=== PATIENT | female | born 1945 | race Caucasian/White ===

== ENCOUNTER 2021-07-22 14:35 | Emergency (ER) | payer MEDICARE, OTHER, SELFPAY ==
--- NOTE | 2021-07-22 14:38 | W.ED.GENADLT ---
HPI - General Adult General: Chief complaint: General Medical Stated complaint: RIGHT UPPER THIGH PAIN R/O DVT Time Seen by Provider: 07/22/21 14:37 History of Present Illness: HPI narrative: Ms. Wiley is a 75-year-old lady with history of pain, hypertension, hyperlipidemia who presents to the emergency department due to leg pain. Symptom onset was approximately 4:56 AM this morning and sudden. She noticed right upper thigh pain which is worse on the outside and associated swelling. She does not recall any sort of preceding injury. Symptom intensity is moderate. Quality is aching. Worse with exertion or movement. No other specific changes in health, exacerbating, relieving factors identified. Patient was seen at outside clinic without capability for DVT study and a D-dimer was performed which was elevated. Review of Systems General: Reports: 10 or more systems reviewed and unremarkable except in HPI and below Physical Exam Narrative: EXAM NARRATIVE: GENERAL/CONSTITUTIONAL -uncomfortable appearing. Obese Eyes -no scleral icterus, no conjunctival injection ENMT - Atraumatic external nose and ears. Moist mucous membranes NECK - supple. trachea midline CARDIOVASCULAR - regular rate and rhythm. RESPIRATORY -clear to auscultation bilaterally. ABDOMEN/GI - Nontender/Nondistended. MSK -right thigh with swelling, tender to palpation, no discrete lesions or identified injury. Distal CMS intact SKIN - Warm, Dry. No rashes NEURO - alert and appropriately oriented. Moves all extremities equally. Course ED course: - Patient was seen and evaluated by me at bedside - Patient placed on cardiac monitors, IV access obtained - Initial evaluation notable for exam as above -Symptom treatment ordered - Labs notable for no leukocytosis. Mild evidence of dehydration with no recent creatinine - Imaging notable for negative DVT study. Unfortunately D-dimer was positive at outside facility and the patient does endorse mild shortness of breath therefore CTA required. In order to obtain CTA labs were obtained as noted above. CTA negative for pulmonary embolism. - Upon serial reexamination after treatment the patient was improved with symptom treatment - Based on patient history, evaluation, labs, and imaging as interpreted the most likely cause of the patient's condition is unclear soft tissue swelling - The results of ED evaluation were discussed with the patient including prescriptions and/or symptomatic cares (if applicable) including appropriate and responsible use, followup plan, and return precautions. The patient verbalized understanding and felt safe for discharge. - Patient discharged in satisfactory condition. Vital Signs: Vital signs: Vital Signs Temperature 97.6 F 07/22/21 14:50 Pulse Rate 70 07/22/21 19:28 Respiratory Rate 16 07/22/21 19:28 Blood Pressure 170/106 07/22/21 19:28 Pulse Oximetry 95 07/22/21 19:28 [facility] - General Adult Medical Records: Attestation: I reviewed the patient's medical records. Lab Data: Attestation: I reviewed the patient's lab results. Labs: Lab Results 07/22/21 07/22/21 17:02 17:02 WBC 9.5 10^3/uL 10^3/ uL (4.0-10.0) RBC 5.00 10^6/uL 10^6 /uL (4.1-5.3) Hgb 13.0 g/dL g/dL (11.5-15.3) Hct 41.1 % % (37.0-47.0) MCV 82.2 fl fl (81-99) MCH 26.0 pg L pg (28.0-34.0) MCHC 31.6 g/dL g/dL (30.0-36.0) RDW 15.4 % H % (12.1-15.1) Plt Count 269 10^3/cmm 10^3 /cmm (130-400) MPV 12.2 fL H fL (7.4-10.4) Neut % (Auto) 55.7 % % Lymph % (Auto) 32.8 % % [place] % (Auto) 9.1 % % Eos % (Auto) 1.8 % % Baso % (Auto) 0.3 % % Neut # (Auto) 5.29 10^3/uL 10^3 /uL (1.8-7.7) Lymph # (Auto) 3.1 10^3/uL 10^3/ uL (0.8-4.8) [place] # (Auto) 0.9 10^3/uL 10^3/ uL (0.2-0.9) Eos # (Auto) 0.2 10^3/uL 10^3/ uL (0.0-0.8) Baso # (Auto) 0.0 10^3/uL 10^3/ uL (0.0-0.1) Nucleated RBC % (a uto) 0 % % Nucleated RBCs # 0.0 /100WBC /100W BC Sodium 137 mmol/L mmol/L (136-145) Potassium 4.4 mmol/L mmol/L (3.5-5.1) Chloride 98 mmol/L mmol/L (98-107) Carbon Dioxide 28 mmol/L mmol/L (22-29) Anion Gap 15.4 (5-19) BUN 20 mg/dL mg/dL (8-23) Creatinine 1.4 mg/dL H mg/dL (0.5-0.9) GFR Calculation Not Reportable Glucose 105 mg/dL mg/dL (65-115) Calculated Osmolal ity 287 mOsm/kg mOsm/ kg (285-295) Calcium 9.3 mg/dL mg/dL (8.5-10.5) EKG Data^: EKG 1: Attestation: I personally reviewed and interpreted this EKG as follows: EKG interpretation date: 07/22/21 EKG interpretation time: 18:30 Interpretation: Twelve-lead EKG shows a regular rhythm at a rate of 60. DE interval 194, QRS duration 98, QTc 455. Left axis deviation. Interpretation: Sinus rhythm. Nonspecific QRS morphology abnormalities. Computer generated interpretation: Venous Duplex 07/22/21 15:07 IMPRESSION: No sonographic evidence of deep vein thrombosis. Chest CTA 07/22/21 16:41 IMPRESSION: 1. No CT evidence of pulmonary embolism. 2. Additional findings, as above. Discharge Plan Discharge Patient Disposition: Home Clinical Impression: Leg swelling, Acute leg pain, Elevated d-dimer, Hypertension, uncontrolled Condition: Stable Prescriptions: No Action hydrocodone-acetaminophen 10-325 mg tablet 1 tab PO BID PRN (Reason: Pain) RF: 0 acetaminophen [Tylenol Extra Strength] 500 mg tablet 500 mg PO Q6H PRN (Reason: Pain) RF: 0 alendronate [Fosamax] 70 mg tablet 70 mg PO Q7D RF: 0 atenolol 25 mg tablet 25 mg PO BID RF: 0 cholecalciferol (vitamin D3) 1,250 mcg (50,000 unit) tablet 1,250 mcg PO Q7D RF: 0 furosemide 20 mg tablet 20 mg PO BID RF: 0 gabapentin 100 mg capsule 200 mg PO BEDTIME RF: 0 lisinopril 20 mg tablet 20 mg PO BID RF: 0 mupirocin 2 % ointment 1 applic topical DAILY RF: 0 pantoprazole [Protonix] 40 mg tablet,delayed release (DR/EC) 40 mg PO DAILY RF: 0 potassium chloride 10 mEq capsule, extended release 10 meq PO DAILY RF: 0 pramipexole [Mirapex] 0.75 mg tablet 0.75 mg PO DAILY RF: 0 rosuvastatin [Crestor] 5 mg tablet 5 mg PO DAILY RF: 0 trazodone 50 mg tablet 50 - 100 mg PO BEDTIME RF: 0 Euthyrox 100 mcg tablet 100 mcg PO DAILY RF: 0 promethazine 25 mg tablet 25 mg PO Q8H PRN (Reason: Nausea) RF: 0 sertraline 25 mg Tablet 25 mg PO DAILY RF: 0 albuterol sulfate 90 mcg/actuation Hfa Aerosol Inhaler 2 puff INHALATION Q6H PRN (Reason: Shortness Of Breath) RF: 0 Voltaren 1 % Gel 2 g TOPICAL QID PRN (Reason: Pain) RF: 0 Discharge Orders: Discharge ED (Routine); Ordered 07/22/21 Ordered By: Vladislav Loya Referrals: Arnoldo Wiley [Primary Care Provider] - Discharge Diet: Usual diet Discharge Activity: Increase activity as tolerated Patient Instructions: Hypertension (ED), Leg Pain (ED), Opioid Safety Activity Restrictions/Additional Instructions: Thank you for visiting the emergency department. You were seen and evaluated for leg pain and swelling. The exact cause of your symptoms is unclear, ultrasound did not reveal a blood clot and your previously obtained x-rays were read as normal. Given the elevated D-dimer a CTA was performed and no evidence of pneumonia or blood clot in your lungs were seen. Please follow-up with your primary care provider. Your blood pressure was significantly elevated and likely needs additional medication/treatment. Return to the emergency department for worsening symptoms or anything else that you are concerned about and feel needs emergency department evaluation. 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
[2021-07-22 14:50] VITALS: BP 214/104; PULSE 56; RESP 16; TEMP 36.4; O2SAT 96; BMI 38.6
--- NOTE | 2021-07-22 15:07 | USR_ITS ---
PROCEDURE INFORMATION: Exam: US Duplex Right Lower Extremity Veins, Limited Exam date and time: 07/22/2021 3:07 PM Age: 75 years old Clinical indication: Pain; Leg, upper; Right; Additional info: Swelling, right thigh pain, R/O dvt TECHNIQUE: Imaging protocol: Real-time Duplex ultrasound of the Right Lower Extremity with 2-D pollard scale, color Doppler flow and spectral waveform analysis with image documentation. Limited exam was focused on the right lower extremity veins. COMPARISON: No relevant prior studies available. FINDINGS: Right deep veins: Unremarkable. The common femoral, femoral, proximal profunda femoral, popliteal, posterior tibial and peroneal veins are patent without thrombus. Normal Doppler waveforms. Normal compressibility and/or augmentation response. Right superficial veins: Unremarkable. Saphenofemoral junction is patent without thrombus. Soft tissues: Unremarkable. US/[place] [id number] IMPRESSION: No sonographic evidence of deep vein thrombosis.
[2021-07-22] MEDS: oxyCODONE 5 mg IR Tab/Cap PO (16:13)
--- NOTE | 2021-07-22 16:41 | CTR_ITS ---
PROCEDURE INFORMATION: Exam: CTA Chest With Contrast Exam date and time: 07/22/2021 4:41 PM Age: 75 years old Clinical indication: Abnormal findings; Abnormal diagnostic tests; Elevated d-dimer; Prior surgery; Surgery date: 6+ months; Surgery type: Gb; Additional info: Elevated d dimer, SOB TECHNIQUE: Imaging protocol: Computed tomographic angiography of the chest with contrast. Axial, coronal and sagittal reformatted images were created and reviewed. 3D rendering (Not supervised by radiologist): MIP and/or 3D reconstructed images were created by the technologist. Radiation optimization: All CT scans at this facility use at least one of these dose optimization techniques: automated exposure control; mA and/or kV adjustment per patient size (includes targeted exams where dose is matched to clinical indication); or iterative reconstruction. Contrast material: VISI; Contrast volume: 95 ml; Contrast route: INTRAVENOUS (IV); COMPARISON: CR Chest 2 views* [id number] 04/11/2019 5:59 PM RADIATION DOSE METRICS: Total DLP (mGy-cm): 576.01 FINDINGS: Pulmonary arteries: Contrast opacification satisfactory. No intraluminal filling defect. Aorta: Unremarkable. No aneurysm or dissection. Other arteries: Mild atherosclerotic disease. No aneurysm or dissection. Lungs: Mild central peribronchial thickening, suggestive of airway inflammation. Mild linear stranding and groundglass, likely due to atelectasis and/or scarring. No focal consolidation. Pleural spaces: Unremarkable. No pneumothorax. No pleural effusion. Heart: Unremarkable. No cardiomegaly. No pericardial effusion. Lymph nodes: No pathologically enlarged lymph nodes. Gallbladder and bile ducts: Status post cholecystectomy. No biliary ductal dilatation. Bones/joints: No acute osseous abnormality. Osteopenia. Degenerative changes. Soft tissues: Unremarkable. CT/CT angio chest PE protcl [id number] IMPRESSION: 1. No CT evidence of pulmonary embolism. 2. Additional findings, as above.
--- NOTE | 2021-07-22 17:11 | ECG_ITS ---
[facility] Test Date: 2021-07-22 Pat Name: Monique Wiley Department: Room: Gender: Female Facilities Officer: : 1945 Requested By: Vladislav Loya Order Number: [id number] Renteria MD: Bee Rios M.D. Measurements Intervals [place] Rate: 60 P: 45 GA: 194 QRS: -15 QRSD: 98 T: 55 QT: 453 QTc: 455 Interpretive Statements SINUS RHYTHM NONSPECIFIC ST & T-WAVE ABNORMALITY Compared to ECG 08/31/2016 07:11:19 T-wave abnormality now present Sinus tachycardia no longer present Myocardial infarct finding no longer present Electronically Signed On 07-23-2021 16:55:43 INTERNET PROJECT MANAGER by Bee Rios M.D. [id number]
[2021-07-22 17:20] LABS: Basophils % 0.3 %; Eosinophils # 0.2 10^3/uL (0.0-0.8); Eosinophils % 1.8 %; Hematocrit 41.1 % (37.0-47.0); Lymphocytes # 3.1 10^3/uL (0.8-4.8); Lymphocytes % 32.8 %; Mean Corpuscular HGB Conc 31.6 g/dL (30.0-36.0); Mean Corpuscular Volume 82.2 fl (81-99); Mean Platelet Volume 12.2 fL (7.4-10.4); Monocytes # 0.9 10^3/uL (0.2-0.9); Monocytes % 9.1 %; Neutrophils # 5.29 10^3/uL (1.8-7.7); Neutrophils % 55.7 %; Nucleated Red Blood Cells % 0 %; Platelet Count 269 10^3/cmm (130-400); Red Cell Distribution Width 15.4 % (12.1-15.1); White Blood Count 9.5 10^3/uL (4.0-10.0)
[2021-07-22 17:30] LABS: Blood Urea Nitrogen 20 mg/dL (8-23); Calcium 9.3 mg/dL (8.5-10.5); Carbon Dioxide 28 mmol/L (22-29); Chloride 98 mmol/L (98-107); Glucose 105 mg/dL (65-115); Osmolality Calculated 287 mOsm/kg (285-295); Sodium 137 mmol/L (136-145)
[2021-07-22 17:36] LABS: Anion Gap 15.4 (5-19); Potassium 4.4 mmol/L (3.5-5.1)
[2021-07-22] MEDS: iodixanol 320 mg/mL 100mL Btl IV (18:17)
[2021-07-22] MEDS: hyDRALAzine 20 mg/mL INJ 1 mL 10 MG IVP (19:04)
[2021-07-22 19:28] VITALS: BP 170/106; PULSE 70; RESP 16; O2SAT 95
== END 2021-07-22 19:29 | disposition home or self-care (01) ==
PROVIDERS: Emergency Provider Emergency Medicine; PCP Family Medicine
DX: M79.604 Pain in right leg (principal); M79.89 Other specified soft tissue disorders; I10 Essential (primary) hypertension; R79.89 Other specified abnormal findings of blood chemistry
CPT/HCPCS: 71275; 80048; 85025; 93005; 93971; 96374; 99283; J0360; Q9967

== ENCOUNTER 2021-11-15 08:51 | Outpatient (CLI) | payer MEDICARE, OTHER, SELFPAY ==
[2021-11-15 09:10] VITALS: BMI 38.2
--- NOTE | 2021-11-15 09:12 | ECG_ITS ---
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 Interpretive Statements NAME OF STUDY: LEXISCAN SESTAMIBI STRESS TEST INDICATION: Chest Pain, PROCEDURE: At the baseline, the EKG revealed normal sinus rhythm with some nonspecific ST changes.. The baseline blood pressure was 218/99 mm Hg with a heart rate of 63 beats/min. Lexiscan was infused over a period of 20 seconds. A total of 0.4 milligrams of Lexiscan was infused. The stress phase was continued for a total of 5 minutes. Heart rate at the end of the stress phase was 84 with a blood pressure 231/97. The EKG at the peak infusion revealed more prominent ST depressions in the inferior and anterolateral leads. Sestamibi was injected 20 seconds after the Lexiscan infusion. Blood pressure at the end of the recovery phase was 203/98 with a heart rate of 64 per minute. The EKG reverted back to the baseline CONCLUSION: 1. Nonspecific EKG changes with the LexiScan infusion 2. No LexiScan induced chest pain or cardiac arrhythmia 3. Normal blood pressure and heart rate response 4. Sestamibi/sestamibi perfusion scan pending; see separate report. Pt became dizzy with nausea while walking from [facility] to [facility]-after the resting scan. Pre stress test chest pain 6/10. The pain increased in intensity 8/10 during test . 2 doses aminophylline given in recovery phase. Post test patient reported chest pain was same intensity 6/10 as it was before test. Electronically Signed On 11-17-2021 11:15:04 CDT by Rhett Luu M.D. [id number]
--- NOTE | 2021-11-15 09:12 | NMCV_ITS ---
NM naheed perf SPECT r/s* [id number] Monique Wiley Age: 76 Gender: F : 1945 Exam Date: 11/15/2021 09:52 Ordering Phys: Arnoldo Wiley Technologist: BASIA Rivera Exam Location: [facility] Indications: CHEST PAIN STRESS TEST Please see separate stress test report in [facility] for full findings IMAGE PROTOCOL Rest/Stress 1 Lexiscan Day Radiopharmaceutical Dose (mCi) Administration Site Administered by Rest: Tc-99m 10.8 IV BASIA Pascual Sestamibi Stress:Tc-99m 32.7 IV BASIA Pascual Sestamibi Rest: 15-Nov-2021 60 Discovery 630 Stress: 15-Nov-2021 30 Discovery 630 0.4mg Lexiscan. Supine position only as patient was unable to lay prone. SPECT RESULTS Technical Quality: Excellent Raw Data Analysis: Normal Image Corrections: No attenuation or motion correction applied Summed Stress Score: 4 Summed Rest Score: 0 Summed Difference Score: 4 PERFUSION FINDINGS Small to moderate area of decreased tracer uptake in the mid inferolateral, mid anterolateral and apical lateral regions. Significant reversibility was noted in these regions at rest FUNCTIONAL RESULTS (calculated via Gated SPECT) Stress Image LV EF (%): 75 Stress EDV (mL):89 TID: 0.82 Stress ESV (mL):22 FUNCTIONAL FINDINGS: Segmental wall motion analysis revealing no gross wall motion abnormalities IMPRESSIONS 1. Myocardial perfusion imaging revealing small to moderate area of reversible defect in the inferolateral, anterolateral and apical lateral regions, suggestive of ischemia in the distribution of the left circumflex artery. 2. Normal LV ejection fraction of 75%. 3. LV wall motion analysis revealing no gross wall motion abnormalities. 4. Normal LV volume No similar previous studies are available for comparison. Dr Rhett Luu MD [facility] (Electronically Signed) Final Date: 15 November 2021 13:04 S
[2021-11-15] MEDS: regadenoson 0.4 Mg/5 ml Syringe IVP (10:34)
[2021-11-15] MEDS: ondansetron 2 mg/ML SDV 2 mL 4 MG IVP (10:43)
[2021-11-15] MEDS: aminophylline 25 mg/mL SDV 10 mL IVP ×2 (10:55→11:04)
--- NOTE | 2021-11-15 10:56 | PC.NURSE ---
Pre stress test note Pt became dizzy and nauseated walking [facility] to [facility]. Wheelchair obtained. 4mg zofran given prior to test. Pre stress test pt reports cp of 01/04.
[2021-11-15 11:13] VITALS: BP 203/98; PULSE 64
== END 2021-11-15 08:52 | disposition home or self-care (01) ==
LOC: RAD 08:52 → CDL 09:16
PROVIDERS: PCP Family Medicine; Visit Provider Family Medicine
DX: R07.9 Chest pain, unspecified (principal); R06.02 Shortness of breath
CPT/HCPCS: 78452; 93017; A9500; J0280; J2405; J2785

== ENCOUNTER → 2022-01-17 13:56 | Outpatient (BNVA) | payer MEDICARE, OTHER, SELFPAY | PROVIDERS: PCP Family Medicine; Visit Provider Internal Medicine | DX: R07.9 Chest pain, unspecified (principal); R94.39 Abnormal result of other cardiovascular function study; R01.1 Cardiac murmur, unspecified; E11.22 Type 2 diabetes mellitus with diabetic chronic kidney disease; I12.9 Hypertensive chronic kidney disease with stage 1 through stage 4 chronic kidney disease, or unspecified chronic kidney disease; N18.30 Chronic kidney disease, stage 3 unspecified; Z79.84 Long term (current) use of oral hypoglycemic drugs | CPT/HCPCS: 99204 ==

== ENCOUNTER → 2022-02-05 08:20 | Outpatient (BNVA) | payer MEDICARE, OTHER, SELFPAY | PROVIDERS: PCP Family Medicine; Visit Provider Internal Medicine | DX: R07.9 Chest pain, unspecified (principal); R94.39 Abnormal result of other cardiovascular function study; I10 Essential (primary) hypertension; R01.1 Cardiac murmur, unspecified | CPT/HCPCS: 80048; 85025; 85610 ==

== ENCOUNTER 2022-02-07 05:46 | Outpatient (CLI) | payer MEDICARE, OTHER, SELFPAY ==
[2022-02-07] VITALS (24 sets, daily range): BP systolic 117–236; BP diastolic 66–93; PULSE 56–77; RESP 15–20; TEMP 37; O2SAT 95–99; BMI 38.7
--- NOTE | 2022-02-07 06:00 | XACV_ITS ---
Exam Room: 2 Ht: 165 cm Wt: 106 kg BSA: 2.25 m2 Gender: Female : 1945 Any Known Allergies: Other Exam Priority: Routine Procedure(s): Procedure Description: Diagnostic procedure Procedure Description: Left Heart Catheterization Procedure Description: Coronary Angiography Diagnostic Cath Status: Elective Diagnostic Findings * Indication: 76-year-old female with past medical history of hypertension who was referred for evaluation of chest pain and abnormal stress test. According to patient for the last 6 months he has been having on and off substernal chest pain. It is mostly exertional. Feels pressure-like. Also feels very short of breath on exertion. Blood pressure also staying very high. Plan for left heart cath with possible percutaneous coronary intervention. * No significant disease noted in the Left Main, Left Anterior Descending, Right, or Circumflex coronary arteries. * 1st Diagonal: Moderate 60% stenosis, EUGENE: 3 flow. * Coronary angiography shows right dominance. Interventional Findings * Procedure detail: We engaged left main artery with XB 3.5 guide catheter. IV heparin was administered to maintain ACT above 250 S. After normalization, IFR wire was advanced into large sized diagonal artery. IFR value of 0.96 was obtained. This was nonischemic. iFR wire was removed and final angiogram was performed. Patient left the [employer] in a stable condition. Conclusions 1. No significant disease noted in the Left Main, Left Anterior Descending, Right, or Circumflex coronary arteries. 2. Moderate first diagonal artery stenosis. Nonischemic IFR value of 0.96. Recommendations * Aggressive risk factor control including blood pressure control. * Outpatient cardiology follow up in 4 weeks. Interventional RX Recommendation: medical therapy and/or counseling Diagnostic RX Recommendation: none Anticoagulation: Heparin Pressures Phase:Rest AO : 164 / 60 ( 96 ) @ 9:23:00 AM 166 / 61 ( 97 ) @ 9:23:00 AM LV : 157 / 4 / 21 @ 9:23:00 AM 157 / 4 / 21 @ 9:23:00 AM 153 / 6 / 22 @ 9:23:00 AM Valves Phase:DefaultPhase AV : 0.0 @ 8:47:31 AM AV Mean Gradient: 0.0 @ 8:47:31 AM Clinical Evaluation EBL: 5mL-10mL Procedural Details Procedure Consent Obtained. Admit Source: Out Patient. Pre-Procedure Time Out. Identified patient by full name and date of as verbalized by the patient/guarantor. Does the consent match the physician's order: Yes. Accurate & Complete Informed Consent: Yes. Inpatient/Outpatient History & Physical on Chart: Yes. If H&P is completed, is and addenduem needed: No; If yes, is the addendum complete: N/A. Visualize and Verify Site with Patient/Guarantor: N/A. Relevant Radiology Images available: N/A. The risks, benefits, and alternatives of sedation and/or procedure were discussed by physician. The patient agrees to continue. Procedure started. [facility] Clinical Fraility Score: 3: Managing Well. [employer] Indications: Worsening Angina, Abnormal stress test. Chest Pain Symptom Assessment: Typical Angina Symptoms. Correct patient, site and procedure confirmed by cath team. Current diagnosis: Chest Pain. PERRLA. Strong, equal hand pipefitter bilaterally. Lungs clear x 5 lobes. IV Site on Arrival: 20 gauge in the left anticubital. IV Fluids: 0.9% NaCl at KVO. 0 mL infused prior to computer lab para professional. Pre Procedural Pulses: bilateral radial was 2+. Pre Procedural Pulses: bilateral posterior tibial was Doppled. Pre Procedural Pulses: bilateral dorsalis pedis was 2+. Oxygen started at 2liters/min via nasal canula. right radial was prepped with chloroprep then draped in the usual sterile fashion. right groin was prepped with chloroprep then draped in the usual sterile fashion. Physician notified. Baseline sample Acquired. HR: 63 BPM. Physician arrived. Physician scrubbed in. Immediate Pre-Procedure Time Out. Correct Patient: Yes; Correct Procedure: Yes; Correct Site: Yes; Correct Patient Position: Yes; Correct Supplies: Yes; Dried Flammable Prep: Yes; Blood Products Available: No;. Lidocaine 1% infiltrated to the right radial. Arterial access obtained. A 5 colombian TIG catheter in over wire. Multiple views taken of left coronary artery. Catheter redirected to the RCA. Multiple views taken of right coronary artery. EDP Sample taken: LV 157/4,21; HR: 61 BPM; SpO2: 96%. Pullback taken: LV 153/6,22; AO 164/60(96); Mean: 0mmHg, Peak to Peak: 0mmHg, SEP: 4sec/min; HR: 63 BPM; SpO2: 98%. Catheter out. 6 colombian XB 3.5 guide catheter was inserted over the wire. Standard wire out. Guide catheter out over wire due to kink in guide catheter. Second 6 colombian XB 3.5 guide catheter was inserted over the wire. iFR pressure wire advanced through guide catheter and directed to ostial 1st diagonal branch. IFR pressure wire advanced across lesion to distal diagonal artery. IFR ostial 1st diagonal 0.96. IFR Pull back 0.93. IFR pressure wire out through guide catheter. Guide catheter out. Post Procedure: Pulses reassessed and unchanged. PERRLA. Strong, equal hand pipefitter bilaterally. No VTE prophylaxis required. A TR Band was successful obtaining hemostatsis at the Right Radial artery insertion site. Medication's Wasted: Lidocaine 1% = 2 mL. Medication's Wasted: Nitro = 49.7 mg. Medication's Wasted: Heparin = 1000 unit. Total IV fluids: 42 mL. Post-op diagnosis: Moderate diagonal stenosis. Complications: None. Estimated blood loss: 5mL-10mL. Responsiveness - Normal response to verbal stimuli; alert and oriented, PERRLA. Airway - Unaffected, no intervention required; spontaneous ventilation. Circulation: W/N/L, pulses unchanged. Nausea/Vomiting: N/A. Procedure completed. Patient transferred by wheelchair to CPRU. Access Site Site: Right Radial artery Sheath Size: 6 Fr Hemostasis Method: TR Band Hemostasis Success: Successful Procedure Medications Start: 8:09 AM Stop: 8:09 AM Medication: Hydralazine Amount: 20 mg Route: I.V. Start: 8:12 AM Stop: 8:12 AM Medication: Versed Amount: 1 mg Route: I.V. Start: 8:12 AM Stop: 8:12 AM Medication: Fentanyl Amount: 50 mcg Route: I.V. Start: 8:15 AM Stop: 8:15 AM Medication: Versed 1 mg and Fentanyl 25 mcg Route: I.V. Start: 8:16 AM Stop: 8:16 AM Medication: Nitrogylcerin Amount: 300 mcg Route: I.A. Start: 8:17 AM Stop: 8:17 AM Medication: Heparin Amount: 5000 units Route: I.V. Start: 8:24 AM Stop: 8:24 AM Medication: Heparin Amount: 5000 units Route: I.V. Start: 8:33 AM Stop: 8:33 AM Medication: Versed 1 mg and Fentanyl 25 mcg Route: I.V. I, the attending physician, have reviewed and verified all procedure medications. Yes, all medications given per verbal order History/Risk Factors Hypertension: Yes Dyslipidemia: Yes Peripheral Arterial Disease (PAD): No Myocardial Infarction ([place]): No Obesity: Yes Renal Disease: No Prior Interventions PCI: No CABG: No Valve Surgery: No Report Signatures Finalized by Ezequiel Benjamin MD on 02/17/2022 04:03 PM
[2022-02-07] MEDS: diphenhydrAMINE 50 mg Capsule PO (06:15)
--- NOTE | 2022-02-07 08:06 | P.HPUD_ITS ---
Surgery/Procedure H&P Update DATE OF PROCEDURE: February 07, 2022 DATE H&P PERFORMED: 01/17/22 H&P UPDATE INFORMATION: I have reviewed H&P completed within last 30 days, I have examined patient prior to procedure and No changes to prior documentation PREOP DIAGNOSIS: Chest pain/abnormal stress test PRIMARY INDICATION FOR PROCEDURE: Chest pain/abnormal stress test PLANNED PROCEDURE: Operation Date: 02/07/22 07:00 Proposed Procedures Left heart cath with possible percutaneous coronary intervention - Ezequiel Benjamin M.D PATIENT REASSESSED PRIOR TO SEDATION, WITH NO CHANGE NOTED: Yes PHYSICAL EXAM: alert, oriented x 3, clear to auscultation bilaterally and regul ar rate & rhythm AIRWAY EVAL/ANESTHESIA PLAN: ASA III, Local Anesthesia, Risks, benefits & alternatives of sedation and/or procedure discussed and Patient agrees to continue as planned ADDITIONAL INFORMATION: Moderate sedation
--- NOTE | 2022-02-07 09:00 | PC.NURSE ---
Fluid Order Clarification Verbal orders received from Dr. Benjamin for NS fluids to run at 75ml/hr until discharge home.
--- NOTE | 2022-02-07 10:23 | PC.NURSE ---
Physician Notified Dr. Benjamin notified of BP 194/76. Pt reports headache as well. Telephone orders received for 10mg Hydralizine IVP and 1 gram tylenol PO , and to give dose of home BP medications including lisinopril 20mg PO, Amlodipine 10mg PO, and Atenolol 50mg PO. RBTO.
[2022-02-07] MEDS: amlodipine 10 mg Tablet PO (10:35)
[2022-02-07] MEDS: lisinopril 20 mg Tablet PO ×2 (10:35→12:50)
[2022-02-07] MEDS: hyDRALAzine 20 mg/mL INJ 1 mL 10 MG IVP (10:35)
[2022-02-07] MEDS: acetaminophen 500 mg Tablet 1000 MG PO (10:35)
[2022-02-07] MEDS: atenolol 50 mg Tablet PO (10:35)
--- NOTE | 2022-02-07 12:47 | PC.NURSE ---
Physician Notified Continued hypertension BP 200/73. Telephone orders received for administration of another 20mg PO Lisinopril and HCTZ 12.5mg PO.
[2022-02-07] MEDS: hydroCHLOROthiazide 25 mg Tablet 12.5 MG PO (12:50)
== END 2022-02-07 14:18 | disposition home or self-care (01) ==
PROVIDERS: PCP Family Medicine; Visit Provider Internal Medicine
DX: R94.39 Abnormal result of other cardiovascular function study (principal); R07.9 Chest pain, unspecified; I25.10 Atherosclerotic heart disease of native coronary artery without angina pectoris; E78.5 Hyperlipidemia, unspecified; E66.9 Obesity, unspecified; Z68.38 Body mass index [BMI] 38.0-38.9, adult; F32.9 Major depressive disorder, single episode, unspecified; Z86.73 Personal history of transient ischemic attack (TIA), and cerebral infarction without residual deficits; E11.22 Type 2 diabetes mellitus with diabetic chronic kidney disease; I12.9 Hypertensive chronic kidney disease with stage 1 through stage 4 chronic kidney disease, or unspecified chronic kidney disease; N18.2 Chronic kidney disease, stage 2 (mild)
CPT/HCPCS: 36415; 93452; 93458; 93571; 96360; 96361; 99152; 99153; C1769; C1887; C1894; J0360; J1644; J2250; J3010; J3490; J7030; Q0163; Q9967

== ENCOUNTER 2022-02-10 02:28 | Observation (INO) | payer MEDICARE, OTHER, SELFPAY ==
[2022-02-10] VITALS (14 sets, daily range): BP systolic 147–194; BP diastolic 52–78; PULSE 46–75; RESP 15–23; TEMP 36.4–36.7; O2SAT 90–97; BMI 38.7
--- NOTE | 2022-02-10 03:35 | XRR_ITS ---
PROCEDURE INFORMATION: Exam: XR Chest Exam date and time: 02/10/2022 3:46 AM Age: 76 years old Clinical indication: Pain; Angina pectoris; Additional info: Cp TECHNIQUE: Imaging protocol: Radiologic exam of the chest. Views: 1 view. COMPARISON: CT angio chest PE protcl [id number] 07/22/2021 6:13 PM FINDINGS: Lungs: There are normal lung volumes without airspace opacities. Mild left basilar atelectasis is seen. Age-related interstitial prominence is seen in the lungs. Pleural spaces: There are no pleural effusions or pneumothorax. Heart/Mediastinum: The heart size is at the upper limit of normal. There is a mildly tortuous thoracic aorta. The trachea is in the midline. Bones/joints: No acute abnormalities. Small degenerative osteophytes are seen throughout the thoracic spine. Mild bilateral shoulder degenerative changes are seen. XR/XR chest 1V portable [id number] IMPRESSION: Mild left basilar atelectasis. No confluent infiltrates in the lungs.
--- NOTE | 2022-02-10 03:35 | ECG_ITS ---
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 Measurements Intervals [place] Rate: 48 P: 63 [place]: 177 QRS: 15 QRSD: 97 T: 29 QT: 480 QTc: 430 Interpretive Statements SINUS BRADYCARDIA NONSPECIFIC T-WAVE ABNORMALITY Compared to ECG 07/22/2021 18:24:49 Sinus rhythm no longer present T-wave abnormality still present Electronically Signed On 02-11-2022 8:09:36 CDT by Ezequiel Benjamin M.D. [id number] f
[2022-02-10 03:42] LABS: Basophils # 0.1 10^3/uL (0.0-0.1); Basophils % 0.5 %; Eosinophils # 0.3 10^3/uL (0.0-0.8); Eosinophils % 2.5 %; Hematocrit 38.2 % (37.0-47.0); Lymphocytes # 3.9 10^3/uL (0.8-4.8); Mean Corpuscular HGB Conc 31.4 g/dL (30.0-36.0); Mean Corpuscular Hemoglobin 27.5 pg (28.0-34.0); Mean Corpuscular Volume 87.4 fl (81-99); Mean Platelet Volume 12.4 fL (7.4-10.4); Monocytes % 9.5 %; Neutrophils # 4.99 10^3/uL (1.8-7.7); Neutrophils % 49.2 %; Nucleated Red Blood Cells % 0 %; Platelet Count 253 10^3/cmm (130-400); Red Blood Count 4.37 10^6/uL (4.1-5.3); Red Cell Distribution Width 14.9 % (12.1-15.1); White Blood Count 10.1 10^3/uL (4.0-10.0)
[2022-02-10 04:07] LABS: Troponin(5th) Baseline 15 ng/L (0-10)
[2022-02-10 04:12] LABS: Alanine Aminotransferase 9 U/L (0-33); Albumin Level 3.9 g/dL (3.5-5.2); Alkaline Phosphatase 115 IU/L (35-105); Anion Gap 15.4 (5-19); Aspartate Amino Transferase 13 U/L (0-32); Blood Urea Nitrogen 16 mg/dL (8-23); Calcium 9.4 mg/dL (8.5-10.5); Carbon Dioxide 24 mmol/L (22-29); Chloride 106 mmol/L (98-107); Creatine Phosphokinase 32 U/L (26-192); Glucose 123 mg/dL (65-115); NT Pro B Type Natriuretic Pept 306 pg/mL (0-125); Osmolality Calculated 297 mOsm/kg (285-295); Potassium 3.4 mmol/L (3.5-5.1); Sodium 142 mmol/L (136-145); Total Bilirubin 0.2 mg/dL (0.15-1.2); Total Protein 6.9 g/dL (6.6-8.7)
[2022-02-10] MEDS: ondansetron 2 mg/ML SDV 2 mL 4 MG IVP (04:13)
[2022-02-10] MEDS: fentaNYL 50 mcg/mL INJ 2mL IVP (04:14)
[2022-02-10 04:17] LABS: Creatinine Clr Calc Pharmacy 49.6555
--- NOTE | 2022-02-10 05:23 | ED_ITS ---
HPI - Chest Pain General: Chief Complaint: Chest Pain Stated Complaint: CP Time Seen by Provider: 02/10/22 02:38 Source: patient and family History of Present Illness: 76-year-old female presenting with chest discomfort. There is some nausea and shortness of breath as well. She states that she does not feel good at all. Heart rates were noted to be low. She had a coronary angiogram recently, showing a 60% stenosis in one of her arteries. She does not remember which one. No intervention. complaint: chest pain Pertinent past history: coronary artery disease Onset (ago): hour(s) Timing of current episode: constant Prior episodes: Yes Onset: during rest Pain location: substernal Quality: tightness, aching and heaviness Relieving factors: nothing Exacerbating factors: nothing Associated symptoms: Reports diaphoresis, dyspnea and nausea; Deny abdominal pain, fever(s) or leg edema Review of Systems Const: Reports: diaphoresis; Denies: fever(s) ENMT: Denies: throat pain Card: Reports: chest pain Resp: Reports: dyspnea GI: Reports: nausea; Denies: abdominal pain PFSH ED PFSH: Medical History Acquired hypothyroidism ED positive Atherosclerosis DDD (degenerative disc disease), lumbar Dyslipidemia Essential (primary) hypertension Facet syndrome Fibromyalgia GERD (gastroesophageal reflux disease) Lumbar spondylolysis Major depressive disorder Osteoarthritis Peripheral edema Restless leg syndrome Situational depression TIA (transient ischemic attack) 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 chronic kidney disease Surgical History (Updated 02/10/22 @ 12:16 by [place] Villegas MD) History of cardiac cath Family History (Updated 02/10/22 @ 12:16 by [place] Villegas MD) Other CAD (coronary artery disease) Social History Smoking and tobacco status: never smoked Physical Exam Const: GENERAL APPEARANCE: cooperative, ill appearing and frail appearing HENMT: COMMON NORMALS: normocephalic, atraumatic and Normal external nose present HEAD & SCALP: normocephalic and atraumatic FACE & SINUS: normal facial exam NOSE: Normal external nose present Eye: COMMON NORMALS: Equal, round and reactive pupils present and EOMs intact bilaterally PUPIL: Yes Equal, round and reactive pupils present Neck/C-Spine: GENERAL: Yes trachea midline Chest: CHEST: Yes Symmetrical chest wall rise Resp: COMMON NORMALS: normal respiratory effort, No use of accessory muscles and clear to auscultation bilaterally AUSCULTATION: clear to auscultation bilaterally Cardio: COMMON NORMALS: regular rhythm RATE: bradycardic RHYTHM: regular rhythm GI: COMMON NORMALS: Normal to inspection, nondistended, normoactive bowel sounds present Neuro: NASIM COMA SCALE: document GCS findings [place] coma scale eye opening: Spontaneous Nasim coma scale verbal response: Orientated Nasim coma scale motor response: Obey commands [place] coma scale total score: 15 Course Vital Signs: Vital signs: Vital Signs Temperature 97.7 F 02/11/22 00:00 Pulse Rate 66 02/11/22 00:00 Respiratory Rate 17 02/11/22 00:00 Blood Pressure 127/46 02/11/22 00:00 Pulse Oximetry 92 02/11/22 00:00 MDM - Chest Pain Medical Decision Making 76-year-old female with chest pain. She is found to have significant bradycardia, with rates as low as high 30s. Although she is maintaining a blood pressure, I believe she is significantly symptomatic with this. Her creatinine is 1.2. She does take atenolol. Her 2-hour troponin did not rise. No acute ST changes on her bradycardic EKG. Lab Data : 02/10/22 02:40 02/10/22 02:40 Radiology Impressions Chest X-Ray 02/10/22 03:35 IMPRESSION: Mild left basilar atelectasis. No confluent infiltrates in the lungs. Hip/Pelvis X-Ray 02/10/22 10:26 IMPRESSION: No acute findings. Laboratory Results WBC 10.1 10^3/uL (4.0-10.0) H 02/10/22 02:40 RBC 4.37 10^6/uL (4.1-5.3) 02/10/22 02:40 Hgb 12.0 g/dL (11.5-15.3) 02/10/22 02:40 Hct 38.2 % (37.0-47.0) 02/10/22 02:40 MCV 87.4 fl (81-99) 02/10/22 02:40 MCH 27.5 pg (28.0-34.0) L 02/10/22 02:40 MCHC 31.4 g/dL (30.0-36.0) 02/10/22 02:40 RDW 14.9 % (12.1-15.1) 02/10/22 02:40 Plt Count 253 10^3/cmm (130-400) 02/10/22 02:40 MPV 12.4 fL (7.4-10.4) H 02/10/22 02:40 Neut % (Auto) 49.2 % 02/10/22 02:40 Lymph % (Auto) 38.0 % 02/10/22 02:40 [place] % (Auto) 9.5 % 02/10/22 02:40 Eos % (Auto) 2.5 % 02/10/22 02:40 Baso % (Auto) 0.5 % 02/10/22 02:40 Neut # (Auto) 4.99 10^3/uL (1.8-7.7) 02/10/22 02:40 Lymph # (Auto) 3.9 10^3/uL (0.8-4.8) 02/10/22 02:40 [place] # (Auto) 1.0 10^3/uL (0.2-0.9) H 02/10/22 02:40 Eos # (Auto) 0.3 10^3/uL (0.0-0.8) 02/10/22 02:40 Baso # (Auto) 0.1 10^3/uL (0.0-0.1) 02/10/22 02:40 Nucleated RBC % (auto) 0 % 02/10/22 02:40 Nucleated RBCs # 0.0 /100WBC 02/10/22 02:40 Sodium 142 mmol/L (136-145) 02/10/22 02:40 Potassium 3.4 mmol/L (3.5-5.1) L 02/10/22 02:40 Chloride 106 mmol/L (98-107) 02/10/22 02:40 Carbon Dioxide 24 mmol/L (22-29) 02/10/22 02:40 Anion Gap 15.4 (5-19) 02/10/22 02:40 BUN 16 mg/dL (8-23) 02/10/22 02:40 Creatinine 1.2 mg/dL (0.5-0.9) H 02/10/22 02:40 GFR Calculation Not Reportable 02/10/22 02:40 Glucose 123 mg/dL (65-115) H 02/10/22 02:40 Calculated Osmolality 297 mOsm/kg (285-295) H 02/10/22 02:40 Calcium 9.4 mg/dL (8.5-10.5) 02/10/22 02:40 Total Bilirubin 0.2 mg/dL (0.15-1.2) 02/10/22 02:40 AST 13 U/L (0-32) 02/10/22 02:40 ALT 9 U/L (0-33) 02/10/22 02:40 Alkaline Phosphatase 115 IU/L (35-105) H 02/10/22 02:40 Creatine Kinase 32 U/L (26-192) 02/10/22 02:40 Troponin T Baseline 15 ng/L (0-10) H 02/10/22 02:40 Troponin T 120 Minute 11.18 ng/L (0-10) H 02/10/22 05:06 Delta Troponin T -3.82 ABS# (0-10) L 02/10/22 05:06 NT-Pro-B Natriuret Pep 306 pg/mL (0-125) H 02/10/22 02:40 Total Protein 6.9 g/dL (6.6-8.7) 02/10/22 02:40 Albumin 3.9 g/dL (3.5-5.2) 02/10/22 02:40 Globulin 3.0 g/dL (1.3-4.6) 02/10/22 02:40 Discharge Plan Discharge Patient Disposition: Placed in Observation Admit Provider: Beth Gregorio Clinical Impression: Bradycardia, Chest pain Condition: Stable Coding Level of Care Code ED Electrician Master for Chg Fwd
--- NOTE | 2022-02-10 05:35 | ECG_ITS ---
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 Measurements Intervals [place] Rate: 49 P: 73 [place]: 183 QRS: 21 QRSD: 92 T: 58 QT: 459 QTc: 417 Interpretive Statements SINUS BRADYCARDIA NONSPECIFIC T-WAVE ABNORMALITY Compared to ECG 02/10/2022 02:42:13 No significant changes Electronically Signed On 02-11-2022 18:15:17 CDT by Ezequiel Benjamin M.D. [id number]
[2022-02-10 05:38] LABS: Troponin 5 2HR 11.18 ng/L (0-10)
[2022-02-10 05:41] LABS: Troponin 5 2HR Delta -3.82 ABS# (0-10)
--- NOTE | 2022-02-10 07:51 | PC.NURSE ---
ATTEMPTED REPORT NURSE UNAVAILABLE.
--- NOTE | 2022-02-10 08:48 | PM.HP ---
Providers/Chief Complaint Admitting Physician: eBth Gregorio MD Primary Care Provider: Arnoldo Wiley Chief Complaint: CP History of Present Illness Monique Wiley is a 76 year old female who recently had coronary angiogram she had moderate diagonal stenosis, IFR negative, Dr. Benjamin recommended medical management. She is presented to the hospital for chief complaint of dizziness which she describing as lightheadedness, chest discomfort which she describing as pain radiating from the right shoulder towards her left jaw she has not noticed any substernal chest pain. Because of her concerning symptoms she decided come to the hospital for further evaluation. When I saw her her blood pressure was 194/74 mmHg. She was not complaining of any active chest pain. She was doing well on room air. I asked Dr. Benjamin to evaluate her as well. Potassium has been repleted. EKG is showing mild ST depression she is not having any active chest pain, I have also asked nurse to put Nitropaste if needed, for her bradycardia I have discontinued clonidine and atenolol. At the time of my evaluation heart rate is consistently above 60, Review of Systems Const: Denies: fever(s) Eyes: Denies: change in vision ENMT: Denies: throat pain Card: Reports: chest pain and dyspnea on exertion Resp: Reports: dyspnea GI: Denies: abdominal pain : Denies: flank pain Musc: Denies: neck pain Skin/Breast: Denies: rash Neuro: Denies: headache(s) Psych: Reports: anxiety Endo: Denies: polyuria Edgardo/Lymph: Denies: easy bruising All/Imm: Denies: urticaria Medications/Allergies Home Medications Medication Instructions Recorded Confirmed Last Taken Type acetaminophen 500 mg tablet 500 mg PO Q6H PRN 02/27/21 02/07/22 Unknown History (Tylenol Extra Strength) alendronate 70 mg tablet (Fosamax) 70 mg PO Q7D tab 02/27/21 02/07/22 02/04/22 History cholecalciferol (vitamin D3) 1,250 1,250 mcg PO Q7D tab 02/27/21 02/07/22 02/04/22 History mcg (50,000 unit) tablet furosemide 20 mg tablet 20 mg PO BID 02/27/21 02/07/22 02/06/22 21:00 History hydrocodone 10 mg-acetaminophen 1 tab PO BID PRN 02/27/21 02/07/22 Unknown History 325 mg tablet lisinopril 20 mg tablet 20 mg PO BID 02/27/21 02/07/22 02/06/22 21:00 History mupirocin 2 % topical ointment 1 applic TOPICAL DAILY g 02/27/21 02/07/22 Unknown History pantoprazole 40 mg tablet,delayed 40 mg PO DAILY 02/27/21 02/07/22 02/06/22 21:00 History release (Protonix) potassium chloride 10 mEq 10 meq PO DAILY 02/27/21 02/07/22 02/06/22 09:00 History capsule,extended release pramipexole 0.75 mg tablet 0.75 mg PO DAILY 02/27/21 02/07/22 02/06/22 21:00 History (Mirapex) trazodone 50 mg tablet 50 - 100 mg PO BEDTIME 02/27/21 02/07/22 02/06/22 21:00 History albuterol sulfate 90 mcg/actuation 2 puff INHALATION Q6H PRN 07/22/21 02/07/22 Unknown History aerosol inhaler diclofenac sodium 1 % topical gel 2 g TOPICAL QID PRN 07/22/21 02/07/22 Unknown History promethazine 25 mg tablet 25 mg PO Q8H PRN 07/22/21 02/07/22 Unknown History levothyroxine 100 mcg tablet 137 mcg PO DAILY tab 01/17/22 02/07/22 Unknown History (Euthyrox) meclizine 25 mg tablet 25 mg PO TID PRN 01/17/22 02/07/22 Unknown History tizanidine 2 mg capsule 2 mg PO Q8H PRN 01/17/22 02/07/22 02/06/22 21:00 History amlodipine 10 mg tablet 10 mg PO DAILY #90 tab 01/31/22 02/07/22 02/06/22 09:00 Rx atenolol 25 mg tablet 50 mg PO BID #180 tab 01/31/22 02/07/22 02/06/22 21:00 Rx clonidine HCl 0.1 mg tablet 0.1 mg PO BID PRN 01/31/22 02/07/22 Unknown History hydrochlorothiazide 12.5 mg tablet 12.5 mg PO DAILY #90 tab 01/31/22 02/07/22 Unknown Rx hydralazine 50 mg tablet 50 mg PO TID #180 tab 02/07/22 Unknown Rx nitroglycerin 0.4 mg sublingual 0.4 mg SUBLINGUAL Q5M PRN 02/10/22 02/10/22 Unknown History tablet (Nitrostat) Allergies Allergy/AdvReac Type Severity Reaction Status Date / Time aspartame Allergy Unknown Unknown Verified 01/17/22 14:03 capsaicin Allergy Unknown Unresponsiv Verified 01/17/22 14:03 e lorazepam Allergy Unknown Unknown Verified 01/17/22 14:03 penicillin G Allergy Unknown Unknown Verified 01/17/22 14:03 pentazocine Allergy Unknown Unknown Verified 01/17/22 14:03 ranitidine Allergy Unknown Unknown Verified 01/17/22 14:03 topiramate Allergy Unknown Unknown Verified 01/17/22 14:03 tuberculin, purified protein Allergy Unknown Unknown Verified 01/17/22 14:03 deriva amlodipine AdvReac ADR-Nausea Verified 01/17/22 14:03 metformin AdvReac ADR-Nausea Verified 01/17/22 14:03 sulfamethoxazole AdvReac ADR-Nausea Verified 01/17/22 14:03 [From Sulfamethoxazole-Trimethoprim] trimethoprim AdvReac ADR-Nausea Verified 01/17/22 14:03 [From Sulfamethoxazole-Trimethoprim] pentazocine-naloxone Allergy Unknown Unknown Uncoded 01/17/22 14:03 PFSH Acute PFSH: Medical History Acquired hypothyroidism ED positive Atherosclerosis DDD (degenerative disc disease), lumbar Dyslipidemia Essential (primary) hypertension Facet syndrome Fibromyalgia GERD (gastroesophageal reflux disease) Lumbar spondylolysis Major depressive disorder Osteoarthritis Peripheral edema Restless leg syndrome Situational depression TIA (transient ischemic attack) 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 chronic kidney disease Surgical History (Updated 02/10/22 @ 12:16 by Florida Villegas MD) History of cardiac cath Family History (Updated 02/10/22 @ 12:16 by [place] Villegas MD) Other CAD (coronary artery disease) Social History Smoking and tobacco status: never smoked Vitals/I&O/Wt Last Vital Signs Temp 98.1 F 02/10/22 02:35 Pulse 46 L 02/10/22 08:10 Resp 15 02/10/22 08:10 BP 175/56 02/10/22 08:10 Pulse Ox 94 02/10/22 08:10 Weight last 48 hrs Weight 105.687 kg Physical Exam Narrative: Pleasant cooperative female No active chest pain No active shortness of breath She is hypertensive Currently doing well on room air No active focal deficit No audible stridor or wheezing S1, S2 sinus bradycardia No audible stridor or wheezing Lungs are clear to auscultation Lower extremity without significant edema EOMI, PERRLA Data : 02/10/22 02:40 02/10/22 02:40 A&P Assessment and plan (1) Bradycardia: Status: Acute (2) Angina pectoris without myocardial infarction: Status: Acute (3) Essential (primary) hypertension: Status: Acute (4) 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 Benjamin I have asked Dr. Benjamin to see her today as well Currently her blood pressure is high, I have discontinued clonidine and atenolol, added Nitropaste At this point blood pressure management to control her symptoms Will repeat echo Potassium repleted Chronic kidney disease without acute exacerbation She is full code Cardiac diet Hypothyroid: Continue levothyroxine Check TSH Check magnesium level B12 low normal, Sinus bradycardia, she has been taking atenolol and clonidine, hold for now, Attestations Medical Necessity Statement*: Anticipating discharge within 48 hours will need monitoring for blood pressure and resolution of her chest pain and shortness of breath Time Spent in Patient Care: 40 Coding Level of Care Code Acute Adjunct Instructor Chemistry for Chg Fwd Diagnoses Bradycardia R00.1 Angina pectoris without myocardial infarction I20.9 Essential (primary) hypertension I10 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 chronic kidney disease E11.22; N18.30
--- NOTE | 2022-02-10 08:52 | USCV_ITS ---
Monique Wiley Age: 76 Gender: F : 1945 Exam Date: 02/10/2022 12:15 Ordering Phys: [place] Villegas MD Technologist: Bonifacio Badillo [place] [facility] [place]ication: high blood pressure BP: 186 / 75 HR: 51 Rhythm: Sinus Technical Quality: Adequate MEASUREMENTS (Male / Female) Normal Values 2D ECHO LV Diastolic Diameter PLAX 4.4 cm 4.2 - 5.9 / 3.9 - 5.3 cm LV Systolic Diameter PLAX 3.0 cm IVS Diastolic Thickness 1.7 cm 0.6 - 1.0 / 0.6 - 0.9 cm IVS Systolic Thickness 1.8 cm LVPW Diastolic Thickness 1.5 cm 0.6 - 1.0 / 0.6 - 0.9 cm LVPW Systolic Thickness 1.6 cm LVOT Diameter 2.0 cm LV Ejection Fraction 2D Teich 59.2 % LV Ejection Fraction MOD 2C 66.2 % LV Ejection Fraction 2C AL 65.7 % LA Diameter 3.5 cm M-MODE Aortic Annulus Diameter 3.4 cm LA Ao Ratio MM 1.1 MV E Point Septal Separation 0.6 cm DOPPLER AV Peak Velocity 189.0 cm/s LVOT Peak Velocity 113.0 cm/s AV Area Cont Eq vti 2.8 cm squared AV Area Cont Eq pk 2.0 cm squared MV Area PHT 5.0 cm squared Mitral E to A Ratio 0.7 MV E' Velocity 53.5 cm/s Mitral E to MV E' Ratio 15.7 Mitral E to LV E' Lateral Ratio 12.7 Mitral E to LV E' Septal Ratio 20.6 TR Peak Velocity 220.7 cm/s TR Peak Gradient 19.5 mmHg TV Peak E Velocity 104.0 cm/s Right Atrial Pressure 3.0 mmHg Pulmonary Artery Systolic Pressu 22.5 mmHg PV Peak Velocity 113.0 cm/s FINDINGS Left Ventricle Normal left ventricular size. LV systolic function is normal with EF of 55-60%. No regional wall motion abnormalities. Grade 1 diastolic dysfunction. Moderate left ventricular hypertrophy is seen Right Ventricle The right ventricle is normal in size and function. Right Atrium The right atrium is normal in size. Left Atrium The left atrium is normal in size. Mitral Valve Moderate mitral annular calcification without significant stenosis or prolapse. There is no mitral regurgitation. Aortic Valve Structurally normal aortic valve without significant sclerosis or stenosis. There is trace aortic regurgitation. Tricuspid Valve Structurally normal tricuspid valve without significant stenosis.Trace tricuspid regurgitation. Pulmonary artery systolic pressure is normal. Pulmonic Valve Not well visualized Pericardium Normal pericardium without effusion. Aorta Normal ascending aorta dimension. IVC CONCLUSIONS LV systolic function is normal with EF of 55-60% Grade 1 diastolic dysfunction Trace tricuspid regurgitation Moderate left ventricular hypertrophy is seen Compared to prior echocardiogram from 05/29/2018, no significant changes are seen. Ezequiel Benjamin MD (Electronically Signed) Final Date: 11 February 2022 12:42 S
--- NOTE | 2022-02-10 09:35 | ECG_ITS ---
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 Measurements Intervals [place] Rate: 59 P: 51 [place]: 177 QRS: -5 QRSD: 100 T: 58 QT: 421 QTc: 420 Interpretive Statements SINUS BRADYCARDIA LOW QRS VOLTAGE IN PRECORDIAL LEADS [QRS DEFLECTION < 1.0 mV IN CHEST LEADS] POSSIBLE ANTERIOR MYOCARDIAL INFARCTION , PROBABLY OLD [30 ms Q WAVE IN V3/V4, OR R < 0.2 mV IN V4] Compared to ECG 02/10/2022 05:27:23 Low QRS voltage now present Myocardial infarct finding now present T-wave abnormality no longer present Electronically Signed On 02-11-2022 18:14:31 CDT by Ezequiel Benjamin M.D. [id number]
[2022-02-10 09:37] LABS: Troponin 5 6HR 12.72 ng/L (0-10)
[2022-02-10 09:39] LABS: Magnesium 2.1 mg/dL (1.7-2.3)
[2022-02-10 09:44] LABS: Troponin 5 6HR Delta -2.28 ng/L (0-12)
[2022-02-10 09:56] LABS: Vitamin B12 278 pg/mL (232-1245)
[2022-02-10 10:04] LABS: Thyroid Stimulating Hormone 18.23 uIU/mL (0.27-4.20)
[2022-02-10] MEDS: hyDRALAzine 50 mg Tablet PO ×3 (10:08→19:39)
[2022-02-10] MEDS: pantoprazole DR 40 mg Tablet PO (10:08)
[2022-02-10] MEDS: aspirin 325 mg EC Tablet PO (10:08)
[2022-02-10] MEDS: spironolactone 25 mg Tablet PO (10:08)
[2022-02-10] MEDS: levothyroxine 137 mcg Tablet PO (10:09)
[2022-02-10] MEDS: lisinopril 20 mg Tablet PO ×2 (10:09→17:22)
[2022-02-10] MEDS: enoxaparin 40 mg/0.4 mL Syringe SUBCUT (10:09)
[2022-02-10] MEDS: amlodipine 10 mg Tablet PO (10:09)
[2022-02-10] MEDS: clopidogrel 300 mg Tablet PO (10:09)
--- NOTE | 2022-02-10 10:26 | XRR_ITS ---
PROCEDURE INFORMATION: Exam: XR Right Hip Exam date and time: 02/10/2022 1:10 PM Age: 76 years old Clinical indication: Hip pain; Right hip; Additional info: Right hip pain, portable TECHNIQUE: Imaging protocol: Radiologic exam of the Right hip. Views: 1 view hip with pelvis when performed. COMPARISON: CR Hip 2-3v RIGHT wwo Pelv* [id number] 07/22/2021 12:32 PM FINDINGS: Bones/joints: No acute fracture. Joint space is preserved. Soft tissues: Unremarkable. XR/XR hip RT 2-3V wo/w pel* [id number] IMPRESSION: No acute findings.
--- NOTE | 2022-02-10 10:29 | P.CONIM_ITS ---
Providers/Reason For Consult Consulting Physician/Specialty*: Ezequiel Benjamin MD/ Cardiology Reason for Consult*: Chest pain/ hypertension Requesting Physician: Dr Villegas Attending Physician: [place] Villegas MD Primary Care Provider: Arnoldo Wiley History of Present Illness History of Present Illness Monique Wiley is a 76 year old female with past medical history of hypertension who has presented to the hospital with dizziness, lightheadedness and mild chest discomfort. She had right shoulder pain radiating to jaw. Blood pressure was very high and was 194/74 mmHg. Coronary angiogram was recently done that showed moderate to diagonal artery stenosis. IFR was negative. EKG showed mild ST depressions. Review of Systems Narrative: CONSTITUTIONAL: No fever chills weight loss or gain or night sweats. [] HEENT: Normocephalic, atraumatic.[] RESPIRATORY: No cough, sputum, hemoptysis or wheezing.[] CARDIOVASCULAR: No shortness of breath, chest pain, PND, orthopnea, lower extremity edema, presyncope or syncope. [] GI: no nausea vomiting diarrhea. [] MANAGER CLINICAL INFORMATICS: No numbness, tingling, weakness or loss of function in any part of the b tomy. [] MUSCULOSKELETAL: No knee or joint pain or rashes. [] Medications/Allergies Home Medications Medication Instructions Recorded Confirmed Last Taken Type acetaminophen 500 mg tablet 500 mg PO Q6H PRN 02/27/21 02/10/22 Unknown History (Tylenol Extra Strength) alendronate 70 mg tablet (Fosamax) 70 mg PO Q7D tab 02/27/21 02/10/22 02/04/22 History cholecalciferol (vitamin D3) 1,250 1,250 mcg PO Q7D tab 02/27/21 02/10/22 02/04/22 History mcg (50,000 unit) tablet furosemide 20 mg tablet 20 mg PO BID 02/27/21 02/10/22 02/06/22 21:00 History hydrocodone 10 mg-acetaminophen 1 tab PO BID PRN 02/27/21 02/10/22 Unknown History 325 mg tablet lisinopril 20 mg tablet 20 mg PO BID 02/27/21 02/10/22 02/06/22 21:00 History mupirocin 2 % topical ointment 1 applic TOPICAL DAILY g 02/27/21 02/10/22 Unknown History pantoprazole 40 mg tablet,delayed 40 mg PO DAILY 02/27/21 02/10/22 02/06/22 2 1:00 History release (Protonix) potassium chloride 10 mEq 10 meq PO DAILY 02/27/21 02/10/22 02/06/22 09:00 History capsule,extended release pramipexole 0.75 mg tablet 0.75 mg PO DAILY 02/27/21 02/10/22 02/06/22 21:00 History (Mirapex) trazodone 50 mg tablet 50 - 100 mg PO BEDTIME 02/27/21 02/10/22 02/06/22 21:00 History albuterol sulfate 90 mcg/actuation 2 puff INHALATION Q6H PRN 07/22/21 02/10/22 Unknown History aerosol inhaler diclofenac sodium 1 % topical gel 2 g TOPICAL QID PRN 07/22/21 02/10/22 Unknown History promethazine 25 mg tablet 25 mg PO Q8H PRN 07/22/21 02/10/22 Unknown History levothyroxine 100 mcg tablet 137 mcg PO DAILY tab 01/17/22 02/10/22 Unknown History (Euthyrox) meclizine 25 mg tablet 25 mg PO TID PRN 01/17/22 02/10/22 Unknown History tizanidine 2 mg capsule 2 mg PO Q8H PRN 01/17/22 02/10/22 02/06/22 21:00 History amlodipine 10 mg tablet 10 mg PO DAILY #90 tab 01/31/22 02/10/22 02/06/22 09:00 Rx atenolol 25 mg tablet 50 mg PO BID #180 tab 01/31/22 02/10/22 02/06/22 21:00 Rx clonidine HCl 0.1 mg tablet 0.1 mg PO BID PRN 01/31/22 02/10/22 Unknown History hydrochlorothiazide 12.5 mg tablet 12.5 mg PO DAILY #90 tab 01/31/22 02/10/22 Unknown Rx hydralazine 50 mg tablet 50 mg PO TID #180 tab 02/07/22 02/10/22 Unknown Rx nitroglycerin 0.4 mg sublingual 0.4 mg SUBLINGUAL Q5M PRN 02/10/22 02/10/22 Unknown History tablet (Nitrostat) Allergies Allergy/AdvReac Type Severity Reaction Status Date / Time aspartame Allergy Unknown Unknown Verified 01/17/22 14:03 capsaicin Allergy Unknown Unresponsiv Verified 01/17/22 14:03 e lorazepam Allergy Unknown Unknown Verified 01/17/22 14:03 penicillin G Allergy Unknown Unknown Verified 01/17/22 14:03 pentazocine Allergy Unknown Unknown Verified 01/17/22 14:03 ranitidine Allergy Unknown Unknown Verified 01/17/22 14:03 topiramate Allergy Unknown Unknown Verified 01/17/22 14:03 tuberculin, purified protein Allergy Unknown Unknown Verified 01/17/22 14:03 deriva amlodipine AdvReac ADR-Nausea Verified 01/17/22 14:03 metformin AdvReac ADR-Nausea Verified 01/17/22 14:03 sulfamethoxazole AdvReac ADR-Nausea Verified 01/17/22 14:03 [From Sulfamethoxazole-Trimethoprim] trimethoprim AdvReac ADR-Nausea Verified 01/17/22 14:03 [From Sulfamethoxazole-Trimethoprim] pentazocine-naloxone Allergy Unknown Unknown Uncoded 01/17/22 14:03 Current Medications Generic Name Dose Route Start Last Admin Trade Name Freq PRN Reason Stop Dose Admin Amlodipine Besylate 10 mg 02/10/22 09:00 02/10/22 10:09 Amlodipine 10 Mg Tablet PO 10 mg DAILY ABILIO Administration Enoxaparin Sodium 40 mg 02/10/22 09:00 02/10/22 10:09 Enoxaparin 40 Mg/0.4 Ml Syringe SUBCUT 40 mg Q24H ABILIO Administration Hydralazine HCl 50 mg 02/10/22 09:00 02/10/22 10:08 Hydralazine 50 Mg Tablet PO 50 mg TID ABILIO Administration Levothyroxine Sodium 137 mcg 02/10/22 09:00 02/10/22 10:09 Levothyroxine 137 Mcg Tablet PO 137 mcg DAILY ABILIO Administration Lisinopril 20 mg 02/10/22 09:00 02/10/22 10:09 Lisinopril 20 Mg Tablet PO 20 mg BID ABILIO Administration Pantoprazole Sodium 40 mg 02/10/22 09:00 02/10/22 10:[address] 40 Mg Tablet PO 40 mg DAILY ABILIO Administration Spironolactone 25 mg 02/10/22 09:00 02/10/22 10:08 Spironolactone 25 Mg Tablet PO 25 mg DAILY ABILIO Administration PFSH Acute PFSH: Medical History Acquired hypothyroidism ED positive Atherosclerosis DDD (degenerative disc disease), lumbar Dyslipidemia Essential (primary) hypertension Facet syndrome Fibromyalgia GERD (gastroesophageal reflux disease) Lumbar spondylolysis Major depressive disorder Osteoarthritis Peripheral edema Restless leg syndrome Situational depression TIA (transient ischemic attack) 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 chronic kidney disease Surgical History History of cardiac cath Family History Other CAD (coronary artery disease) Social History Smoking and tobacco status: never smoked Vitals/I&O/Wt Last Vital Signs Temp 98.1 F 02/10/22 02:35 Pulse 58 L 02/10/22 09:09 Resp 16 02/10/22 09:09 BP 175/56 02/10/22 08:10 Pulse Ox 95 02/10/22 09:09 Weight last 48 hrs Weight 233 lb Physical Exam Narrative: GENERAL: Patient is alert, awake and oriented x3. [] NECK: No jugular vein distension. [] HEENT: No cyanosis. No icterus. No pallor. [] HEART: Regular S1 and S2. No murmur, rub or gallop. [] LUNGS: Clear to auscultate bilaterally. [] ABDOMEN: Soft, nontender and nondistended. Positive bowel sounds. No guarding, rebound or tenderness. [] CENTRAL NERVOUS SYSTEM: Grossly nonfocal. [] EXTREMITIES: Lower extremities with no edema Data : 02/11/22 04:07 02/12/22 03:49 A&P Assessment and plan (1) Chest pain: Status: Acute (2) Essential (primary) hypertension: Status: Acute (3) 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 chronic kidney disease: Status: Acute Plan Patient's chest pain is secondary to hypertensive urgency. No significant CAD seen on coronary angiogram last week. Moderate diagonal artery stenosis was evaluated with IFR that was negative. Uptitrate antihypertensive regimen. Low-sodium diet strongly advised. Order echocardiogram Thank you for involving us with care of this patient. We will continue to follow. Please call with questions. 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
[2022-02-10] MEDS: nitroglycerin 1 gm/inch oint Pkt 0.5 INCH TOPICAL ×3 (13:24→23:55)
[2022-02-10] MEDS: potassium chloride ER 20 mEq Tablet 40 MEQ PO (13:24)
[2022-02-10 14:03] LABS: Cortisol Random 14.47 ug/dL (2.47-19.5)
[2022-02-10 15:43] LABS: Free T4 Free Thyroxine 0.88 ng/dL (0.82-1.77)
[2022-02-10] MEDS: acetaminophen 500 mg Tablet PO (19:38)
[2022-02-10] MEDS: atorvastatin 40 mg Tablet PO (19:39)
[2022-02-10] MEDS: pramipexole 0.25 mg Tablet 0.75 MG PO (19:39)
[2022-02-10] MEDS: trazodone 50 mg Tablet 25 MG PO (19:39)
[2022-02-11] VITALS (12 sets, daily range): BP systolic 127–176; BP diastolic 46–69; PULSE 61–80; RESP 16–21; TEMP 36.5–36.9; O2SAT 92–94
[2022-02-11] MEDS: ondansetron 2 mg/ML SDV 2 mL 4 MG IVP (02:03)
[2022-02-11] MEDS: acetaminophen 500 mg Tablet PO ×4 (03:51→22:46)
[2022-02-11] MEDS: nitroglycerin 1 gm/inch oint Pkt 0.5 INCH TOPICAL (03:53)
[2022-02-11 04:19] LABS: Basophils % 0.2 %; Eosinophils # 0.2 10^3/uL (0.0-0.8); Eosinophils % 2.3 %; Hematocrit 39.2 % (37.0-47.0); Hemoglobin 12.7 g/dL (11.5-15.3); Lymphocytes # 3.3 10^3/uL (0.8-4.8); Lymphocytes % 36.6 %; Mean Corpuscular HGB Conc 32.4 g/dL (30.0-36.0); Mean Corpuscular Hemoglobin 27.5 pg (28.0-34.0); Mean Platelet Volume 11.9 fL (7.4-10.4); Monocytes # 0.6 10^3/uL (0.2-0.9); Monocytes % 7.1 %; Neutrophils # 4.75 10^3/uL (1.8-7.7); Neutrophils % 53.6 %; Nucleated Red Blood Cells % 0 %; Platelet Count 246 10^3/cmm (130-400); Red Blood Count 4.61 10^6/uL (4.1-5.3); Red Cell Distribution Width 14.9 % (12.1-15.1); White Blood Count 8.9 10^3/uL (4.0-10.0)
[2022-02-11 04:34] LABS: Anion Gap 12.4 (5-19); Blood Urea Nitrogen 13 mg/dL (8-23); Calcium 9.6 mg/dL (8.5-10.5); Carbon Dioxide 27 mmol/L (22-29); Chloride 106 mmol/L (98-107); Glucose 147 mg/dL (65-115); Osmolality Calculated 295 mOsm/kg (285-295); Potassium 4.4 mmol/L (3.5-5.1); Sodium 141 mmol/L (136-145)
[2022-02-11] MEDS: spironolactone 25 mg Tablet PO (08:05)
[2022-02-11] MEDS: chlorthalidone 25 mg Tablet PO (08:05)
[2022-02-11] MEDS: levothyroxine 137 mcg Tablet PO (08:05)
[2022-02-11] MEDS: aspirin 81 mg EC Tablet PO (08:05)
[2022-02-11] MEDS: lisinopril 20 mg Tablet PO ×2 (08:06→17:48)
[2022-02-11] MEDS: amlodipine 10 mg Tablet PO (08:06)
[2022-02-11] MEDS: clopidogrel 75 mg Tablet PO (08:06)
[2022-02-11] MEDS: pantoprazole DR 40 mg Tablet PO (08:06)
[2022-02-11] MEDS: enoxaparin 40 mg/0.4 mL Syringe SUBCUT (08:06)
[2022-02-11] MEDS: hyDRALAzine 50 mg Tablet PO (08:06)
[2022-02-11] MEDS: TRAMadol 50 mg Tablet PO ×3 (09:39→20:46)
[2022-02-11] MEDS: isosorbide mononitrate ER 60 mg Tablet PO (09:39)
--- NOTE | 2022-02-11 10:20 | PM.PN ---
Subjective Subjective: Patient blood pressure has been ranging high No active chest pain or shortness of breath As per the nursing staff she gets get dizzy on initial movement however with rest she gets better She is on room air Today I have added chlorthalidone 25 mg and increase the dose of hydralazine to 100 mg 3 times a day I have discontinued Nitropaste added Imdur 60 mg daily Vitals/I&O/Wt Last Vital Signs Temp 98.4 F 02/11/22 08:00 Pulse 62 02/11/22 09:00 Resp 18 02/11/22 09:00 BP 165/69 02/11/22 08:00 Pulse Ox 94 02/11/22 09:00 02/10/22 02/11/22 02/11/22 22:59 06:59 14:59 Intake Total 120 / 360 240 / 240 Balance 120 / 360 240 / 240 Weight last 48 hrs Weight 105.687 kg Physical Exam Narrative: Patient is awake and alert Pleasant and cooperative Doing well on room air Hypertensive Abdomen soft Nonfocal neuro exam No active chest pain No acute shortness of breath Patient looks euvolemic Data : 02/11/22 04:07 02/11/22 04:07 A&P Assessment and plan (1) Chest pain: Status: Acute (2) Angina pectoris without myocardial infarction: Status: Acute (3) Bradycardia: Status: Acute (4) Murmur: Status: Acute (5) 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 chronic kidney disease: Status: Acute (6) Essential (primary) hypertension: Status: Acute Plan Hypertensive urgency Recent coronary angiogram did not show significant atherosclerosis Patient is being managed medically I have added chlorthalidone, Imdur, increase the dose of hydralazine, continue spironolactone and lisinopril along amlodipine Renin levels are pending Will follow with renal duplex scan Secondary hypertension work-up is pending Bradycardia: Sinus bradycardia, concern for sleep apnea, will do overnight pulse ox study Discontinued atenolol and clonidine DVT prophylaxis on board Currently on cardiac diet Continue levothyroxine, abnormal TSH, will adjust the dose of levothyroxine at the time of discharge Hip pain, no signs of active fracture, I would give her tramadol for as needed use Plan to discharge her tomorrow Attestations Medical Necessity Statement*: Discharge tomorrow Time Spent in Patient Care: 30 Coding Level of Care Code 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
--- NOTE | 2022-02-11 12:25 | USCV_ITS ---
Monique Wiley Age: 76 Gender: F : 1945 Exam Date: 02/11/2022 07:26 Ordering Phys: [place] Villegas MD Technologist: Bonifacio Badillo Exam Location: [facility] [place] Indication: HTN Aortic Velocity @ SMA (cm/s) 111 RIGHT KIDNEY LEFT KIDNEY Velocity (cm/s) Velocity (cm/s) Sys/Perez Sys/Perez Resistive Index Resistive Index 45.0 / 8.1 0.82 Proximal Renal Artery 71.7 / 13.4 0.81 42.4 / 11.1 0.74 Mid Renal Artery 81.4 / 11.9 0.85 45.0 / 26.2 0.42 Distal Renal Artery 64.2 / 14.9 0.77 35.4 / 6.6 0.81 Hilar 50.0 / 14.2 0.72 31.7 / 8.1 0.74 Upper Pole 41.9 / 9.8 0.77 36.1 / 8.9 0.76 Mid Pole 43.7 / 9.2 0.79 29.5 / 5.2 0.83 Lower Pole 51.7 / 8.6 0.83 0.40 Renal Aortic Ratio 0.74 Accleration Index (cm/sec2) 486.00 Hilar 1627.0 0 424.00 Upper Pole 621.00 642.00 Mid Pole 823.00 552.00 Lower Pole 649.00 112.4 Kidney Length (mm) 102.7 CONCLUSIONS Right kidney measures 11.2 cm and Left measures 10.2cm pole to pole No sonographic evidence of hemodynamically significant renal artery stenosis bilaterally. No hydronephrosis Rolly Clinton MD (Electronically Signed) Final Date: 11 February 2022 09:25 S
[2022-02-11] MEDS: hyDRALAzine 50 mg Tablet 100 MG PO ×2 (15:09→20:45)
--- NOTE | 2022-02-11 18:27 | PM.PN ---
Subjective Subjective: Blood pressure has improved today. Denies chest pain Vitals/I&O/Wt Last Vital Signs Temp 97.7 F 02/11/22 15:23 Pulse 68 02/11/22 15:23 Resp 21 H 02/11/22 15:23 BP 164/66 02/11/22 15:23 Pulse Ox 93 02/11/22 15:23 02/11/22 02/11/22 02/11/22 06:59 14:59 22:59 Intake Total 480 / 480 120 / 600 Balance 480 / 480 120 / 600 Weight last 48 hrs Weight 233 lb Physical Exam Narrative: GENERAL: Patient is alert, awake and oriented x3. [] NECK: No jugular vein distension. [] HEENT: No cyanosis. No icterus. No pallor. [] HEART: Regular S1 and S2. No murmur, rub or gallop. [] LUNGS: Clear to auscultate bilaterally. [] ABDOMEN: Soft, nontender and nondistended. Positive bowel sounds. No guarding, rebound or tenderness. [] CENTRAL NERVOUS SYSTEM: Grossly nonfocal. [] EXTREMITIES: Lower extremities with no edema Data : 02/11/22 04:07 02/12/22 03:49 A&P Assessment and plan (1) Chest pain: Status: Acute (2) Essential (primary) hypertension: Status: Acute (3) 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 chronic kidney disease: Status: Acute Plan Patient's blood pressure is better controlled now. Her chest pain has resolved. Uptitrate antihypertensive regimen. Low-sodium diet strongly advised. Echocardiogram showed normal LV systolic function and grade 1 diastolic dysfunction. Thank you for involving us with care of this patient. We will continue to follow. Please call with questions. 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
[2022-02-11] MEDS: trazodone 50 mg Tablet 25 MG PO (20:45)
[2022-02-11] MEDS: pramipexole 0.25 mg Tablet 0.75 MG PO (20:46)
[2022-02-11] MEDS: atorvastatin 40 mg Tablet PO (20:46)
[2022-02-12] VITALS (7 sets, daily range): BP systolic 124–153; BP diastolic 48–69; PULSE 59–81; RESP 16–17; TEMP 36.6–36.7; O2SAT 90–97
[2022-02-12] MEDS: ondansetron 2 mg/ML SDV 2 mL 4 MG IVP (00:22)
--- NOTE | 2022-02-12 03:46 | PC.NURSE ---
Patient up to bathroom at this time. Patient reports feeling severely nauseous. Zofran was given earlier as ordered and documented without any relief. Informed Dr Wright. Doctor placed new order.
[2022-02-12] MEDS: diphenhydrAMINE 50 mg/mL SDV 1mL 25 MG IVP (03:50)
[2022-02-12] MEDS: metoclopramide 5 mg/mL SDV 2 mL IVP (03:50)
[2022-02-12 04:26] LABS: Blood Urea Nitrogen 13 mg/dL (8-23); Calcium 9.7 mg/dL (8.5-10.5); Carbon Dioxide 27 mmol/L (22-29); Chloride 102 mmol/L (98-107); Glucose 119 mg/dL (65-115); Osmolality Calculated 287 mOsm/kg (285-295); Sodium 138 mmol/L (136-145)
[2022-02-12 04:28] LABS: Anion Gap 13.1 (5-19); Potassium 4.1 mmol/L (3.5-5.1)
[2022-02-12] MEDS: levothyroxine 150 mcg Tablet PO (05:08)
[2022-02-12] MEDS: TRAMadol 50 mg Tablet PO (05:08)
[2022-02-12] MEDS: chlorthalidone 25 mg Tablet PO (08:13)
[2022-02-12] MEDS: lisinopril 20 mg Tablet PO (08:13)
[2022-02-12] MEDS: spironolactone 25 mg Tablet PO (08:13)
[2022-02-12] MEDS: clopidogrel 75 mg Tablet PO (08:13)
[2022-02-12] MEDS: aspirin 81 mg EC Tablet PO (08:13)
[2022-02-12] MEDS: enoxaparin 40 mg/0.4 mL Syringe SUBCUT (08:13)
[2022-02-12] MEDS: isosorbide mononitrate ER 60 mg Tablet PO (08:13)
[2022-02-12] MEDS: amlodipine 10 mg Tablet PO (08:13)
[2022-02-12] MEDS: pantoprazole DR 40 mg Tablet PO (08:13)
[2022-02-12] MEDS: hyDRALAzine 50 mg Tablet 100 MG PO (08:24)
--- NOTE | 2022-02-12 09:57 | P.PN_ITS ---
Subjective Subjective: Patient is doing well. No complaints of chest pain. Blood pressure is better controlled Vitals/I&O/Wt Last Vital Signs Temp 98.0 F 02/12/22 07:44 Pulse 67 02/12/22 08:00 Resp 16 02/12/22 08:00 BP 142/61 02/12/22 07:44 Pulse Ox 94 02/12/22 08:00 02/11/22 02/12/22 02/12/22 22:59 06:59 14:59 Intake Total 480 / 960 Balance 480 / 960 Physical Exam Narrative: GENERAL: Patient is alert, awake and oriented x3. [] NECK: No jugular vein distension. [] HEENT: No cyanosis. No icterus. No pallor. [] HEART: Regular S1 and S2. No murmur, rub or gallop. [] LUNGS: Clear to auscultate bilaterally. [] ABDOMEN: Soft, nontender and nondistended. Positive bowel sounds. No guarding, rebound or tenderness. [] CENTRAL NERVOUS SYSTEM: Grossly nonfocal. [] EXTREMITIES: Lower extremities with no edema Data : 02/11/22 04:07 02/12/22 03:49 A&P Assessment and plan (1) Chest pain: (2) Essential (primary) hypertension: Status: Acute (3) 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 chronic kidney disease: Plan Blood pressure is better controlled on multiple antihypertensive medications. Continue. Will need close monitoring of blood pressure at home and will send us log of blood pressures for adjustment of medications Echocardiogram showed normal LV systolic function and grade 1 diastolic dysfunction. Thank you for involving us with care of this patient. Patient is stable to be discharged from cardiology standpoint. Please call with questions. Attestations Medical Necessity Statement*: Care expected to cross 2 midnights. 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
--- NOTE | 2022-02-12 11:16 | PM.DCS ---
Discharge Providers Date of Admission: 02/10/22 05:51 Date of Discharge: February 12, 2022 Attending Provider at Admission: Beth Gregorio MD Attending Provider at Discharge: [place] Villegas MD Primary Care Provider: Arnoldo Wiley Diagnoses at Discharge Discharge Diagnosis (1) Chest pain: Status: Acute (2) Essential (primary) hypertension: Status: Acute (3) 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 chronic kidney disease: Status: Acute Reason for Visit Reason for Visit: CP Hospital Course Hospital Course 76-year female who was seen by Dr. Rodriguez after her positive cardiac stress test, coronary angiogram showed less than 70% stenosis of diagonal artery. She was managed medically because her IFR was negative. She was admitted to the hospital for chief complaint of worsening shortness of breath and right-sided chest discomfort which was radiating towards her left shoulder and jaw. She was managed medically for her symptoms. Likely etiology was hypertensive urgency. I discontinued her Lasix, increase the dose of hydralazine 100 mg 3 times daily, added Imdur 60 mg daily and chlorthalidone. Her blood pressure gradually improved at the time of discharge her systolic blood pressures are 140 mmHg and diastolic is around 60 dermatologically. Patient symptoms have improved she is endorsing feeling better and agreeable to go home with her daughter. Echo shows diastolic dysfunction, overnight pulse ox study did not qualify for sleep apnea however she was bradycardic on day of admission which was secondary to clonidine and atenolol. I have discontinued those 2 medications. Her heart rate has stayed above 60s. She does experience bradycardia at the time of sleep. Her overnight pulse oximetry study only showed 1 reading when her pulse ox showed O2 saturation between 80-89. I have increased the dose of levothyroxine, her TSH was high I have increased her levothyroxine dose of 250 mcg. She can continue spironolactone and lisinopril. For secondary hypertension I did request renin aldosterone level, renal duplex study did not show any renal artery stenosis. Physical Exam Narrative: Patient is awake and alert Pleasant and cooperative Doing well on room air Hypertensive Abdomen soft Nonfocal neuro exam No active chest pain No acute shortness of breath Patient looks euvolemic Discharge Data Studies Completed and Pending Completed Studies During Hospitalization Category Date Time Status XR chest 1V portable [id number] Stat Exams 02/10/22 03:35 Completed XR hip RT 2-3V wo/w pel* [id number] Routine Exams 02/10/22 10:26 Completed CV renal doppler [id number] Routine Ultrasound 02/11/22 12:25 Completed CV. echo complete* [id number] Routine Ultrasound 02/10/22 08:52 Completed Pending at discharge Category Date Time Status Sestamibi Stress Test Request Routine Exams 02/10/22 08:52 Stop Req RENIN [Plasma Renin Activity LC/MS/MS] Routine Lab 02/10/22 08:59 Received Radiology Impressions Chest X-Ray 02/10/22 03:35 IMPRESSION: Mild left basilar atelectasis. No confluent infiltrates in the lungs. Hip/Pelvis X-Ray 02/10/22 10:26 IMPRESSION: No acute findings. Laboratory Results WBC 8.9 10^3/uL (4.0-10.0) 02/11/22 04:07 RBC 4.61 10^6/uL (4.1-5.3) 02/11/22 04:07 Hgb 12.7 g/dL (11.5-15.3) 02/11/22 04:07 Hct 39.2 % (37.0-47.0) 02/11/22 04:07 MCV 85.0 fl (81-99) 02/11/22 04:07 MCH 27.5 pg (28.0-34.0) L 02/11/22 04:07 MCHC 32.4 g/dL (30.0-36.0) 02/11/22 04:07 RDW 14.9 % (12.1-15.1) 02/11/22 04:07 Plt Count 246 10^3/cmm (130-400) 02/11/22 04:07 MPV 11.9 fL (7.4-10.4) H 02/11/22 04:07 Neut % (Auto) 53.6 % 02/11/22 04:07 Lymph % (Auto) 36.6 % 02/11/22 04:07 Moffat % (Auto) 7.1 % 02/11/22 04:07 Eos % (Auto) 2.3 % 02/11/22 04:07 Baso % (Auto) 0.2 % 02/11/22 04:07 Neut # (Auto) 4.75 10^3/uL (1.8-7.7) 02/11/22 04:07 Lymph # (Auto) 3.3 10^3/uL (0.8-4.8) 02/11/22 04:07 Moffat # (Auto) 0.6 10^3/uL (0.2-0.9) 02/11/22 04:07 Eos # (Auto) 0.2 10^3/uL (0.0-0.8) 02/11/22 04:07 Baso # (Auto) 0.0 10^3/uL (0.0-0.1) 02/11/22 04:07 Nucleated RBC % (auto) 0 % 02/11/22 04:07 Nucleated RBCs # 0.0 /100WBC 02/11/22 04:07 Sodium 138 mmol/L (136-145) 02/12/22 03:49 Potassium 4.1 mmol/L (3.5-5.1) 02/12/22 03:49 Chloride 102 mmol/L (98-107) 02/12/22 03:49 Carbon Dioxide 27 mmol/L (22-29) 02/12/22 03:49 Anion Gap 13.1 (5-19) 02/12/22 03:49 BUN 13 mg/dL (8-23) 02/12/22 03:49 Creatinine 1.0 mg/dL (0.5-0.9) H 02/12/22 03:49 GFR Calculation Not Reportable 02/12/22 03:49 Glucose 119 mg/dL (65-115) H 02/12/22 03:49 Calculated Osmolality 287 mOsm/kg (285-295) 02/12/22 03:49 Calcium 9.7 mg/dL (8.5-10.5) 02/12/22 03:49 Magnesium 2.1 mg/dL (1.7-2.3) 02/10/22 08:59 Total Bilirubin 0.2 mg/dL (0.15-1.2) 02/10/22 02:40 AST 13 U/L (0-32) 02/10/22 02:40 ALT 9 U/L (0-33) 02/10/22 02:40 Alkaline Phosphatase 115 IU/L (35-105) H 02/10/22 02:40 Creatine Kinase 32 U/L (26-192) 02/10/22 02:40 Troponin T Baseline 15 ng/L (0-10) H 02/10/22 02:40 Troponin T 120 Minute 11.18 ng/L (0-10) H 02/10/22 05:06 Delta Troponin T -3.82 ABS# (0-10) L 02/10/22 05:06 Troponin T Hi Sens 6Hr 12.72 ng/L (0-10) H 02/10/22 08:59 Troponin T Hi Sens 6Hr Delta -2.28 ng/L (0-12) L 02/10/22 08:59 NT-Pro-B Natriuret Pep 306 pg/mL (0-125) H 02/10/22 02:40 Total Protein 6.9 g/dL (6.6-8.7) 02/10/22 02:40 Albumin 3.9 g/dL (3.5-5.2) 02/10/22 02:40 Globulin 3.0 g/dL (1.3-4.6) 02/10/22 02:40 Vitamin B12 278 pg/mL (232-1245) 02/10/22 08:59 TSH 18.23 uIU/mL (0.27-4.20) H 02/10/22 08:59 Free T4 0.88 ng/dL (0.82-1.77) 02/10/22 08:59 Random Cortisol 14.47 ug/dL (2.47-19.5) 02/10/22 08:59 Vitals Last Vital Signs Temp 98.0 F 02/12/22 07:44 Pulse 67 02/12/22 08:00 Resp 16 02/12/22 08:00 BP 142/61 02/12/22 07:44 Pulse Ox 94 02/12/22 08:00 Discharge Plan Discharge Patient Disposition: Home Condition: Stable Prescriptions: New lisinopril 20 mg Tablet 20 mg PO BID Qty: 60 2RF chlorthalidone 25 mg Tablet 25 mg PO DAILY Qty: 60 4RF spironolactone 25 mg Tablet 25 mg PO DAILY Qty: 60 3RF isosorbide mononitrate 60 mg Tablet Extended Release 24 Hr 60 mg PO DAILY Qty: 120 4RF levothyroxine 150 mcg Tablet 150 mcg PO QAM Qty: 90 3RF hydralazine 50 mg Tablet 100 mg PO TID Qty: 120 3RF Continued tizanidine 2 mg capsule 2 mg PO Q8H PRN (Reason: Muscle Spasm) 0RF hydrocodone-acetaminophen 10-325 mg tablet 1 tab PO BID PRN (Reason: Pain) 0RF acetaminophen [Tylenol Extra Strength] 500 mg tablet 500 mg PO Q6H PRN (Reason: Pain) 0RF alendronate [Fosamax] 70 mg tablet 70 mg PO Q7D 0RF Rx Instructions: ON MONDAYS cholecalciferol (vitamin D3) 1,250 mcg (50,000 unit) tablet 1,250 mcg PO Q7D 0RF Rx Instructions: ON MONDAYS lisinopril 20 mg tablet 20 mg PO BID 0RF mupirocin 2 % ointment 1 applic topical DAILY 0RF pantoprazole [Protonix] 40 mg tablet,delayed release (DR/EC) 40 mg PO DAILY 0RF pramipexole [Mirapex] 0.75 mg tablet 0.75 mg PO DAILY 0RF trazodone 50 mg tablet 50 - 100 mg PO BEDTIME 0RF amlodipine 10 mg tablet 10 mg PO DAILY Qty: 90 3RF promethazine 25 mg tablet 25 mg PO Q8H PRN (Reason: Nausea) 0RF albuterol sulfate 90 mcg/actuation Hfa Aerosol Inhaler 2 puff INHALATION Q6H PRN (Reason: Shortness Of Breath) 0RF Euthyrox 100 mcg tablet 137 mcg PO DAILY 0RF Nitrostat 0.4 mg Tablet, Sublingual 0.4 mg SUBLINGUAL Q5M PRN (Reason: Chest Pain) 0RF Rx Instructions: do not exceed 3 doses per episode Discontinued meclizine 25 mg tablet 25 mg PO TID PRN (Reason: dizziness) 0RF furosemide 20 mg tablet 20 mg PO BID 0RF potassium chloride 10 mEq capsule, extended release 10 meq PO DAILY 0RF hydrochlorothiazide 12.5 mg tablet 12.5 mg PO DAILY Qty: 90 3RF clonidine HCl 0.1 mg tablet 0.1 mg PO BID PRN (Reason: hypertensive emergency) 0RF Rx Instructions: Take one tab 2 times daily if systolic >200 atenolol 25 mg tablet 50 mg PO BID Qty: 180 3RF diclofenac sodium 1 % Gel 2 g TOPICAL QID PRN (Reason: Pain) 0RF hydralazine 50 mg tablet 50 mg PO TID Qty: 180 1RF Discharge Orders: Discharge Order (Routine); Ordered 02/12/22 Ordered By: [place] Villegas Patient Instructions: Opioid Safety Discharge Attestations Time Spent in Discharge Care*: less than 30 min Quality Metrics Clinical Quality Measures [ No reported AMI, CVA or VTE this stay] Coding Level of Care Code Acute Chg FW DC note Diagnoses Chest pain R07.9 Essential (primary) hypertension I10 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 chronic kidney disease E11.22; N18.30
--- NOTE | 2022-02-12 14:15 | PC.NURSE ---
Discharge Note Patient discharged to home via wheelchair accompanied by daughter. Discharge instructions reviewed with patient and/or community representative. Mobile pharmacy medications and/or prescriptions provided. Belongings/home medications returned.
== END 2022-02-12 14:16 | disposition home or self-care (01) ==
LOC: ER 05:19 → MEDSURG 07:31
PROVIDERS: Admitting Provider Student in an Organized Health Care Education/Training Program; Emergency Provider Emergency Medicine; PCP Family Medicine; Visit Provider Internal Medicine
DX: R07.9 Chest pain, unspecified (principal); E11.22 Type 2 diabetes mellitus with diabetic chronic kidney disease; I12.9 Hypertensive chronic kidney disease with stage 1 through stage 4 chronic kidney disease, or unspecified chronic kidney disease; N18.30 Chronic kidney disease, stage 3 unspecified; I20.9 Angina pectoris, unspecified; R00.1 Bradycardia, unspecified; R01.1 Cardiac murmur, unspecified; E03.9 Hypothyroidism, unspecified; M79.7 Fibromyalgia; M19.90 Unspecified osteoarthritis, unspecified site; Z86.73 Personal history of transient ischemic attack (TIA), and cerebral infarction without residual deficits; E78.5 Hyperlipidemia, unspecified; F32.9 Major depressive disorder, single episode, unspecified; M25.551 Pain in right hip; Z82.49 Family history of ischemic heart disease and other diseases of the circulatory system
CPT/HCPCS: 36415; 71045; 73502; 80048; 80053; 82533; 82550; 82607; 83735; 83880; 84244; 84439; 84443; 84484; 85025; 93005; 93306; 93975; 94762; 96372; 96374; 96375; 96376; 99285; G0378; J1200; J1650; J2405; J2765; J3010

== ENCOUNTER → 2022-02-14 09:32 | Outpatient (BNVA) | payer MEDICARE, OTHER, SELFPAY | PROVIDERS: PCP Family Medicine; Visit Provider Nurse Practitioner Family | DX: I12.9 Hypertensive chronic kidney disease with stage 1 through stage 4 chronic kidney disease, or unspecified chronic kidney disease (principal); E11.22 Type 2 diabetes mellitus with diabetic chronic kidney disease; N18.30 Chronic kidney disease, stage 3 unspecified; Z79.84 Long term (current) use of oral hypoglycemic drugs | CPT/HCPCS: 99213; 99214 ==

== ENCOUNTER 2022-08-27 15:17 | Emergency (ER) | payer MEDICARE, OTHER, SELFPAY ==
[2022-08-27] VITALS (26 sets, daily range): BP systolic 134–179; BP diastolic 72–102; PULSE 72–97; RESP 13–32; TEMP 36.5; O2SAT 93–99; BMI 38.2
--- NOTE | 2022-08-27 15:18 | XRR_ITS ---
PROCEDURE INFORMATION: Exam: XR Chest Exam date and time: 08/27/2022 3:42 PM Age: 77 years old Clinical indication: Other: Dizziness; Additional info: Chest pain TECHNIQUE: Imaging protocol: Radiologic exam of the chest. Views: 1 view. COMPARISON: CR XR chest 1V portable [id number] 02/10/2022 3:46 AM FINDINGS: Lungs: Unremarkable. No consolidation. Pleural spaces: Unremarkable. No pleural effusion. No pneumothorax. Heart/Mediastinum: Unremarkable. No cardiomegaly. Bones/joints: Unremarkable. XR/XR chest 1V portable [id number] IMPRESSION: No acute findings.
--- NOTE | 2022-08-27 15:29 | ECG_ITS ---
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 Measurements Intervals [place] Rate: 89 P: 52 MS: 170 QRS: -29 QRSD: 87 T: 73 QT: 380 QTc: 464 Interpretive Statements SINUS RHYTHM POSSIBLE LEFT ATRIAL ENLARGEMENT [-0.1mV P-WAVE IN V1/V2] LOW QRS VOLTAGE IN PRECORDIAL LEADS [QRS DEFLECTION < 1.0 mV IN CHEST LEADS] ANTEROSEPTAL MYOCARDIAL INFARCTION , OF INDETERMINATE AGE [40+ ms Q WAVE IN V1-V4] Compared to ECG 02/10/2022 09:56:50 Sinus bradycardia no longer present Myocardial infarct finding still present Electronically Signed On 08-27-2022 16:02:26 MATHEMATICAL PHYSICIST by Bee Rios M.D. [id number]
--- NOTE | 2022-08-27 15:34 | W.ED.CHESTPA ---
HPI - Chest Pain General: Chief Complaint: Chest Pain Stated Complaint: CHEST PAIN Time Seen by Provider: 08/27/22 15:18 Source: patient Mode of arrival: ambulatory History of Present Illness: 77-year-old female presents emergency room via EMS from [facility]. She had complained of abdominal pain earlier today. Onset of symptoms while walking. MD complaint: chest pain Onset (ago): hour(s) Onset: during exertion Pain location: left chest Pain radiation: none Quality: aching and heaviness Relieving factors: nitroglycerin Exacerbating factors: nothing Associated symptoms: Deny abdominal pain, diaphoresis, dyspnea, fever(s), leg edema, nausea, palpitations, sense of impending doom, syncope or vomiting Treatment prior to arrival: aspirin and nitroglycerin Review of Systems Const: Denies: fever(s), chills, fatigue, malaise or diaphoresis ENMT: Denies: throat pain, ear or mastoid pain, nasal discharge or nasal congestion Card: Reports: chest pain; Denies: palpitations, irregular heart rhythm, edema or syncope Resp: Denies: dyspnea GI: Denies: abdominal pain, nausea or vomiting : Denies: flank pain, difficulty voiding, dysuria, urinary frequency or urinary urgency Skin/Breast: Denies: rash or pruritus PFSH ED PFSH: Medical History Acquired hypothyroidism ED positive Angina pectoris without myocardial infarction Atherosclerosis Bradycardia Chest pain DDD (degenerative disc disease), lumbar Dyslipidemia Essential (primary) hypertension Facet syndrome Fibromyalgia GERD (gastroesophageal reflux disease) Lumbar spondylolysis Major depressive disorder Murmur Osteoarthritis Peripheral edema Restless leg syndrome Situational depression TIA (transient ischemic attack) 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 chronic kidney disease Surgical History History of cardiac cath Family History Other CAD (coronary artery disease) Social History Smoking and tobacco status: never smoked Physical Exam Const: GENERAL APPEARANCE: cooperative and comfortable ORIENTATION/CONSCIOUSNESS: Yes awake, Yes oriented to person, Yes oriented to place and Yes oriented to time HENMT: COMMON NORMALS: normocephalic, atraumatic and hearing grossly normal bilaterally HEAD & SCALP: normocephalic and atraumatic TEETH & GINGIVA: Yes other Resp: COMMON NORMALS: normal respiratory effort, No retractions, No use of accessory muscles and clear to auscultation bilaterally AUSCULTATION: clear to auscultation bilaterally Cardio: COMMON NORMALS: regular rate, regular rhythm and No murmurs present (Cardio) RATE: regular rate RHYTHM: regular rhythm GI: COMMON NORMALS: Soft to palpation and No hepatosplenomegaly present AUSCULTATION: Yes normoactive bowel sounds PALPATION: Yes Soft to palpation, No Tenderness to palpation present (GI), No Guarding due to palpation present (GI) and Yes No hepatosplenomegaly present Extremity: COMMON NORMALS: normal to inspection, capillary refill normal, no clubbing, cyanosis or edema, no calf tenderness and no pedal edema Neuro: SENSORIUM/ORIENTATION: Yes oriented to person, Yes oriented to place and Yes oriented to time Skin: COMMON NORMALS: no rashes or lesions noted GENERAL SKIN EXAM: no rashes or lesions noted Course Vital Signs: Vital signs: Vital Signs Temperature 97.7 F 08/27/22 15:21 Pulse Rate 75 08/27/22 17:40 Respiratory Rate 25 H 08/27/22 17:40 Blood Pressure 160/87 08/27/22 17:40 Pulse Oximetry 97 08/27/22 17:40 Oxygen Delivery Me thod 08/27/22 17:30 MDM - Chest Pain Medical Decision Making EKG did not show any acute changes. Patient had angiogram done just 6 months ago that was normal. Suspect that she is getting esophageal spasm. She does get a lot of reflux she says nitro does seem to help but at times ordering to increase her pantoprazole to twice daily have her follow-up with her primary care doctor. Return if is further problems. Medical Records I reviewed the patient's medical records. Lab Data I reviewed the patient's lab results. 08/27/22 15:40 08/27/22 15:40 Radiology Impressions Chest X-Ray 08/27/22 15:18 IMPRESSION: No acute findings. Laboratory Results WBC 11.3 10^3/uL (4.0-10.0) H 08/27/22 15:40 RBC 4.97 10^6/uL (4.1-5.3) 08/27/22 15:40 Hgb 13.6 g/dL (11.5-15.3) 08/27/22 15:40 Hct 42.6 % (37.0-47.0) 08/27/22 15:40 MCV 85.7 fl (81-99) 08/27/22 15:40 MCH 27.4 pg (28.0-34.0) L 08/27/22 15:40 MCHC 31.9 g/dL (30.0-36.0) 08/27/22 15:40 RDW 13.8 % (12.1-15.1) 08/27/22 15:40 Plt Count 291 10^3/cmm (130-400) 08/27/22 15:40 MPV 10.5 fL (7.4-10.4) H 08/27/22 15:40 Neut % (Auto) 66.0 % 08/27/22 15:40 Lymph % (Auto) 23.8 % 08/27/22 15:40 Long % (Auto) 8.4 % 08/27/22 15:40 Eos % (Auto) 1.0 % 08/27/22 15:40 Baso % (Auto) 0.4 % 08/27/22 15:40 Neut # (Auto) 7.47 10^3/uL (1.8-7.7) 08/27/22 15:40 Lymph # (Auto) 2.7 10^3/uL (0.8-4.8) 08/27/22 15:40 Long # (Auto) 1.0 10^3/uL (0.2-0.9) H 08/27/22 15:40 Eos # (Auto) 0.1 10^3/uL (0.0-0.8) 08/27/22 15:40 Baso # (Auto) 0.0 10^3/uL (0.0-0.1) 08/27/22 15:40 Nucleated RBC % (auto) 0 % 08/27/22 15:40 Nucleated RBCs # 0.0 /100WBC 08/27/22 15:40 Sodium 135 mmol/L (136-145) L 08/27/22 15:40 Potassium 3.7 mmol/L (3.5-5.1) 08/27/22 15:40 Chloride 96 mmol/L (98-107) L 08/27/22 15:40 Carbon Dioxide 28 mmol/L (22-29) 08/27/22 15:40 Anion Gap 14.7 (5-19) 08/27/22 15:40 BUN 19 mg/dL (8-23) 08/27/22 15:40 Creatinine 1.2 mg/dL (0.5-0.9) H 08/27/22 15:40 GFR Calculation Not Reportable 08/27/22 15:40 Glucose 178 mg/dL (65-115) H 08/27/22 15:40 Calculated Osmolality 287 mOsm/kg (285-295) 08/27/22 15:40 Calcium 9.8 mg/dL (8.5-10.5) 08/27/22 15:40 Total Bilirubin 0.3 mg/dL (0.15-1.2) 08/27/22 15:40 AST 21 U/L (0-32) 08/27/22 15:40 ALT 12 U/L (0-33) 08/27/22 15:40 Alkaline Phosphatase 123 U/L (35-105) H 08/27/22 15:40 Troponin T Baseline 18 ng/L (0-10) H 08/27/22 15:40 Troponin T 120 Minute 18.70 ng/L (0-10) H 08/27/22 17:21 Delta Troponin T 0.70 ABS# (0-10) 08/27/22 17:21 Total Protein 7.6 g/dL (6.6-8.7) 08/27/22 15:40 Albumin 4.1 g/dL (3.5-5.2) 08/27/22 15:40 Globulin 3.5 g/dL (1.3-4.6) 08/27/22 15:40 Discharge Plan Discharge Patient Disposition: Home Clinical Impression: Atypical chest pain, Esophageal spasm Condition: Stable Prescriptions: Changed Protonix 40 mg tablet,delayed release (DR/EC) 40 mg PO BID Qty: 60 0RF No Action promethazine 25 mg tablet 25 mg PO Q8H PRN (Reason: Nausea) Qty: 14 0RF acetaminophen [Tylenol Extra Strength] 500 mg tablet 500 mg PO Q6H PRN (Reason: Pain) alendronate [Fosamax] 70 mg tablet 70 mg PO Q7D Rx Instructions: ON MONDAYS pramipexole [Mirapex] 0.75 mg tablet 0.75 mg PO DAILY amlodipine 10 mg tablet 10 mg PO DAILY Qty: 90 3RF hydralazine 50 mg tablet 100 mg PO TID Qty: 120 3RF Aspir-81 81 mg Tablet,Delayed Release (Dr/Ec) 81 mg PO DAILY pravastatin 10 mg tablet 10 mg PO BEDTIME hydrochlorothiazide 12.5 mg tablet 12.5 mg PO DAILY nitroglycerin [Nitrostat] 0.4 mg Tablet, Sublingual 0.4 mg SUBLINGUAL Q5M PRN (Reason: Chest Pain) Rx Instructions: do not exceed 3 doses per episode lisinopril 20 mg Tablet 20 mg PO BID Qty: 60 2RF spironolactone 25 mg Tablet 25 mg PO DAILY Qty: 60 3RF isosorbide mononitrate 60 mg Tablet Extended Release 24 Hr 60 mg PO DAILY Qty: 120 4RF levothyroxine 150 mcg Tablet 150 mcg PO QAM Qty: 90 3RF Discharge Orders: Discharge ED (Routine); Ordered 08/27/22 Ordered By: Louis Stack Referrals: Arnoldo Wiley [Primary Care Provider] - Discharge Diet: As Directed Discharge Activity: Increase activity as tolerated Patient Instructions: Opioid Safety, Pain Management Activity Restrictions/Additional Instructions: You are seen today of an episode of chest pain. Your EKG and labs were normal. It was most likely GI related. Your angiogram done just a few months ago was normal. If you have any worsening symptoms return we will do recommend that you increase your pantoprazole to 1 pill twice daily. 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
[2022-08-27 15:52] LABS: Basophils % 0.4 %; Eosinophils # 0.1 10^3/uL (0.0-0.8); Hematocrit 42.6 % (37.0-47.0); Hemoglobin 13.6 g/dL (11.5-15.3); Lymphocytes # 2.7 10^3/uL (0.8-4.8); Lymphocytes % 23.8 %; Mean Corpuscular HGB Conc 31.9 g/dL (30.0-36.0); Mean Corpuscular Hemoglobin 27.4 pg (28.0-34.0); Mean Corpuscular Volume 85.7 fl (81-99); Mean Platelet Volume 10.5 fL (7.4-10.4); Monocytes % 8.4 %; Neutrophils # 7.47 10^3/uL (1.8-7.7); Nucleated Red Blood Cells % 0 %; Platelet Count 291 10^3/cmm (130-400); Red Blood Count 4.97 10^6/uL (4.1-5.3); Red Cell Distribution Width 13.8 % (12.1-15.1); White Blood Count 11.3 10^3/uL (4.0-10.0)
[2022-08-27 16:10] LABS: Troponin(5th) Baseline 18 ng/L (0-10)
[2022-08-27 16:12] LABS: Alanine Aminotransferase 12 U/L (0-33); Albumin Level 4.1 g/dL (3.5-5.2); Alkaline Phosphatase 123 U/L (35-105); Anion Gap 14.7 (5-19); Aspartate Amino Transferase 21 U/L (0-32); Blood Urea Nitrogen 19 mg/dL (8-23); Calcium 9.8 mg/dL (8.5-10.5); Carbon Dioxide 28 mmol/L (22-29); Chloride 96 mmol/L (98-107); Globulin 3.5 g/dL (1.3-4.6); Glucose 178 mg/dL (65-115); Osmolality Calculated 287 mOsm/kg (285-295); Potassium 3.7 mmol/L (3.5-5.1); Sodium 135 mmol/L (136-145); Total Bilirubin 0.3 mg/dL (0.15-1.2); Total Protein 7.6 g/dL (6.6-8.7)
--- NOTE | 2022-08-27 17:34 | ECG_ITS ---
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 Measurements Intervals [place] Rate: 72 P: 56 [place]: 164 QRS: -33 QRSD: 90 T: 81 QT: 417 QTc: 458 Interpretive Statements SINUS RHYTHM POSSIBLE LEFT ATRIAL ENLARGEMENT [-0.1mV P-WAVE IN V1/V2] LEFT AXIS DEVIATION [QRS AXIS < -30] ANTEROSEPTAL MYOCARDIAL INFARCTION , PROBABLY OLD [40+ ms Q WAVE IN V1-V4] Compared to ECG 08/27/2022 15:29:46 Left-axis deviation now present Myocardial infarct finding still present Electronically Signed On 08-28-2022 1:58:15 DIGITAL MANAGER by Bee Rios M.D. [id number]
[2022-08-27] MEDS: acetaminophen 500 mg Tablet 1000 MG PO (17:44)
== END 2022-08-27 18:25 | disposition home or self-care (01) ==
PROVIDERS: Emergency Provider Family Medicine; PCP Family Medicine
DX: R07.89 Other chest pain (principal); K22.4 Dyskinesia of esophagus; Z79.82 Long term (current) use of aspirin; I10 Essential (primary) hypertension; E78.5 Hyperlipidemia, unspecified; E11.9 Type 2 diabetes mellitus without complications; Z86.73 Personal history of transient ischemic attack (TIA), and cerebral infarction without residual deficits
CPT/HCPCS: 36415; 71045; 80053; 84484; 85025; 93005; 99285

== ENCOUNTER → 2024-03-30 13:20 | Outpatient (BNVA) | payer OTHER, SELFPAY | PROVIDERS: PCP Family Medicine; Visit Provider Orthopaedic Surgery | DX: M54.50 Low back pain, unspecified (principal); M54.9 Dorsalgia, unspecified; M43.16 Spondylolisthesis, lumbar region | CPT/HCPCS: 72110; 99204 ==

== ENCOUNTER → 2024-04-01 12:38 | Outpatient (BNVA) | payer OTHER, SELFPAY | PROVIDERS: PCP Family Medicine; Visit Provider Orthopaedic Surgery | DX: Z01.818 Encounter for other preprocedural examination (principal); M43.16 Spondylolisthesis, lumbar region | CPT/HCPCS: 80053; 81003; 81015; 85025; 99214 ==

== ENCOUNTER → 2024-05-04 11:20 | Outpatient (BNVA) | payer OTHER, SELFPAY | PROVIDERS: PCP Family Medicine; Visit Provider Family Medicine | DX: Z01.818 Encounter for other preprocedural examination (principal) | CPT/HCPCS: 80053; 81003; 85025; 87086; 93005 ==

== ENCOUNTER 2024-05-07 06:58 | Day surgery (SDC) | payer OTHER, SELFPAY ==
[2024-05-07] VITALS (12 sets, daily range): BP systolic 153–198; BP diastolic 77–113; PULSE 83–104; RESP 15–20; TEMP 36.1–36.6; O2SAT 93–98; BMI 36.2
[2024-05-07] MEDS: sodium chloride 0.9% 1,000 ML 30 ML IV (07:15)
--- NOTE | 2024-05-07 08:11 | ANES.PREANE2 ---
Pre-Anesthetic Assessment Height/Weight: Height 1.65 m Weight 98.883 kg Temp Pulse Resp BP Pulse Ox O2 Del Method 97.0 F L 104 H 18 198/113 93 Room Air 05/07/24 07:10 05/07/24 07:10 05/07/24 07:10 05/07/24 07:10 05/07/24 07:10 05/07/24 07:24 Preop Diagnosis: Lumbar stenosis with neurogenic claudication Operation Date: 05/07/24 09:00 Proposed Procedures p Lumbar Spine Decompression Lumbar Decompression(Not Applicable) - Jassi Malone, DO Familial anesthetic complications: None Was Beta Hyacinth taken within 24 hours: N/A Was Clonidine taken within 24 hours: N/A Last intake: Intake Last Liquid Date 05/06/24 Last Liquid Time 22:00 Last Solid Date 05/06/24 Last Solid Time 19:00 Social No alcohol and No tobacco Exam alert, oriented x 3, clear to auscultation bilaterally and regular rate & rhythm Airway Mallampati: Class III Dentition: other (no teeth) Pulmonary Sleep Apnea CV/HEM Hypertension Chronic Renal Insufficiency Surgeon aware of 05/04 UA - not placing any hardware today GI Gastroesophageal Reflux Disease Metabolic Diabetes Mellitus (diet controlled), Hyperlipidemia, Morbid Obesity and Thyroid Disease Neuropsych Transient Ischemic Attack Anesthetic Plan ASA status: 3 Anesthesia: General Risk of > 500 ml blood loss (7ml/kg in children): No Medications/Allergies Home Medications Medication Instructions Recorded Confirmed Last Taken Type acetaminophen 500 mg tablet 500 mg PO Q6H PRN Pain 02/27/21 05/06/24 Unknown History (Tylenol Extra Strength) alendronate 70 mg tablet (Fosamax) 70 mg PO Q7D 02/27/21 05/06/24 1 Week Ago History ~04/29/24 pramipexole 0.75 mg tablet 0.75 mg PO DAILY 02/27/21 05/06/24 05/06/24 History (Mirapex) nitroglycerin 0.4 mg sublingual 0.4 mg sublingual Q5M PRN Chest 02/10/22 05/06/24 Unknown History tablet (Nitrostat) Pain levothyroxine 150 mcg tablet 150 mcg PO QAM #90 tabs 02/12/22 05/06/24 05/07/24 Rx aspirin 81 mg tablet,delayed 81 mg PO DAILY 08/27/22 05/06/24 1 Month Ago History release ~04/06/24 baclofen 5 mg tablet 5 mg PO TID PRN Muscle Spasm 05/04/24 05/06/24 05/05/24 History furosemide 20 mg tablet 20 mg PO DAILY 05/04/24 05/06/24 1 Week Ago History ~04/29/24 lisinopril 20 mg tablet 40 mg PO BID 05/04/24 05/06/24 05/05/24 History nifedipine 90 mg tablet,extended 90 mg PO DAILY 05/04/24 05/06/24 05/06/24 History release 24 hr omeprazole 40 mg capsule,delayed 40 mg PO DAILY 05/04/24 05/06/24 05/06/24 History release oxycodone-acetaminophen 7.5 mg-325 1 tab PO Q6H PRN Pain 05/04/24 05/06/24 05/06/24 History mg tablet trazodone 100 mg tablet 100 mg PO .qhs 05/04/24 05/06/24 05/02/24 History fosfomycin tromethamine 3 gram 1 packet PO Q3D #1 ea 05/06/24 Unknown Rx oral packet Allergies Allergy/AdvReac Type Severity Reaction Status Date / Time aspartame Allergy Unknown Unknown Verified 05/04/24 11:44 capsaicin Allergy Unknown Unresponsiv Verified 05/04/24 11:44 e lorazepam Allergy Unknown Unknown Verified 05/04/24 11:44 penicillin G Allergy Unknown Unknown Verified 05/04/24 11:44 pentazocine Allergy Unknown Unknown Verified 05/04/24 11:44 ranitidine Allergy Unknown Unknown Verified 05/04/24 11:44 topiramate Allergy Unknown Unknown Verified 05/04/24 11:44 tuberculin, purified protein Allergy Unknown Unknown Verified 05/04/24 11:44 deriva amlodipine AdvReac ADR-Nausea Verified 05/04/24 11:44 metformin AdvReac ADR-Nausea Verified 05/04/24 11:44 sulfamethoxazole AdvReac ADR-Nausea Verified 05/04/24 11:44 [From Sulfamethoxazole-Trimethoprim] trimethoprim AdvReac ADR-Nausea Verified 05/04/24 11:44 [From Sulfamethoxazole-Trimethoprim] pentazocine-naloxone Allergy Unknown Unknown Uncoded 05/04/24 11:37 [facility] Anesthesia Medical History Chest pain Angina pectoris without myocardial infarction Bradycardia Acquired hypothyroidism GERD (gastroesophageal reflux disease) Lumbar spondylolysis DDD (degenerative disc disease), lumbar Facet syndrome Restless leg syndrome Atherosclerosis ED positive Peripheral edema Fibromyalgia Situational depression Murmur TIA (transient ischemic attack) Essential (primary) hypertension Dyslipidemia 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
--- NOTE | 2024-05-07 08:38 | W.PM.OPSUD ---
Surgery/Procedure H&P Update DATE OF PROCEDURE: May 07, 2024 DATE H&P PERFORMED: 05/04/24 H&P UPDATE INFORMATION: I have reviewed H&P completed within last 30 days, I have examined patient prior to procedure and No changes to prior documentation PREOP DIAGNOSIS: Lumbar stenosis with neurogenic claudication PLANNED PROCEDURE: Operation Date: 05/07/24 09:00 Proposed Procedures p Lumbar Spine Decompression Lumbar Decompression(Not Applicable) - Jassi Malone DO
[2024-05-07] MEDS: clindamycin 900 MG/50 ML PREMIX 100 MG IV (09:05)
[2024-05-07] MEDS: lidocaine-epi 1% 20 mL INJ INJECTION (09:40)
--- NOTE | 2024-05-07 10:12 | XR_ITS ---
WS: [id number] XR lumbar spine 2-3V* [id number] REASON FOR EXAM: OR PICS FINDINGS: Surgical instrument overlying the left L4-L5 disc space. XR/XR lumbar spine 2-3V* [id number] IMPRESSION: Lumbar level localization and surgery as above.
[2024-05-07] MEDS: fentaNYL 50 mcg/mL INJ 2mL 100 MCG IVP (10:30)
--- NOTE | 2024-05-07 10:33 | PM.OP ---
Operative Report Date of procedure: May 07, 2024 Pre-op diagnosis: Lumbar stenosis with neurogenic claudication Post-op diagnosis: same Procedure done: L4-5 laminectomy with partial facetectomy Surgeon: Jassi Malone DO Estimated blood loss (mL): 10 Procedure: L4-5 laminectomy with partial facetectomy Patient is brought to the operative suite. After undergoing anesthesia they are placed in the prone position. All areas of impingement are well padded. Patient is then prepped and draped in the normal sterile fashion. A skin incision is made over the L4/5 level. This is confirmed under c-arm guidance. A series of dilators are passed and the tubular retractor is docked on the L4 lamina. A bovie is used to clear the soft tissue off the lamina and the L 4/5 facet joint. A high speed carmen is then used to perform the laminectomy and take down the medial aspect of the L 4/5 facet joint. A kerrison rongeure was then used to take down the remaining lamina and smooth the edge of the laminectomy up to the point where the ligamentum flavum attaches. Attention was then brought to the medial aspect of the facet joint. The remaining medial aspect of the superior and inferior aspect of the facet joint were taken down with the kerrison from the pedicle of L4 to L 5. The facet joint had significant hypertrophy. Attention was then brought to the Ligamentum Flavum. The ligament was taken down from the lamina of L4 to L5 and out medially to the remaining facet joint. The ligament was thick. The dura was then exposed. The dura was in good repair. The L4 nerve was then traced with a curette out the L4/5 foramen and found to be adequately decompressed. The L5 nerve was traced with a curette around the L5 pedicle. The lateral recess was opened with a kerrison helping to further decompress the L5 nerve. Wound is then irrigated copiously with saline and surgiflo is used to stop any bleeding. The tubular retractor is removed and the wound is closed with vicryl and monocryl suture. Glue is then used to protect the wound. A sterile dressing is then placed. Patient was then placed in the supine position and transferred to the PACU in stable condition.
[2024-05-07] MEDS: oxyCODONE-APAP 10-325 mg Tablet 1 TAB PO (11:16)
--- NOTE | 2024-05-10 13:31 | XR_ITS ---
WS: [id number] C-[facility] RADIOGRAPHS LUMBAR SPINE; 2 IMAGES HISTORY: OR PIC, I AND D COMPARISON: None available. Single film films submitted indicating the RIGHT lower lumbar region, probably L4-5.
== END 2024-05-07 12:01 | disposition home or self-care (01) ==
PROVIDERS: PCP Family Medicine; Visit Provider Orthopaedic Surgery
PROC: (CPT 63005; principal; 2024-05-07 08:40)
DX: M48.062 Spinal stenosis, lumbar region with neurogenic claudication (principal); G47.30 Sleep apnea, unspecified; K21.9 Gastro-esophageal reflux disease without esophagitis; E78.5 Hyperlipidemia, unspecified; E66.01 Morbid (severe) obesity due to excess calories; Z68.36 Body mass index [BMI] 36.0-36.9, adult; Z86.73 Personal history of transient ischemic attack (TIA), and cerebral infarction without residual deficits; E03.9 Hypothyroidism, unspecified; M79.7 Fibromyalgia; E11.22 Type 2 diabetes mellitus with diabetic chronic kidney disease; N18.9 Chronic kidney disease, unspecified; I12.9 Hypertensive chronic kidney disease with stage 1 through stage 4 chronic kidney disease, or unspecified chronic kidney disease
CPT/HCPCS: 63047; 72100; 76000; J1100; J2405; J2704; J2710; J3010; J3490; J7030

== ENCOUNTER 2024-05-08 15:44 | Inpatient (IN) | payer OTHER, SELFPAY ==
[2024-05-08 15:55] VITALS: BP 193/60; PULSE 66; RESP 19; TEMP 36.8; O2SAT 97; BMI 36.2
--- NOTE | 2024-05-08 16:04 | ED_ITS ---
HPI - Back Pain/Injury 2 General: Chief Complaint: Back Pain/Injury Stated Complaint: back pain s/p surgery Time Seen by Provider: 05/08/24 16:01 History of Present Illness: This patient is a 78-year-old white female who presents to the emergency department with severe low back pain. Patient underwent a lumbar spine laminectomy yesterday by Dr. Malone. She was in severe pain earlier today and brought in by ambulance. EMS gave her 2 mg of Dilaudid IV. She desatted somewhat after the medication has been requiring some oxygen. On my exam she was sedated. She woke up easily. She continues to complain of pain in the low back radiating down the right leg. Related Data Home Medications Medication Instructions Recorded Confirmed acetaminophen 500 mg tablet 500 mg PO Q6H PRN Pain 02/27/21 05/06/24 (Tylenol Extra Strength) alendronate 70 mg tablet (Fosamax) 70 mg PO Q7D 02/27/21 05/06/24 pramipexole 0.75 mg tablet 0.75 mg PO DAILY 02/27/21 05/06/24 (Mirapex) nitroglycerin 0.4 mg sublingual 0.4 mg sublingual Q5M PRN Chest 02/10/22 05/06/24 tablet (Nitrostat) Pain aspirin 81 mg tablet,delayed 81 mg PO DAILY 08/27/22 05/06/24 release baclofen 5 mg tablet 5 mg PO TID PRN Muscle Spasm 05/04/24 05/06/24 furosemide 20 mg tablet 20 mg PO DAILY 05/04/24 05/06/24 lisinopril 20 mg tablet 40 mg PO BID 05/04/24 05/06/24 nifedipine 90 mg tablet,extended 90 mg PO DAILY 05/04/24 05/06/24 release 24 hr omeprazole 40 mg capsule,delayed 40 mg PO DAILY 05/04/24 05/06/24 release trazodone 100 mg tablet 100 mg PO .qhs 05/04/24 05/06/24 Previous Rx's Medication Instructions Recorded levothyroxine 150 mcg tablet 150 mcg PO QAM #90 tabs 02/12/22 fosfomycin tromethamine 3 gram 1 packet PO Q3D #1 ea 05/06/24 oral packet oxycodone-acetaminophen 10 mg-325 1 tab PO Q4H PRN pain 7 days #42 05/07/24 mg tablet tabs Allergies Allergy/AdvReac Type Severity Reaction Status Date / Time aspartame Allergy Unknown Unknown Verified 05/04/24 11:44 capsaicin Allergy Unknown Unresponsiv Verified 05/04/24 11:44 e lorazepam Allergy Unknown Unknown Verified 05/04/24 11:44 penicillin G Allergy Unknown Unknown Verified 05/04/24 11:44 pentazocine Allergy Unknown Unknown Verified 05/04/24 11:44 ranitidine Allergy Unknown Unknown Verified 05/04/24 11:44 topiramate Allergy Unknown Unknown Verified 05/04/24 11:44 tuberculin, purified protein Allergy Unknown Unknown Verified 05/04/24 11:44 deriva amlodipine AdvReac ADR-Nausea Verified 05/04/24 11:44 metformin AdvReac ADR-Nausea Verified 05/04/24 11:44 sulfamethoxazole AdvReac ADR-Nausea Verified 05/04/24 11:44 [From Sulfamethoxazole-Trimethoprim] trimethoprim AdvReac ADR-Nausea Verified 05/04/24 11:44 [From Sulfamethoxazole-Trimethoprim] pentazocine-naloxone Allergy Unknown Unknown Uncoded 05/04/24 11:37 Review of Systems 2 General: Reports: 10 or more systems reviewed and unremarkable except in HPI and below Musc: Reports: back pain PFSH ED 2 PFSH: Medical History Chest pain Angina pectoris without myocardial infarction Bradycardia Acquired hypothyroidism GERD (gastroesophageal reflux disease) Lumbar spondylolysis DDD (degenerative disc disease), lumbar Facet syndrome Restless leg syndrome Atherosclerosis ED positive Peripheral edema Fibromyalgia Situational depression Murmur TIA (transient ischemic attack) Essential (primary) hypertension Dyslipidemia 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 chronic kidney disease Osteoarthritis Major depressive disorder Surgical History History of cardiac cath Family History Other CAD (coronary artery disease) Social History Smoking and tobacco/nicotine status: never used tobacco/nicotine Physical Exam 2 Const: COMMON NORMALS: patient oriented x3 and no limitations GENERAL APPEARANCE: cooperative, comfortable and in distress HENMT: COMMON NORMALS: normocephalic, atraumatic, Normal nasal mucous membranes and turbinates present, moist oral mucous membranes and oropharynx normal HEAD & SCALP: normal to inspection, normocephalic and atraumatic F RUMA & SINUS: normal facial exam NOSE: Normal nasal mucous membranes and turbinates present Eye: COMMON NORMALS: Equal, round and reactive pupils present, EOMs intact bilaterally and conjunctivae normal GENERAL EYE: appearance normal, both eyes and all related structures CONJUNCTIVA: Yes conjunctivae normal PUPIL: Yes Equal, round and reactive pupils present Neck/C-Spine: COMMON NORMALS: supple and no JVD Chest: COMMONS NORMALS: normal inspection of the chest Resp: COMMON NORMALS: normal respiratory effort and clear to auscultation bilaterally AUSCULTATION: clear to auscultation bilaterally Cardio: COMMON NORMALS: no JVD, regular rate, regular rhythm, No gallops present (Cardio), No murmurs present (Cardio) and No rub (Cardio) RATE: r egular rate RHYTHM: regular rhythm GI: COMMON NORMALS: Normal to inspection, nondistended, normoactive bowel sounds present, Soft to palpation and non-tender AUSCULTATION: Yes normoactive bowel sounds PALPATION: Yes Soft to palpation Back/Pelvis: LUMBAR SPINE/LOWER BACK: Yes lumbar spinal tenderness Extremity: COMMON NORMALS: normal to inspection Neuro: COMMON NORMALS: patient oriented x3 and CN's II-XII intact bilaterally Psych: COMMON NORMALS: mental status grossly normal, Normal thought process present and cooperative THOUGHT PROCESS: Normal thought process present Skin: COMMON NORMALS: no rashes or lesions noted, turgor normal and no jaundice GENERAL SKIN EXAM: no rashes or lesions noted and turgor normal Course 2 Vital Signs: Vital signs: Vital Signs Temperature 98.3 F 05/08/24 15:55 Pulse Rate 69 05/08/24 20:32 Respiratory Rate 22 H 05/08/24 20:32 Blood Pressure 185/87 05/08/24 20:32 Pulse Oximetry 97 05/08/24 20:32 Oxygen Delivery Me thod Room Air 05/08/24 20:32 Oxygen Flow Rate 2 05/08/24 18:26 MDM - Back Pain/Injury Medical Decision Making I initially discussed the case with Dr. Malone. He had recommended admitting the patient to the hospitalist service for pain control. I discussed the case with Dr. Syeda. She said they would take the patient however they required a workup first including labs and imaging of the spine. We did obtain a CBC which revealed a white blood cell count of 12.3. CMP was normal. Urinalysis was normal. MRI of the lumbar spine was read by the radiologist. There is a leak which is appears to be either a seroma or CSF causing compression in the area of the laminectomy. I contacted Dr. Malone again. He states the patient does not need surgery for this. He thought it was likely hematoma or seroma. He would like the patient admitted to the hospitalist service for steroids and pain control. I discussed the case with Dr. Wright and he did accept the patient. Patient is stable. She will be transferred to the floor shortly. Labs 05/08/24 17:08 05/08/24 17:08 Radiology Impressions Lumbar Spine MRI 05/08/24 16:56 IMPRESSION: 1. Postsurgical change with right laminectomy L4-L5. Suggestion of diffuse soft tissue high signal intensity fluid/edema within the soft tissues of the back. In addition, sagittal inversion recovery and axial T2 images demonstrate high signal intensity fluid at the right laminectomy site and adjacent region resulting in significant encroachment of the spinal canal on the right and proximal right neural foramen, with fluid extending posteriorly into the posterior soft tissues on the right. On axial exam, this measures approximately 3.5 cm in length and approximately 1.5-2 cm in width. This could represent postop contained CSF leak or postop fluid such as seroma. This does not appear complex to suggest abscess, though infection not excluded. In any event, this results in severe spinal and proximal right foraminal stenosis due to right-sided encroachment. 2. Other multilevel chronic findings as noted above. ADDENDUM: 05/08/24 [id number] THIS REPORT CONTAINS FINDINGS THAT MAY BE CRITICAL TO PATIENT CARE. The findings were verbally communicated via telephone conference with TEMITOPE PEDRO at 9:47 PM CDT on 05/08/2024. The findings were acknowledged and understood. Laboratory Results WBC 12.35 10^3/uL (3.29-11.43) H 05/08/24 17:08 RBC 4.51 10^6/uL (3.85-5.65) 05/08/24 17:08 Hgb 12.80 g/dL (11.27-16.99) 05/08/24 17:08 Hct 40.5 % (36-47) 05/08/24 17:08 MCV 89.8 fl (85-98) 05/08/24 17:08 MCH 28.4 pg (27-33) 05/08/24 17:08 MCHC 31.6 g/dL (30-55) 05/08/24 17:08 RDW 14.4 % (12.1-15.1) 05/08/24 17:08 Plt Count 216 10^3/cmm (157-399) 05/08/24 17:08 MPV 11.3 fL (7.4-10.4) H 05/08/24 17:08 Neut % (Auto) 63.4 % 05/08/24 17:08 Lymph % (Auto) 23.4 % 05/08/24 17:08 Heard % (Auto) 12.3 % 05/08/24 17:08 Eos % (Auto) 0.3 % 05/08/24 17:08 Baso % (Auto) 0.2 % 05/08/24 17:08 Neut # (Auto) 7.83 10^3/uL (1.8-7.7) H 05/08/24 17:08 Lymph # (Auto) 2.9 10^3/uL (0.8-4.8) 05/08/24 17:08 Heard # (Auto) 1.5 10^3/uL (0.2-0.9) H 05/08/24 17:08 Eos # (Auto) 0.0 10^3/uL (0.0-0.8) 05/08/24 17:08 Baso # (Auto) 0.0 10^3/uL (0.0-0.1) 05/08/24 17:08 Nucleated RBC % (auto) 0 % 05/08/24 17:08 Nucleated RBCs # 0.0 /100WBC 05/08/24 17:08 Sodium 140 mmol/L (136-145) 05/08/24 17:08 Potassium 4.3 mmol/L (3.5-5.1) 05/08/24 17:08 Chloride 104 mmol/L (98-107) 05/08/24 17:08 Carbon Dioxide 27 mmol/L (22-29) 05/08/24 17:08 Anion Gap 13.3 (5-19) 05/08/24 17:08 BUN 12 mg/dL (8-23) 05/08/24 17:08 Creatinine 1.0 mg/dL (0.5-0.9) H 05/08/24 17:08 GFR Calculation Not Reportable 05/08/24 17:08 Glucose 118 mg/dL (65-115) H 05/08/24 17:08 Calculated Osmolality 291 mOsm/kg (285-295) 05/08/24 17:08 Calcium 8.9 mg/dL (8.5-10.5) 05/08/24 17:08 Total Bilirubin 0.4 mg/dL (0.15-1.2) 05/08/24 17:08 AST 35 U/L (0-32) H 05/08/24 17:08 ALT 35 U/L (0-33) H 05/08/24 17:08 Alkaline Phosphatase 142 U/L (35-105) H 05/08/24 17:08 Total Protein 6.9 g/dL (6.6-8.7) 05/08/24 17:08 Albumin 3.5 g/dL (3.5-5.2) 05/08/24 17:08 Globulin 3.4 g/dL (1.3-4.6) 05/08/24 17:08 Urine Color Yellow (Yellow) 05/08/24 17:24 Urine Appearance Clear (CLEAR) 05/08/24 17:24 Urine pH 6.5 (5-7) 05/08/24 17:24 Ur Specific [place] 1.008 (1.005-1.030) 05/08/24 17:24 Urine Protein Negative (Negative) 05/08/24 17:24 Urine Glucose (UA) Negative (Normal) 05/08/24 17:24 Urine Ketones Negative (Negative) 05/08/24 17:24 Urine Blood Negative (Negative) 05/08/24 17:24 Urine Nitrate Negative (Negative) 05/08/24 17:24 Urine Bilirubin Negative (Negative) 05/08/24 17:24 Urine Urobilinogen 1.0 mg/dL (Negative) 05/08/24 17:24 Ur Leukocyte Esterase Negative (Negative) 05/08/24 17:24 Urine RBC 0-2 /hpf (0-2) 05/08/24 17:24 Urine WBC 0-5 /hpf (0-5) 05/08/24 17:24 Ur Squamous Epith Cells 0-5 /hpf (0-5) 05/08/24 17:24 Amorphous Sediment Not Reportable 05/08/24 17:24 Urine Bacteria None seen /hpf (NONE) 05/08/24 17:24 Hyaline Casts 0.40 /lpf 05/08/24 17:24 All radiology interpretation(s) finalized by discharge Discharge Plan Discharge Condition: Stable Prescriptions: No Action nifedipine 90 mg tablet extended release 24hr 90 mg PO DAILY furosemide 20 mg tablet 20 mg PO DAILY lisinopril 20 mg tablet 40 mg PO BID omeprazole 40 mg capsule,delayed release(DR/EC) 40 mg PO DAILY trazodone 100 mg tablet 100 mg PO .qhs baclofen 5 mg tablet 5 mg PO TID PRN (Reason: Muscle Spasm) acetaminophen [Tylenol Extra Strength] 500 mg tablet 500 mg PO Q6H PRN (Reason: Pain) alendronate [Fosamax] 70 mg tablet 70 mg PO Q7D Rx Instructions: ON MONDAYS pramipexole [Mirapex] 0.75 mg tablet 0.75 mg PO DAILY fosfomycin tromethamine 3 gram packet 1 packet PO Q3D Qty: 1 0RF aspirin 81 mg Tablet,Delayed Release (Dr/Ec) 81 mg PO DAILY Hold Instructions: Resume on 05/08/24. oxycodone-acetaminophen 10-325 mg tablet 1 tab PO Q4H PRN (Reason: pain) 7 Days Qty: 42 0RF nitroglycerin [Nitrostat] 0.4 mg Tablet, Sublingual 0.4 mg SUBLINGUAL Q5M PRN (Reason: Chest Pain) Rx Instructions: do not exceed 3 doses per episode levothyroxine 150 mcg Tablet 150 mcg PO QAM Qty: 90 3RF Referrals: Arnoldo Wiley [Primary Care Provider] - Coding Level of Care Code ED [facility] Specialist for Svitlanag Kanika
--- NOTE | 2024-05-08 16:56 | MRR_ITS ---
PROCEDURE INFORMATION: Exam: MR Lumbar Spine Without Contrast Exam date and time: 05/08/2024 5:42 PM Age: 78 years old Clinical indication: Low back pain and lumbago with sciatica; Right; Prior surgery; Surgery date: Post-operative (0-2 days); Surgery type: Lumbar laminectomy; Patient HX: L4-l5 spondylolisthesis; Additional info: Severe post operative pain S/P lumbar laminectomy TECHNIQUE: Imaging protocol: Magnetic resonance imaging of the lumbar spine without contrast. COMPARISON: MR lumbar spine wo con* [id number] 12/04/2023 4:15 PM FINDINGS: Bones/joints: Lumbar vertebral body heights appear maintained. Slight lumbar levoscoliosis. Mild or grade 1 anterolisthesis L4 on L5. Alignment is otherwise unremarkable. Mild disc space narrowing L4-L5 and moderate disc space narrowing L5-S1. Modic degenerative endplate signal changes and fatty marrow signal change and focally L3 vertebra. Previous laminectomy on the right L4-L5 level. Spinal cord: Conus medullaris appears to end at the L1 level and is unremarkable in signal intensity. L1-L2: Jkas-dj-kiiftmlr spondylotic disc bulging with mild spinal and neural foraminal narrowing. L2-L3: Mild spondylotic disc bulging with ligamentum flavum thickening. No significant spinal stenosis. Mild foraminal narrowing, fagpz-fsiubqw-[id number]-left. L3-L4: Arwl-sz-zapoqjel spondylotic disc bulging with ligamentum flavum thickening. Biqq-bi-yiqyqtov spinal stenosis and foraminal narrowing. L4-L5: Ygos-gg-qbbsvymu spondylotic bulging. Previous laminectomy on the right. Facet arthropathy on the left. Sagittal inversion recovery and axial T2 images demonstrate high signal intensity fluid at the level of the right laminectomy. This appears to encroach the right side of the spinal canal on the axial images and extends posteriorly within the soft tissues on the right. Severe spinal stenosis and proximal right foraminal stenosis. L5-S1: Moderate spondylotic disc bulging and mild ligamentum flavum hypertrophy. Yctn-xx-dnssdfct spinal stenosis and foraminal narrowing. Soft tissues: Sagittal inversion recovery images demonstrate diffuse high signal intensity edema within the posterior soft tissues of the back. MR/MR lumbar spine wo con* [id number] IMPRESSION: 1. Postsurgical change with right laminectomy L4-L5. Suggestion of diffuse soft tissue high signal intensity fluid/edema within the soft tissues of the back. In addition, sagittal inversion recovery and axial T2 images demonstrate high signal intensity fluid at the right laminectomy site and adjacent region resulting in significant encroachment of the spinal canal on the right and proximal right neural foramen, with fluid extending posteriorly into the posterior soft tissues on the right. On axial exam, this measures approximately 3.5 cm in length and approximately 1.5-2 cm in width. This could represent postop contained CSF leak or postop fluid such as seroma. This does not appear complex to suggest abscess, though infection not excluded. In any event, this results in severe spinal and proximal right foraminal stenosis due to right-sided encroachment. 2. Other multilevel chronic findings as noted above.
[2024-05-08 17:21] LABS: Basophils % 0.2 %; Eosinophils % 0.3 %; Hematocrit 40.5 % (36-47); Lymphocytes # 2.9 10^3/uL (0.8-4.8); Lymphocytes % 23.4 %; Mean Corpuscular HGB Conc 31.6 g/dL (30-55); Mean Corpuscular Hemoglobin 28.4 pg (27-33); Mean Corpuscular Volume 89.8 fl (85-98); Mean Platelet Volume 11.3 fL (7.4-10.4); Monocytes # 1.5 10^3/uL (0.2-0.9); Monocytes % 12.3 %; Neutrophils # 7.83 10^3/uL (1.8-7.7); Neutrophils % 63.4 %; Nucleated Red Blood Cells % 0 %; Platelet Count 216 10^3/cmm (157-399); Red Blood Count 4.51 10^6/uL (3.85-5.65); Red Cell Distribution Width 14.4 % (12.1-15.1); White Blood Count 12.35 10^3/uL (3.29-11.43)
[2024-05-08 17:38] LABS: Bilirubin Urine Negative (Negative); Blood Urine Negative (Negative); Glucose Urine UA Negative (Normal); Ketones Urine Negative (Negative); Leukocyte Esterase Urine Negative (Negative); Nitrate Urine Negative (Negative); Protein Urine Negative (Negative); Specific Gravity, Urine 1.008 (1.005-1.030); Urine Appearance Clear (CLEAR); Urine Color Yellow (Yellow); pH Urine 6.5 (5-7)
[2024-05-08 17:39] LABS: Alanine Aminotransferase 35 U/L (0-33); Albumin Level 3.5 g/dL (3.5-5.2); Alkaline Phosphatase 142 U/L (35-105); Anion Gap 13.3 (5-19); Aspartate Amino Transferase 35 U/L (0-32); Blood Urea Nitrogen 12 mg/dL (8-23); Calcium 8.9 mg/dL (8.5-10.5); Carbon Dioxide 27 mmol/L (22-29); Chloride 104 mmol/L (98-107); Creatinine Clr Calc Pharmacy 55.7246; Globulin 3.4 g/dL (1.3-4.6); Glucose 118 mg/dL (65-115); Osmolality Calculated 291 mOsm/kg (285-295); Potassium 4.3 mmol/L (3.5-5.1); Sodium 140 mmol/L (136-145); Total Bilirubin 0.4 mg/dL (0.15-1.2); Total Protein 6.9 g/dL (6.6-8.7)
[2024-05-08 17:43] LABS: Add Urine Microscopic? YES; Bacteria Urine None Seen /hpf; RBC Urine 0-2 /hpf (0-2); Squamous Epithelial Cell Urine 0-5 /hpf (0-5); WBC Urine 0-5 /hpf (0-5)
[2024-05-08 18:26] VITALS: BP 193/54; PULSE 67; O2SAT 99
[2024-05-08] MEDS: HYDROmorphone 1 mg/mL INJ 1 mL 0.5 MG IVP ×2 (19:26→23:41)
[2024-05-08 20:32] VITALS: BP 185/87; PULSE 69; RESP 22; O2SAT 97
--- NOTE | 2024-05-08 22:09 | P.HP_ITS ---
Providers/Chief Complaint 2 Primary Care Provider: Arnoldo Wiley Chief Complaint: back pain s/p surgery History of Present Illness Pleasant 78-year-old lady with history of lumbar spine stenosis with neurogenic claudication who underwent L4-5 laminectomy with partial facetectomy here yesterday, returns to the hospital as she has not been able to manage pain at home, coming in with severe lower back pain radiating to her legs. In ER moaning and vocalizing pain, could not find a comfortable position, it hurts more when she moves. She is feeling cold, although is afebrile, mild leukocytosis 12.35 is noted. At home she had been using oxycodone that was prescribed for her, but without any relief. Orthospine surgery was contacted in ER. MRI was obtained with finding of postsurgical changes, laminectomy L4-5, diffuse of tissue high signal intensity fluid/edema within the soft tissues of the back. Sagittal inversion recovery and axial T2 images demonstrate high signal intensity fluid at the right laminectomy site and adjacent region resulting in significant encroachment of the spinal canal on the right and proximal right neural foramen with fluid extending posteriorly into the posterior soft tissues on the right. On axial exam this measures about 3.5 cm in length and 1.5-2 cm in width. Good represent postop contained CSF leak or postop fluid such as seroma. Does not appear complex to suggest abscess although infection not excluded. Resulting in severe spinal and proximal right foraminal stenosis due to right-sided encroachment. Other multilevel chronic findings. Findings were discussed with her orthospine surgeon, no indication for acute surgical intervention, with surgery recommendation for admission with steroid therapy and for optimization of pain control. Review of Systems 2 Const: Denies: fever(s), chills, body aches or malaise ENMT: Denies: throat pain Card: Denies: chest pain, edema, pre-syncope or dyspnea on exertion Resp: Denies: dyspnea, productive cough, change in phlegm color or hemoptysis GI: Denies: abdominal pain, nausea, vomiting, diarrhea, constipation, hematochezia or melena : Denies: flank pain, urinary frequency or hematuria Musc: Reports: back pain; Denies: joint swelling or joint redness Skin/Breast: Denies: rash or new lesions Neuro: Denies: headache(s) or dizziness Endo: Denies: polyuria or polydipsia Medications/Allergies Home Medications Medication Instructions Recorded Confirmed Last Taken Type acetaminophen 500 mg tablet 500 mg PO Q6H PRN Pain 02/27/21 05/06/24 Unknown History (Tylenol Extra Strength) alendronate 70 mg tablet (Fosamax) 70 mg PO Q7D 02/27/21 05/06/24 1 Week Ago History ~04/29/24 pramipexole 0.75 mg tablet 0.75 mg PO DAILY 02/27/21 05/06/24 05/06/24 History (Mirapex) nitroglycerin 0.4 mg sublingual 0.4 mg sublingual Q5M PRN Chest 02/10/22 05/06/24 Unknown History tablet (Nitrostat) Pain levothyroxine 150 mcg tablet 150 mcg PO QAM #90 tabs 02/12/22 05/06/24 05/07/24 Rx aspirin 81 mg tablet,delayed 81 mg PO DAILY 08/27/22 05/06/24 1 Month Ago History release ~04/06/24 baclofen 5 mg tablet 5 mg PO TID PRN Muscle Spasm 05/04/24 05/06/24 05/05/24 History furosemide 20 mg tablet 20 mg PO DAILY 05/04/24 05/06/24 1 Week Ago History ~04/29/24 lisinopril 20 mg tablet 40 mg PO BID 05/04/24 05/06/24 05/05/24 History nifedipine 90 mg tablet,extended 90 mg PO DAILY 05/04/24 05/06/24 05/06/24 History release 24 hr omeprazole 40 mg capsule,delayed 40 mg PO DAILY 05/04/24 05/06/24 05/06/24 History release trazodone 100 mg tablet 100 mg PO .qhs 05/04/24 05/06/24 05/02/24 History fosfomycin tromethamine 3 gram 1 packet PO Q3D #1 ea 05/06/24 Unknown Rx oral packet oxycodone-acetaminophen 10 mg-325 1 tab PO Q4H PRN pain 7 days #42 05/07/24 Unknown Rx mg tablet tabs Allergies Allergy/AdvReac Type Severity Reaction Status Date / Time aspartame Allergy Unknown Unknown Verified 05/04/24 11:44 capsaicin Allergy Unknown Unresponsiv Verified 05/04/24 11:44 e lorazepam Allergy Unknown Unknown Verified 05/04/24 11:44 penicillin G Allergy Unknown Unknown Verified 05/04/24 11:44 pentazocine Allergy Unknown Unknown Verified 05/04/24 11:44 ranitidine Allergy Unknown Unknown Verified 05/04/24 11:44 topiramate Allergy Unknown Unknown Verified 05/04/24 11:44 tuberculin, purified protein Allergy Unknown Unknown Verified 05/04/24 11:44 deriva amlodipine AdvReac ADR-Nausea Verified 05/04/24 11:44 metformin AdvReac ADR-Nausea Verified 05/04/24 11:44 sulfamethoxazole AdvReac ADR-Nausea Verified 05/04/24 11:44 [From Sulfamethoxazole-Trimethoprim] trimethoprim AdvReac ADR-Nausea Verified 05/04/24 11:44 [From Sulfamethoxazole-Trimethoprim] pentazocine-naloxone Allergy Unknown Unknown Uncoded 05/04/24 11:37 PFSH Acute 2 PFSH: Medical History Chest pain Angina pectoris without myocardial infarction Bradycardia Acquired hypothyroidism GERD (gastroesophageal reflux disease) Lumbar spondylolysis DDD (degenerative disc disease), lumbar Facet syndrome Restless leg syndrome Atherosclerosis ED positive Peripheral edema Fibromyalgia Situational depression Murmur TIA (transient ischemic attack) Essential (primary) hypertension Dyslipidemia 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 chronic kidney disease Osteoarthritis Major depressive disorder Surgical History History of cardiac cath Family History Other CAD (coronary artery disease) Social History Smoking and tobacco/nicotine status: never used tobacco/nicotine Vitals/I&O/Wt Last Vital Signs Temp 98.3 F 05/08/24 15:55 Pulse 69 05/08/24 20:32 Resp 22 H 05/08/24 20:32 BP 185/87 05/08/24 20:32 Pulse Ox 97 05/08/24 20:32 O2 Del Method Room Air 05/08/24 20:32 O2 Flow Rate 2 05/08/24 18:26 Weight last 48 hrs Weight 98.883 kg Physical Exam 2 Narrative: In pain Const: COMMON NORMALS: patient oriented x3 and alert GENERAL APPEARANCE: c ooperative NUTRITIONAL APPEARANCE: obese ORIENTATION/CONSCIOUSNESS: Yes awake HENMT: COMMON NORMALS: oropharynx normal Neck/C-Spine: COMMON NORMALS: no JVD Resp: COMMON NORMALS: normal respiratory effort and clear to auscultation bilaterally AUSCULTATION: clear to auscultation bilaterally Cardio: COMMON NORMALS: no JVD, regular rhythm, S1 normal heart sound present, S2 normal heart sound present and No murmurs present (Cardio) RHYTHM: regular rhythm HEART SOUNDS: S1 normal heart sound present and S2 normal heart sound present GI: COMMON NORMALS: Normal to inspection, nondistended, normoactive bowel sounds present, Soft to palpation and non-tender PALPATION: Yes Soft to palpation Extremity: COMMON NORMALS: no joint enlargement and no pedal edema OTHER: Moving both lower extremities. Neuro: COMMON NORMALS: patient oriented x3 and moves all extremities S ENSORIUM/ORIENTATION: Yes alert Skin: COMMON NORMALS: no rashes or lesions noted GENERAL SKIN EXAM: no rashes or lesions noted Data 05/08/24 17:08 05/08/24 17:08 A&P Assessment and plan (1) Intractable pain: Was unable to control pain at home with prescribed opioid, having severe low back pain radiating to both legs. Reviewed vitals, CBC, CMP, UA, ED provider note. Discussed with ED provider. MRI was obtained with finding of postsurgical changes, laminectomy L4-5, diffuse of tissue high signal intensity fluid/edema within the soft tissues of the back. Sagittal inversion recovery and axial T2 images demonstrate high signal intensity fluid at the right laminectomy site and adjacent region resulting in significant encroachment of the spinal canal on the right and proximal right neural foramen with fluid extending posteriorly into the posterior soft tissues on the right. On axial exam this measures about 3.5 cm in length and 1.5-2 cm in width. Good represent postop contained CSF leak or postop fluid such as seroma. Does not appear complex to suggest abscess although infection not excluded. Resulting in severe spinal and proximal right foraminal stenosis due to right-sided encroachment. Other multilevel chronic findings. Findings were discussed with her orthospine surgeon, no indication for acute surgical intervention, with surgery recommendation for admission with steroid therapy and for optimization of pain control. With additional new spinal stenosis as a of monitor inpatient for any progression of swelling, cord compression, monitor for cauda equina syndrome. Requiring IV Dilaudid. Continue with IV opioid pain control every 3 hours, may need adjustment depending on response. Start IV dexamethasone [address] Valerio catheter. Bedrest for today, reposition frequently to prevent pressure ulcers. PT assessment once available on Friday. Acetaminophen, hydrocodone for moderate pain. Back pain. Bowel regimen, MiraLAX. (2) History of lumbar laminectomy for spinal cord decompression: On 05/07. Reviewed orthopedic note. (3) HTN (hypertension): Currently uncontrolled hypertension, blood pressure as high as 190/113 on presentation. Currently 185/87. Likely secondary to severe pain. Treat pain as above. Continue lisinopril, nifedipine. Plan Mild transaminitis, alk phos elevation: Repeat CMP. RLS: Continue pramipexole GERD: PPI Hypothyroidism: Levothyroxine. Requested to confirm home medications, please review and resume as appropriate. Attestations 2 Medical Necessity Statement*: Place in observation for additional assessment management of intractable back pain, failed outpatient management with new spinal stenosis, intervertebral foraminal stenosis with nerve impingement, severe pain following laminectomy, facetectomy on 05/07 and a lady with uncontrolled hypertension, additional companies. Diagnoses Intractable pain R52 History of lumbar laminectomy for spinal cord decompression Z98.890 HTN (hypertension) I10
[2024-05-08 23:47] VITALS: BP 136/87; PULSE 87; O2SAT 97
[2024-05-09] VITALS (10 sets, daily range): BP systolic 137–210; BP diastolic 71–98; PULSE 68–87; RESP 14–20; TEMP 36.7–37.3; O2SAT 93–98; BMI 36.3
[2024-05-09] MEDS: HYDROcodone-acetaminophen 5-325 mg Tablet 1 TAB PO ×2 (00:53→06:11)
[2024-05-09] MEDS: baclofen 10 mg Tablet 5 MG PO ×3 (00:53→21:32)
[2024-05-09] MEDS: lisinopril 20 mg Tablet 40 MG PO ×3 (00:53→18:33)
[2024-05-09] MEDS: dexamethasone 10 mg/mL INJ IVP ×2 (00:54→08:31)
[2024-05-09] MEDS: ondansetron 2 mg/ML SDV 2 mL 4 MG IVP (00:54)
[2024-05-09] MEDS: enoxaparin 40 mg/0.4 mL Syringe SUBCUT (04:41)
[2024-05-09] MEDS: hyDRALAzine 20 mg/mL INJ 1 mL 5 MG IVP (04:41)
[2024-05-09 05:33] LABS: Basophils % 0.3 %; Hematocrit 45.1 % (36-47); Lymphocytes # 1.1 10^3/uL (0.8-4.8); Lymphocytes % 7.1 %; Mean Corpuscular Hemoglobin 28.1 pg (27-33); Mean Corpuscular Volume 90.4 fl (85-98); Mean Platelet Volume 11.4 fL (7.4-10.4); Monocytes # 0.4 10^3/uL (0.2-0.9); Monocytes % 2.3 %; Neutrophils # 13.83 10^3/uL (1.8-7.7); Neutrophils % 89.7 %; Nucleated Red Blood Cells % 0 %; Platelet Count 232 10^3/cmm (157-399); Red Blood Count 4.99 10^6/uL (3.85-5.65); Red Cell Distribution Width 14.2 % (12.1-15.1); White Blood Count 15.41 10^3/uL (3.29-11.43)
[2024-05-09 06:05] LABS: Alanine Aminotransferase 37 U/L (0-33); Albumin Level 3.8 g/dL (3.5-5.2); Alkaline Phosphatase 170 U/L (35-105); Anion Gap 18.5 (5-19); Aspartate Amino Transferase 33 U/L (0-32); Blood Urea Nitrogen 11 mg/dL (8-23); Calcium 9.5 mg/dL (8.5-10.5); Carbon Dioxide 25 mmol/L (22-29); Chloride 101 mmol/L (98-107); Creatinine Clr Calc Pharmacy 62.2208; Globulin 4.1 g/dL (1.3-4.6); Glucose 162 mg/dL (65-115); Osmolality Calculated 293 mOsm/kg (285-295); Potassium 4.5 mmol/L (3.5-5.1); Sodium 140 mmol/L (136-145); Total Bilirubin 0.5 mg/dL (0.15-1.2); Total Protein 7.9 g/dL (6.6-8.7)
[2024-05-09] MEDS: pantoprazole DR 40 mg Tablet PO (08:31)
[2024-05-09] MEDS: aspirin 81 mg EC Tablet PO (08:31)
[2024-05-09] MEDS: NIFEdipine ER (24 hr) 30 mg Tablet 90 MG PO (08:31)
[2024-05-09] MEDS: pramipexole 0.25 mg Tablet 0.75 MG PO (08:31)
[2024-05-09] MEDS: polyethylene glycol 3350 Pkt 17 gm PO ×2 (08:32→18:36)
--- NOTE | 2024-05-09 12:07 | P.CONIM_ITS ---
Providers/Reason For Consult 2 Consulting Physician/Specialty*: Pain control Reason for Consult*: Back and leg pain postoperative Attending Physician: Chloé Landa MD Primary Care Provider: Arnoldo Wiley History of Present Illness History of Present Illness Monique Wiley is a 78 year old female had surgery on 05/07/2024. She had a right laminectomy with partial facetectomy. Postop findings on MRI suggest hematoma. Patient is admitted for pain control. Review of Systems 2 Const: Denies: fever(s), chills, body aches or malaise ENMT: Denies: throat pain Card: Denies: chest pain, edema, pre-syncope or dyspnea on exertion Resp: Denies: dyspnea, productive cough, change in phlegm color or hemoptysis GI: Denies: abdominal pain, nausea, vomiting, diarrhea, constipation, hematochezia or melena : Denies: flank pain, urinary frequency or hematuria Musc: Reports: back pain; Denies: joint swelling or joint redness Skin/Breast: Denies: rash or new lesions Neuro: Denies: headache(s) or dizziness Endo: Denies: polyuria or polydipsia Medications/Allergies Home Medications Medication Instructions Recorded Confirmed Last Taken Type acetaminophen 500 mg tablet 500 mg PO Q6H PRN Pain 02/27/21 05/06/24 Unknown History (Tylenol Extra Strength) alendronate 70 mg tablet (Fosamax) 70 mg PO Q7D 02/27/21 05/06/24 1 Week Ago History ~04/29/24 pramipexole 0.75 mg tablet 0.75 mg PO DAILY 02/27/21 05/06/24 05/06/24 History (Mirapex) nitroglycerin 0.4 mg sublingual 0.4 mg sublingual Q5M PRN Chest 02/10/22 05/06/24 Unknown History tablet (Nitrostat) Pain levothyroxine 150 mcg tablet 150 mcg PO QAM #90 tabs 02/12/22 05/06/24 05/07/24 Rx aspirin 81 mg tablet,delayed 81 mg PO DAILY 08/27/22 05/06/24 1 Month Ago History release ~04/06/24 baclofen 5 mg tablet 5 mg PO TID PRN Muscle Spasm 05/04/24 05/06/24 05/05/24 History furosemide 20 mg tablet 20 mg PO DAILY 05/04/24 05/06/24 1 Week Ago History ~04/29/24 lisinopril 20 mg tablet 40 mg PO BID 05/04/24 05/06/24 05/05/24 History nifedipine 90 mg tablet,extended 90 mg PO DAILY 05/04/24 05/06/24 05/06/24 History release 24 hr omeprazole 40 mg capsule,delayed 40 mg PO DAILY 05/04/24 05/06/24 05/06/24 History release trazodone 100 mg tablet 100 mg PO .qhs 05/04/24 05/06/24 05/02/24 History fosfomycin tromethamine 3 gram 1 packet PO Q3D #1 ea 05/06/24 Unknown Rx oral packet oxycodone-acetaminophen 10 mg-325 1 tab PO Q4H PRN pain 7 days #42 05/07/24 Unknown Rx mg tablet tabs Allergies Allergy/AdvReac Type Severity Reaction Status Date / Time aspartame Allergy Unknown Unknown Verified 05/04/24 11:44 capsaicin Allergy Unknown Unresponsiv Verified 05/04/24 11:44 e lorazepam Allergy Unknown Unknown Verified 05/04/24 11:44 penicillin G Allergy Unknown Unknown Verified 05/04/24 11:44 pentazocine Allergy Unknown Unknown Verified 05/04/24 11:44 ranitidine Allergy Unknown Unknown Verified 05/04/24 11:44 topiramate Allergy Unknown Unknown Verified 05/04/24 11:44 tuberculin, purified protein Allergy Unknown Unknown Verified 05/04/24 11:44 deriva amlodipine AdvReac ADR-Nausea Verified 05/04/24 11:44 metformin AdvReac ADR-Nausea Verified 05/04/24 11:44 sulfamethoxazole AdvReac ADR-Nausea Verified 05/04/24 11:44 [From Sulfamethoxazole-Trimethoprim] trimethoprim AdvReac ADR-Nausea Verified 05/04/24 11:44 [From Sulfamethoxazole-Trimethoprim] pentazocine-naloxone Allergy Unknown Unknown Uncoded 05/04/24 11:37 Current Medications Generic Name Dose Route Start Last Admin Trade Name Freq PRN Reason Stop Dose Admin Hydrocodone Bitart/Acetaminophen 1 tab 05/09/24 00:06 05/09/24 06:11 Hydrocodone-Acetaminophen 5-325 Mg Tablet PO 1 tab Q4H PRN Administration MODERATE TO SEVERE PAIN Aspirin 81 mg 05/09/24 09:00 05/09/24 08:31 Aspirin 81 Mg Ec Tablet PO 81 mg DAILY ABILIO Administration Baclofen 5 mg 05/09/24 00:37 05/09/24 08:30 Baclofen 10 Mg Tablet PO 5 mg TID PRN Administration Muscle Spasm Dexamethasone 10 mg 05/09/24 00:06 05/09/24 08:31 Dexamethasone 10 Mg/Ml Inj IVP 10 mg DAILY ABILIO Administration Enoxaparin Sodium 40 mg 05/09/24 06:00 05/09/24 04:41 Enoxaparin 40 Mg/0.4 Ml Syringe SUBCUT 40 mg Q24H ABILIO Administration Lisinopril 40 mg 05/09/24 00:06 05/09/24 08:30 Lisinopril 20 Mg Tablet PO 40 mg BID ABILIO Administration Nifedipine 90 mg 05/09/24 09:00 05/09/24 08:31 Nifedipine Er (24 Hr) 30 Mg Tablet PO 90 mg DAILY ABILIO Administration Ondansetron HCl 4 mg 05/09/24 00:06 05/09/24 00:54 Ondansetron 2 Mg/Ml Sdv 2 Ml IVP 4 mg Q8H PRN Administration vomiting, or N/V if npo Pantoprazole Sodium 40 mg 05/09/24 09:00 05/09/24 08:[address] 40 Mg Tablet PO 40 mg DAILY ABILIO Administration Polyethylene Glycol 17 gm 05/09/24 09:00 05/09/24 08:32 Polyethylene Glycol 3350 Pkt 17 Gm PO 17 gm BID ABILIO Administration Pramipexole Dihydrochloride 0.75 mg 05/09/24 09:00 05/09/24 08:31 Pramipexole 0.25 Mg Tablet PO 0.75 mg DAILY ABILIO Administration PFSH Acute 2 PFSH: Medical History Chest pain Angina pectoris without myocardial infarction Bradycardia Acquired hypothyroidism GERD (gastroesophageal reflux disease) Lumbar spondylolysis DDD (degenerative disc disease), lumbar Facet syndrome Restless leg syndrome Atherosclerosis ED positive Peripheral edema Fibromyalgia Situational depression Murmur TIA (transient ischemic attack) Essential (primary) hypertension Dyslipidemia 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 chronic kidney disease Osteoarthritis Major depressive disorder Surgical History History of cardiac cath Family History Other CAD (coronary artery disease) Social History Smoking and tobacco/nicotine status: never used tobacco/nicotine Vitals/I&O/Wt Last Vital Signs Temp 98.3 F 05/09/24 07:51 Pulse 75 05/09/24 07:51 Resp 20 H 05/09/24 07:51 BP 185/73 05/09/24 07:51 Pulse Ox 97 05/09/24 07:51 O2 Del Method Nasal Cannula 05/09/24 07:51 O2 Flow Rate 2 05/09/24 04:00 05/08/24 05/09/24 05/09/24 22:59 06:59 14:59 Intake Total 360 / 360 Output Total 1100 / 1100 Balance -1100 / -1100 360 / 360 Weight last 48 hrs Weight 220 lb Weight 221 lb 9.6 oz Weight 218 lb Physical Exam 2 Narrative: Patient was sleeping when I walked in the room however when she woke she is complaining severe pain. She has 5 5 strength in her right lower extremity with sensation intact. But has pain in her back and radiating down her leg to her ankle. Urinary Catheter Management: Valerio: Cath Placed During This Visit: yes Reason for Continuing Indwelling Catheter: Acute Urinary Retention or Obstruction Urinary Catheter Date of Insertion: 05/09/24 Urinary Catheter Time of Insertion: 00:45 Data 05/09/24 04:29 05/09/24 04:29 A&P Assessment and plan (1) History of lumbar laminectomy for spinal cord decompression: Patient is 2 days status post laminectomy. MRI shows hematoma on area of operation. Patient continues to have pain this significant tomorrow will plan to proceed with evacuation of the hematoma. Will make her n.p.o. tonight and evaluate in the morning. Coding Level of Care Code Acute Code for Chg Fwd Diagnoses History of lumbar laminectomy for spinal cord decompression Z98.890
--- NOTE | 2024-05-09 12:07 | PC.NURSE ---
New orders from Dr. Landa to increase [place] from 5-325 to 7.5-325 mg [place] tablet Q4H.
[2024-05-09] MEDS: HYDROcodone-acetaminophen 7.5-325 mg Tablet 1 TAB PO ×3 (12:20→21:32)
--- NOTE | 2024-05-09 13:08 | P.PN_ITS ---
Subjective 2 Subjective: Seen today. Patient complains of a lot of back pain however says she might be very slightly better than yesterday. Seen by spine surgeon this morning. Vitals/I&O/Wt Last Vital Signs Temp 98.3 F 05/09/24 07:51 Pulse 75 05/09/24 07:51 Resp 20 H 05/09/24 07:51 BP 185/73 05/09/24 07:51 Pulse Ox 97 05/09/24 07:51 O2 Del Method Nasal Cannula 05/09/24 07:51 O2 Flow Rate 2 05/09/24 04:00 05/08/24 05/09/24 05/09/24 22:59 06:59 14:59 Intake Total 360 / 360 Output Total 1100 / 1100 Balance -1100 / -1100 360 / 360 Weight last 48 hrs Weight 99.79 kg Weight 100.516 kg Weight 98.883 kg Physical Exam 2 Narrative: In pain Const: COMMON NORMALS: patient oriented x3 and alert GENERAL APPEARANCE: c ooperative NUTRITIONAL APPEARANCE: obese ORIENTATION/CONSCIOUSNESS: Yes awake HENMT: COMMON NORMALS: oropharynx normal Neck/C-Spine: COMMON NORMALS: no JVD Resp: COMMON NORMALS: normal respiratory effort and clear to auscultation bilaterally AUSCULTATION: clear to auscultation bilaterally Cardio: COMMON NORMALS: no JVD, regular rhythm, S1 normal heart sound present, S2 normal heart sound present and No murmurs present (Cardio) RHYTHM: regular rhythm HEART SOUNDS: S1 normal heart sound present and S2 normal heart sound present GI: COMMON NORMALS: Normal to inspection, nondistended, normoactive bowel sounds present, Soft to palpation and non-tender PALPATION: Yes Soft to palpation Extremity: COMMON NORMALS: no joint enlargement and no pedal edema OTHER: Moving both lower extremities. Right leg pain radiating down to foot. Neuro: COMMON NORMALS: patient oriented x3 and moves all extremities S ENSORIUM/ORIENTATION: Yes alert Skin: COMMON NORMALS: no rashes or lesions noted GENERAL SKIN EXAM: no rashes or lesions noted Urinary Catheter Management: Valerio: Cath Placed During This Visit: yes Reason for Continuing Indwelling Catheter: Acute Urinary Retention or Obstruction Urinary Catheter Date of Insertion: 05/09/24 Urinary Catheter Time of Insertion: 00:45 Data 05/09/24 04:29 05/09/24 04:29 A&P Assessment and plan (1) Intractable pain: Was unable to control pain at home with prescribed opioid, having severe low back pain radiating to both legs. Reviewed vitals, CBC, CMP, UA, ED provider note. Discussed with ED provider. MRI was obtained with finding of postsurgical changes, laminectomy L4-5, diffuse of tissue high signal intensity fluid/edema within the soft tissues of the back. Sagittal inversion recovery and axial T2 images demonstrate high signal intensity fluid at the right laminectomy site and adjacent region resulting in significant encroachment of the spinal canal on the right and proximal right neural foramen with fluid extending posteriorly into the posterior soft tissues on the right. On axial exam this measures about 3.5 cm in length and 1.5-2 cm in width. Good represent postop contained CSF leak or postop fluid such as seroma. Does not appear complex to suggest abscess although infection not excluded. Resulting in severe spinal and proximal right foraminal stenosis due to right-sided encroachment. Other multilevel chronic findings. Findings were discussed with her orthospine surgeon, no indication for acute surgical intervention, with surgery recommendation for admission with steroid therapy and for optimization of pain control. With additional new spinal stenosis as a of monitor inpatient for any progression of swelling, cord compression, monitor for cauda equina syndrome. Requiring IV Dilaudid. Continue with IV opioid pain control every 3 hours, may need adjustment depending on response. Start IV dexamethasone [address] Valerio catheter. Bedrest for today, reposition frequently to prevent pressure ulcers. PT assessment once available on Friday. Acetaminophen, hydrocodone for moderate pain. Back pain. Bowel regimen, MiraLAX. (2) History of lumbar laminectomy for spinal cord decompression: On 05/07. Reviewed orthopedic note. (3) HTN (hypertension): Currently uncontrolled hypertension, blood pressure as high as 190/113 on presentation. Currently 185/87. Likely secondary to severe pain. Treat pain as above. Continue lisinopril, nifedipine. Plan Mild transaminitis, alk phos elevation: Repeat CMP. RLS: Continue pramipexole GERD: PPI Hypothyroidism: Levothyroxine. Requested to confirm home medications, please review and resume as appropriate. 05/09 Postlaminectomy syndrome Hematoma at surgical site. NPO at midnight tonight. Evaluated by spine surgeon. Plan for possible surgical exploration for evacuation of hematoma in AM. Continue pain control Continue dexamethasone 10 IV push daily Continue baclofen Patient does have elevated blood pressure however there is a pain component to that. Attestations 2 Medical Necessity Statement*: Plan for surgical intervention in AM. Will cross greater than 2 midnights at this point. Diagnoses Intractable pain R52 History of lumbar laminectomy for spinal cord decompression Z98.890 HTN (hypertension) I10
[2024-05-10] VITALS (27 sets, daily range): BP systolic 129–190; BP diastolic 52–89; PULSE 55–94; RESP 12–22; TEMP 36.3–36.9; O2SAT 90–98
--- NOTE | 2024-05-10 | XR_ITS ---
WS: [id number] RADIOGRAPHS LUMBAR SPINE; 2 IMAGES HISTORY: OR PIC, I AND D COMPARISON: None available. Single film films submitted indicating the RIGHT lower lumbar region, probably L4-5. XR/XR lumbar spine 2-3V* 19503 IMPRESSION: Intraoperative imaging during spinal procedure.
[2024-05-10] MEDS: HYDROmorphone 1 mg/mL INJ 1 mL IVP ×3 (01:37→22:20)
[2024-05-10] MEDS: HYDROcodone-acetaminophen 7.5-325 mg Tablet 1 TAB PO ×3 (03:59→21:30)
[2024-05-10 05:53] LABS: Basophils % 0.1 %; Hematocrit 42.2 % (36-47); Lymphocytes # 2.1 10^3/uL (0.8-4.8); Lymphocytes % 12.4 %; Mean Corpuscular Hemoglobin 27.4 pg (27-33); Mean Corpuscular Volume 88.3 fl (85-98); Mean Platelet Volume 11.9 fL (7.4-10.4); Monocytes % 12.2 %; Neutrophils # 12.42 10^3/uL (1.8-7.7); Neutrophils % 74.9 %; Nucleated Red Blood Cells % 0 %; Platelet Count 249 10^3/cmm (157-399); Red Blood Count 4.78 10^6/uL (3.85-5.65); Red Cell Distribution Width 14.1 % (12.1-15.1); White Blood Count 16.59 10^3/uL (3.29-11.43)
[2024-05-10 06:10] LABS: Alanine Aminotransferase 25 U/L (0-33); Albumin Level 3.3 g/dL (3.5-5.2); Alkaline Phosphatase 131 U/L (35-105); Anion Gap 14.2 (5-19); Aspartate Amino Transferase 14 U/L (0-32); Blood Urea Nitrogen 22 mg/dL (8-23); Calcium 9.5 mg/dL (8.5-10.5); Carbon Dioxide 26 mmol/L (22-29); Chloride 98 mmol/L (98-107); Globulin 3.8 g/dL (1.3-4.6); Glucose 120 mg/dL (65-115); Osmolality Calculated 283 mOsm/kg (285-295); Potassium 4.2 mmol/L (3.5-5.1); Sodium 134 mmol/L (136-145); Total Bilirubin 0.4 mg/dL (0.15-1.2); Total Protein 7.1 g/dL (6.6-8.7)
[2024-05-10 06:13] LABS: Creatinine Clr Calc Pharmacy 56.0244
[2024-05-10] MEDS: lisinopril 20 mg Tablet 40 MG PO ×2 (08:47→17:16)
[2024-05-10] MEDS: NIFEdipine ER (24 hr) 30 mg Tablet 90 MG PO (08:47)
[2024-05-10] MEDS: pantoprazole DR 40 mg Tablet PO (08:50)
[2024-05-10] MEDS: pramipexole 0.25 mg Tablet 0.75 MG PO (08:50)
[2024-05-10] MEDS: dexamethasone 10 mg/mL INJ IVP (08:50)
--- NOTE | 2024-05-10 09:24 | PC.CHAP ---
Pastoral Care Encounter/Spiritual Assessment Type of Contact [] Declined photonics engineering technician visit [] Patient/Family/Request visit [] Outpatient visit [] Follow-up visit [] Physician referral [] Code/Alert [x] Routine visit [] Staff referral [] Actively dying [] Patient sleeping [] Family support [] [] Out of room [] Palliative care [] [] Receiving care in room [] Pre-surgical visit [] Trauma [] Long length of stay [] ICU visit [] Other: Relational/Emotional Strength [] Patient feels connected with others/family/visitors/staff [] Distress [] Loneliness/isolation [] Abandonment Spirituality of Patient [x] Person of Jessy [] Attends Jew of their Jessy [x] Believes in Prayer [] Reads Bible or Roman Catholic materials [] There are Spiritual issues to be addressed Blade Changer Interventions [x] Prayer [x] Active listening [] Non-anxious presence [] Spiritual/emotional support [] Crisis/trauma care [] Spiritual counseling [] Bereavement support [] Provided bereavement packet [x] Provided Bible/devotional materials [] Provided toy/stuffed animal, coloring book to patient or family member [] Provided Communion [] Anointing/[place] [] Salvation [x] Completed spiritual assessment [] Other: Impact on Illness or Injury [] Angry [] Fearful [] Anxious [] Often cries [] Exhaustion [] Unable to work [] Unable to attend taoism [] Unable to walk/stand [] Unable to read [] Unable to drive [] Unable to eat/drink [] Unable to sleep [] Unable to be with family [] Patient intubated [] Other: Summary Time spent with patient 5 min
[2024-05-10] MEDS: sodium chloride 0.9% 1,000 ML 30 ML IV (11:09)
--- NOTE | 2024-05-10 11:09 | PC.PHAR ---
PATIENT IS [facility] WORKING ON [facility] L[facility]
--- NOTE | 2024-05-10 11:10 | ANES.PREANE2 ---
Pre-Anesthetic Assessment Height/Weight: Height 5 ft 5.5 in Weight 220 lb 3 oz Temp Pulse Resp BP Pulse Ox O2 Del Method O2 Flow Rate 97.3 F L 75 18 145/63 95 Room Air 2 05/10/24 11:03 05/10/24 11:03 05/10/24 11:03 05/10/24 11:03 05/10/24 11:03 05/10/24 11:03 05/10/24 04:00 Operation Date: 05/10/24 11:10 Proposed Procedures p Evacuation of hematoma of spine(Not Applicable) - Jassi Malone DO Last intake: Intake Last Liquid Date 05/09/24 Last Liquid Time 21:00 Last Solid Date 05/09/24 Last Solid Time 21:00 Anesthetic Plan ASA status: 3 Anesthesia: General Other: No prior issues with anesthesia NPO since yesterday Patient recently had a procedure on 05/07/2024. Returns with hematoma today Hypertension on lisinopril and chronic Lasix. AM BP 145/63 Hypothyroidism on Synthroid GERD on omeprazole Labs 05/10/2024 reviewed. WBC 16.59, hemoglobin 13.1, sodium 134, but K+ 4.2, creatinine 1.0 EKG showing sinus rhythm with mild T wave abnormality Numerous allergies noted Plan for GETA Medications/Allergies Home Medications Medication Instructions Recorded Confirmed Last Taken Type acetaminophen 500 mg tablet 500 mg PO Q6H PRN Pain 02/27/21 05/10/24 Unknown History (Tylenol Extra Strength) alendronate 70 mg tablet (Fosamax) 70 mg PO Q7D 02/27/21 05/10/24 05/03/24 History pramipexole 0.75 mg tablet 0.75 mg PO DAILY 02/27/21 05/06/24 05/06/24 History (Mirapex) nitroglycerin 0.4 mg sublingual 0.4 mg sublingual Q5M PRN Chest 02/10/22 05/06/24 Unknown History tablet (Nitrostat) Pain levothyroxine 150 mcg tablet 150 mcg PO QAM #90 tabs 02/12/22 05/10/24 05/07/24 Rx aspirin 81 mg tablet,delayed 81 mg PO DAILY 08/27/22 05/10/24 1 Month Ago History release ~04/06/24 baclofen 5 mg tablet 5 mg PO TID PRN Muscle Spasm 05/04/24 05/10/24 05/07/24 History furosemide 20 mg tablet 20 mg PO DAILY 05/04/24 05/10/24 05/07/24 History lisinopril 20 mg tablet 40 mg PO BID 05/04/24 05/10/24 05/07/24 History nifedipine 90 mg tablet,extended 90 mg PO DAILY 05/04/24 05/10/24 05/07/24 History release 24 hr omeprazole 40 mg capsule,delayed 40 mg PO DAILY 05/04/24 05/06/24 05/06/24 History release trazodone 100 mg tablet 100 mg PO .qhs 05/04/24 05/06/24 05/02/24 History oxycodone-acetaminophen 10 mg-325 1 tab PO Q4H PRN pain 7 days #42 05/07/24 Unknown Rx mg tablet tabs Allergies Allergy/AdvReac Type Severity Reaction Status Date / Time aspartame Allergy Unknown Unknown Verified 05/04/24 11:44 capsaicin Allergy Unknown Unresponsiv Verified 05/04/24 11:44 e lorazepam Allergy Unknown Unknown Verified 05/04/24 11:44 penicillin G Allergy Unknown Unknown Verified 05/04/24 11:44 pentazocine Allergy Unknown Unknown Verified 05/04/24 11:44 ranitidine Allergy Unknown Unknown Verified 05/04/24 11:44 topiramate Allergy Unknown Unknown Verified 05/04/24 11:44 tuberculin, purified protein Allergy Unknown Unknown Verified 05/04/24 11:44 deriva amlodipine AdvReac ADR-Nausea Verified 05/04/24 11:44 metformin AdvReac ADR-Nausea Verified 05/04/24 11:44 sulfamethoxazole AdvReac ADR-Nausea Verified 05/04/24 11:44 [From Sulfamethoxazole-Trimethoprim] trimethoprim AdvReac ADR-Nausea Verified 05/04/24 11:44 [From Sulfamethoxazole-Trimethoprim] pentazocine-naloxone Allergy Unknown Unknown Uncoded 05/04/24 11:37 Current Medications Generic Name Dose Route Start Last Admin Trade Name Freq PRN Reason Stop Dose Admin Hydrocodone Bitart/Acetaminophen 1 tab 05/09/24 12:06 05/10/24 03:59 Hydrocodone-Acetaminophen 7.5-325 Mg Tablet PO 1 tab Q4H PRN Administration MODERATE PAIN Aspirin 81 mg 05/09/24 09:00 05/10/24 09:18 Aspirin 81 Mg Ec Tablet PO Not Given DAILY ABILIO Baclofen 5 mg 05/09/24 00:37 05/09/24 21:32 Baclofen 10 Mg Tablet PO 5 mg TID PRN Administration Muscle Spasm Dexamethasone 10 mg 05/09/24 00:06 05/10/24 08:50 Dexamethasone 10 Mg/Ml Inj IVP 10 mg DAILY ABILIO Administration Enoxaparin Sodium 40 mg 05/09/24 06:00 05/10/24 06:16 Enoxaparin 40 Mg/0.4 Ml Syringe SUBCUT Not Given Q24H ABILIO Hydromorphone HCl 1 mg 05/09/24 01:25 05/10/24 06:15 Hydromorphone 1 Mg/Ml Inj 1 Ml IVP 1 mg Q3H PRN Administration SEVERE PAIN Sodium Chloride 1,000 mls @ 30 mls/hr 05/10/24 11:00 05/10/24 11:09 Sodium Chloride 0.9% IV 05/11/24 10:59 30 mls/hr .Q24H ABILIO Administration Lisinopril 40 mg 05/09/24 00:06 05/10/24 08:47 Lisinopril 20 Mg Tablet PO 40 mg BID ABILIO Administration Nifedipine 90 mg 05/09/24 09:00 05/10/24 08:47 Nifedipine Er (24 Hr) 30 Mg Tablet PO 90 mg DAILY ABILIO Administration Ondansetron HCl 4 mg 05/09/24 00:06 05/09/24 00:54 Ondansetron 2 Mg/Ml Sdv 2 Ml IVP 4 mg Q8H PRN Administration vomiting, or N/V if npo Pantoprazole Sodium 40 mg 05/09/24 09:00 05/10/24 08:[address] 40 Mg Tablet PO 40 mg DAILY ABILIO Administration Polyethylene Glycol 17 gm 05/09/24 09:00 05/10/24 09:18 Polyethylene Glycol 3350 Pkt 17 Gm PO Not Given BID ABILIO Pramipexole Dihydrochloride 0.75 mg 05/09/24 09:00 05/10/24 08:50 Pramipexole 0.25 Mg Tablet PO 0.75 mg DAILY ABILIO Administration PFSH Anesthesia Medical History Chest pain Angina pectoris without myocardial infarction Bradycardia Acquired hypothyroidism GERD (gastroesophageal reflux disease) Lumbar spondylolysis DDD (degenerative disc disease), lumbar Facet syndrome Restless leg syndrome Atherosclerosis ED positive Peripheral edema Fibromyalgia Situational depression Murmur TIA (transient ischemic attack) Essential (primary) hypertension Dyslipidemia 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 chronic kidney disease Osteoarthritis Major depressive disorder Surgical History History of cardiac cath Family History Other CAD (coronary artery disease) Social History Smoking and tobacco/nicotine status: never used tobacco/nicotine Data Anesthesia 05/10/24 04:56 05/10/24 04:56 Short CBC 05/08/24 05/09/24 05/10/24 Range/Units 17:08 04:29 04:56 WBC 12.35 H 15.41 H 16.59 H (3.29-11.43) 10^3/uL Hgb 12.80 14.00 13.10 (11.27-16.99) g/dL Hct 40.5 45.1 42.2 (36-47) % MCV 89.8 90.4 88.3 (85-98) fl Plt Count 216 232 249 (157-399) 10^3/cmm Neut % (Auto) 63.4 89.7 74.9 % Neut # (Auto) 7.83 H 13.83 H 12.42 H (1.8-7.7) 10^3/uL BMP 05/08/24 05/09/24 05/10/24 17:08 04:29 04:56 Sodium 140 140 134 L Potassium 4.3 4.5 4.2 Chloride 104 101 98 Carbon Dioxide 27 25 26 BUN 12 11 22 Creatinine 1.0 H 0.9 1.0 H Glucose 118 H 162 H 120 H Calcium 8.9 9.5 9.5 Liver Function 05/08/24 05/09/24 05/10/24 Range/Units 17:08 04:29 04:56 Total Bilirubin 0.4 0.5 0.4 (0.15-1.2) mg/dL AST 35 H 33 H 14 (0-32) U/L ALT 35 H 37 H 25 (0-33) U/L Alkaline Phosphatase 142 H 170 H 131 H (35-105) U/L Albumin 3.5 3.8 3.3 L (3.5-5.2) g/dL Urine 05/08/24 Range/Units 17:24 Urine Color Yellow (Yellow) Urine Appearance Clear (CLEAR) Urine pH 6.5 (5-7) Ur Specific [place] 1.008 (1.005-1.030) Urine Protein Negative (Negative) Urine Glucose (UA) Negative (Normal) Urine Ketones Negative (Negative) Urine Nitrate Negative (Negative) Urine Bilirubin Negative (Negative) Ur Leukocyte Esterase Negative (Negative) Urine RBC 0-2 (0-2) /hpf Urine WBC 0-5 (0-5) /hpf Cardiac Studies: Echocardiogram 02/10/22 Sestamibi Stress Test (Cardiology) 11/15/21
--- NOTE | 2024-05-10 11:53 | W.PM.OPSUD ---
Surgery/Procedure H&P Update DATE OF PROCEDURE: May 10, 2024 DATE H&P PERFORMED: 05/09/24 H&P UPDATE INFORMATION: I have reviewed H&P completed within last 30 days, I have examined patient prior to procedure and No changes to prior documentation PLANNED PROCEDURE: Operation Date: 05/10/24 11:10 Proposed Procedures p Evacuation of hematoma of spine(Not Applicable) - Jassi Malone DO
--- NOTE | 2024-05-10 12:57 | P.PN_ITS ---
Subjective 2 Subjective: Seen this morning. Patient going for surgery today for hematoma evaluation and potential evacuation. Vitals/I&O/Wt Last Vital Signs Temp 97.3 F L 05/10/24 11:03 Pulse 75 05/10/24 11:03 Resp 18 05/10/24 11:03 BP 145/63 05/10/24 11:03 Pulse Ox 95 05/10/24 11:03 O2 Del Method Room Air 05/10/24 11:03 O2 Flow Rate 2 05/10/24 04:00 05/09/24 05/10/24 05/10/24 22:59 06:59 14:59 Output Total 350 / 2100 100 / 2200 Balance -350 / -1740 -100 / -1840 Weight last 48 hrs Weight 99.875 kg Weight 99.79 kg Weight 100.516 kg Weight 98.883 kg Physical Exam 2 Narrative: In pain Const: COMMON NORMALS: patient oriented x3 and alert GENERAL APPEARANCE: c ooperative NUTRITIONAL APPEARANCE: obese ORIENTATION/CONSCIOUSNESS: Yes awake HENMT: COMMON NORMALS: oropharynx normal Neck/C-Spine: COMMON NORMALS: no JVD Resp: COMMON NORMALS: normal respiratory effort and clear to auscultation bilaterally AUSCULTATION: clear to auscultation bilaterally Cardio: COMMON NORMALS: no JVD, regular rhythm, S1 normal heart sound present, S2 normal heart sound present and No murmurs present (Cardio) RHYTHM: regular rhythm HEART SOUNDS: S1 normal heart sound present and S2 normal heart sound present GI: COMMON NORMALS: Normal to inspection, nondistended, normoactive bowel sounds present, Soft to palpation and non-tender PALPATION: Yes Soft to palpation Extremity: COMMON NORMALS: no joint enlargement and no pedal edema OTHER: Moving both lower extremities. Neuro: COMMON NORMALS: patient oriented x3 and moves all extremities S ENSORIUM/ORIENTATION: Yes alert Skin: COMMON NORMALS: no rashes or lesions noted GENERAL SKIN EXAM: no rashes or lesions noted Urinary Catheter Management: Valerio: Cath Placed During This Visit: yes Reason for Continuing Indwelling Catheter: Acute Urinary Retention or Obstruction Urinary Catheter Date of Insertion: 05/09/24 Urinary Catheter Time of Insertion: 00:45 Data 05/10/24 04:56 05/10/24 04:56 A&P Assessment and plan (1) Intractable pain: Was unable to control pain at home with prescribed opioid, having severe low back pain radiating to both legs. Reviewed vitals, CBC, CMP, UA, ED provider note. Discussed with ED provider. MRI was obtained with finding of postsurgical changes, laminectomy L4-5, diffuse of tissue high signal intensity fluid/edema within the soft tissues of the back. Sagittal inversion recovery and axial T2 images demonstrate high signal intensity fluid at the right laminectomy site and adjacent region resulting in significant encroachment of the spinal canal on the right and proximal right neural foramen with fluid extending posteriorly into the posterior soft tissues on the right. On axial exam this measures about 3.5 cm in length and 1.5-2 cm in width. Good represent postop contained CSF leak or postop fluid such as seroma. Does not appear complex to suggest abscess although infection not excluded. Resulting in severe spinal and proximal right foraminal stenosis due to right-sided encroachment. Other multilevel chronic findings. Findings were discussed with her orthospine surgeon, no indication for acute surgical intervention, with surgery recommendation for admission with steroid therapy and for optimization of pain control. With additional new spinal stenosis as a of monitor inpatient for any progression of swelling, cord compression, monitor for cauda equina syndrome. Requiring IV Dilaudid. Continue with IV opioid pain control every 3 hours, may need adjustment depending on response. Start IV dexamethasone [address] Valerio catheter. Bedrest for today, reposition frequently to prevent pressure ulcers. PT assessment once available on Friday. Acetaminophen, hydrocodone for moderate pain. Back pain. Bowel regimen, MiraLAX. (2) History of lumbar laminectomy for spinal cord decompression: On 05/07. Reviewed orthopedic note. (3) HTN (hypertension): Currently uncontrolled hypertension, blood pressure as high as 190/113 on presentation. Currently 185/87. Likely secondary to severe pain. Treat pain as above. Continue lisinopril, nifedipine. Plan Mild transaminitis, alk phos elevation: Repeat CMP. RLS: Continue pramipexole GERD: PPI Hypothyroidism: Levothyroxine. Requested to confirm home medications, please review and resume as appropriate. 05/10 Postlaminectomy syndrome Hematoma at surgical site. Continue pain control Continue dexamethasone 10 IV push daily Continue baclofen Blood pressure better controlled this morning. N.p.o. since midnight last night. Going for surgical intervention hematoma evacuation today. Attestations 2 Medical Necessity Statement*: Surgical intervention today for evacuation of hematoma. Diagnoses Intractable pain R52 History of lumbar laminectomy for spinal cord decompression Z98.890 HTN (hypertension) I10
[2024-05-10] MEDS: lidocaine-epi 2% PF 1:200,000 20 mL SDV XX (13:00)
[2024-05-10] MEDS: vancomycin 1,000 MG SDV 1000 MG XX (13:14)
[2024-05-10] MEDS: HYDROmorphone 1 mg/mL INJ 1 mL 0.5 MG IVP ×2 (13:49→14:05)
[2024-05-10] MEDS: labetalol 5 mg/mL SDV 20mL IVP (14:15)
--- NOTE | 2024-05-10 14:30 | ANE.PACU2 ---
Inpatient post-anesthesia follow up: Airway intact: Yes Vital signs: Temperature 97.8 F Pulse Rate 58 Respiratory Rate 17 Blood Pressure 149/61 Pulse Oximetry 93 Oxygen Delivery Me thod Nasal Cannula Oxygen Flow Rate 3 Fraction of Inspir ed Oxygen Hydration adequate: Yes Nausea and vomiting: No Pain level: 1 Mental status: Baseline
[2024-05-10] MEDS: clindamycin 900 MG/50 ML PREMIX 100 MG IV (17:15)
[2024-05-10] MEDS: docusate sodium 100 mg Capsule PO (17:16)
[2024-05-10] MEDS: polyethylene glycol 3350 Pkt 17 gm PO (17:18)
[2024-05-11] VITALS: BP 137/64; PULSE 57; RESP 17; TEMP 36.6; O2SAT 94
[2024-05-11] MEDS: clindamycin 900 MG/50 ML PREMIX 100 MG IV (01:02)
[2024-05-11 01:28] VITALS: RESP 16
[2024-05-11] MEDS: HYDROmorphone 1 mg/mL INJ 1 mL IVP ×2 (01:28→06:13)
[2024-05-11 04:00] VITALS: BP 152/74; PULSE 73; RESP 18; TEMP 36.5; O2SAT 97
[2024-05-11] MEDS: HYDROcodone-acetaminophen 7.5-325 mg Tablet 1 TAB PO (04:10)
[2024-05-11 06:08] LABS: Basophils % 0.1 %; Lymphocytes # 1.5 10^3/uL (0.8-4.8); Lymphocytes % 11.4 %; Mean Corpuscular Hemoglobin 28.2 pg (27-33); Mean Corpuscular Volume 88.2 fl (85-98); Mean Platelet Volume 11.4 fL (7.4-10.4); Monocytes # 1.2 10^3/uL (0.2-0.9); Monocytes % 8.8 %; Neutrophils # 10.61 10^3/uL (1.8-7.7); Neutrophils % 79.4 %; Nucleated Red Blood Cells % 0 %; Platelet Count 269 10^3/cmm (157-399); Red Blood Count 4.65 10^6/uL (3.85-5.65); Red Cell Distribution Width 14.3 % (12.1-15.1); White Blood Count 13.36 10^3/uL (3.29-11.43)
[2024-05-11 06:13] VITALS: RESP 16
[2024-05-11 06:28] LABS: Alanine Aminotransferase 16 U/L (0-33); Albumin Level 3.4 g/dL (3.5-5.2); Alkaline Phosphatase 128 U/L (35-105); Anion Gap 13.8 (5-19); Aspartate Amino Transferase 11 U/L (0-32); Blood Urea Nitrogen 35 mg/dL (8-23); Calcium 9.1 mg/dL (8.5-10.5); Carbon Dioxide 26 mmol/L (22-29); Chloride 101 mmol/L (98-107); Globulin 3.2 g/dL (1.3-4.6); Glucose 148 mg/dL (65-115); Osmolality Calculated 293 mOsm/kg (285-295); Potassium 4.8 mmol/L (3.5-5.1); Sodium 136 mmol/L (136-145); Total Bilirubin 0.2 mg/dL (0.15-1.2); Total Protein 6.6 g/dL (6.6-8.7)
[2024-05-11 07:27] VITALS: BP 170/91; PULSE 86; RESP 18; TEMP 36.5; O2SAT 97
--- NOTE | 2024-05-11 07:39 | P.PN_ITS ---
Subjective 2 Subjective: Patient stated that she still in pain but is much improved from before she is able to sit up with less pain. Vitals/I&O/Wt Last Vital Signs Temp 97.7 F 05/11/24 07:27 Pulse 86 05/11/24 07:27 Resp 18 05/11/24 07:27 BP 170/91 05/11/24 07:27 Pulse Ox 97 05/11/24 07:27 O2 Del Method Room Air 05/11/24 07:27 O2 Flow Rate 1 05/10/24 19:38 05/10/24 05/11/24 05/11/24 22:59 06:59 14:59 Intake Total 570 / 1470 290 / 1760 Output Total 300 / 805 350 / 1155 Balance 270 / 665 -60 / 605 Weight last 48 hrs Weight 221 lb Weight 220 lb 3 oz Physical Exam 2 Narrative: 5 out of 5 strength bilateral lower extr emities. Urinary Catheter Management: Valerio: Cath Placed During This Visit: yes Reason for Continuing Indwelling Catheter: Acute Urinary Retention or Obstruction Urinary Catheter Date of Insertion: 05/09/24 Urinary Catheter Time of Insertion: 00:45 Data 05/11/24 05:57 05/11/24 05:57 A&P Assessment and plan (1) History of lumbar laminectomy for spinal cord decompression: Patient is postop day 1 irrigation debridement of hematoma. At this point plan is to discharge her today if okay with the hospitalist. And have her follow-up in clinic in 2 weeks. Attestations 2 Medical Necessity Statement*: Per primary service Coding Level of Care Code Acute Code for Chg Fwd Diagnoses History of lumbar laminectomy for spinal cord decompression Z98.890
[2024-05-11 08:42] VITALS: PULSE 86; RESP 18; O2SAT 97
[2024-05-11] MEDS: docusate sodium 100 mg Capsule PO (10:45)
[2024-05-11] MEDS: lisinopril 20 mg Tablet 40 MG PO (10:45)
[2024-05-11] MEDS: dexamethasone 10 mg/mL INJ IVP (10:46)
[2024-05-11] MEDS: pantoprazole DR 40 mg Tablet PO (10:47)
[2024-05-11] MEDS: NIFEdipine ER (24 hr) 30 mg Tablet 90 MG PO (10:47)
--- NOTE | 2024-05-11 10:47 | PM.DCS ---
Discharge Providers Date of Admission: 05/09/24 13:11 Date of Discharge: May 11, 2024 Attending Provider at Admission: Avel Wright Attending Provider at Discharge: Chloé Landa MD Primary Care Provider: Arnoldo Wiley Diagnoses at Discharge Discharge Diagnosis (1) History of lumbar laminectomy for spinal cord decompression: Status: Acute Reason for Visit Reason for Visit: back pain s/p surgery Hospital Course Hospital Course patient was admitted for postlaminectomy syndrome with intractable pain. MRI was obtained with finding of postsurgical changes and high signal intensity fluid edema within the soft tissues of the back. Suspected hematoma versus CSF leak seen. Abscess not suspected but infection not excluded. Spine surgeon Dr. Malone was consulted. Patient was taken back to surgery for hematoma evacuation. Postsurgery she did well and her pain resolved. She was cleared for discharge by spine surgeon and was sent home in stable condition. Patient was given appointment to follow-up with spine surgeon in next 2 weeks and given activity restrictions. Patient sent home in stable condition at this time. Physical Exam Narrative: no acute distress, sitting up in recliner, appears happy Const: COMMON NORMALS: patient oriented x3 and alert GENERAL APPEARANCE: cooperative NUTRITIONAL APPEARANCE: obese ORIENTATION/CONSCIOUSNESS: Yes awake HENMT: COMMON NORMALS: oropharynx normal Neck/C-Spine: COMMON NORMALS: no JVD Resp: COMMON NORMALS: normal respiratory effort and clear to auscultation bilaterally AUSCULTATION: clear to auscultation bilaterally Cardio: COMMON NORMALS: no JVD, regular rhythm, S1 normal heart sound present, S2 normal heart sound present and No murmurs present (Cardio) RHYTHM: regular rhythm HEART SOUNDS: S1 normal heart sound present and S2 normal heart sound present GI: COMMON NORMALS: Normal to inspection, nondistended, normoactive bowel sounds present, Soft to palpation and non-tender PALPATION: Yes Soft to palpation Extremity: COMMON NORMALS: no joint enlargement and no pedal edema OTHER: Moving both lower extremities. Neuro: COMMON NORMALS: patient oriented x3 and moves all extremities SENSORIUM/ORIENTATION: Yes alert Skin: COMMON NORMALS: no rashes or lesions noted GENERAL SKIN EXAM: no rashes or lesions noted Urinary Catheter Management: Valerio: Cath Placed During This Visit: yes Reason for Continuing Indwelling Catheter: Acute Urinary Retention or Obstruction Urinary Catheter Date of Insertion: 10/13/24 Urinary Catheter Time of Insertion: 00:45 Discharge Data Studies Completed and Pending Completed Studies During Hospitalization Category Date Time Status XR lumbar spine 2-3V* [id number] Routine Exams 05/10/24 00:00 Completed MR lumbar spine wo con* [id number] Stat MRI 05/08/24 16:56 Completed Radiology Impressions Lumbar Spine MRI 05/08/24 16:56 IMPRESSION: 1. Postsurgical change with right laminectomy L4-L5. Suggestion of diffuse soft tissue high signal intensity fluid/edema within the soft tissues of the back. In addition, sagittal inversion recovery and axial T2 images demonstrate high signal intensity fluid at the right laminectomy site and adjacent region resulting in significant encroachment of the spinal canal on the right and proximal right neural foramen, with fluid extending posteriorly into the posterior soft tissues on the right. On axial exam, this measures approximately 3.5 cm in length and approximately 1.5-2 cm in width. This could represent postop contained CSF leak or postop fluid such as seroma. This does not appear complex to suggest abscess, though infection not excluded. In any event, this results in severe spinal and proximal right foraminal stenosis due to right-sided encroachment. 2. Other multilevel chronic findings as noted above. ADDENDUM: 05/08/242149 THIS REPORT CONTAINS FINDINGS THAT MAY BE CRITICAL TO PATIENT CARE. The findings were verbally communicated via telephone conference with TEMITOPE PEDRO at 9:47 PM CDT on 05/08/2024. The findings were acknowledged and understood. Lumbar Spine X-Ray 05/10/24 00:00 IMPRESSION: Intraoperative imaging during spinal procedure. Laboratory Results WBC 13.36 10^3/uL (3.29-11.43) H 05/11/24 05:57 RBC 4.65 10^6/uL (3.85-5.65) 05/11/24 05:57 Hgb 13.10 g/dL (11.27-16.99) 05/11/24 05:57 Hct 41.0 % (36-47) 05/11/24 05:57 MCV 88.2 fl (85-98) 05/11/24 05:57 MCH 28.2 pg (27-33) 05/11/24 05:57 MCHC 32.0 g/dL (30-55) 05/11/24 05:57 RDW 14.3 % (12.1-15.1) 05/11/24 05:57 Plt Count 269 10^3/cmm (157-399) 05/11/24 05:57 MPV 11.4 fL (7.4-10.4) H 05/11/24 05:57 Neut % (Auto) 79.4 % 05/11/24 05:57 Lymph % (Auto) 11.4 % 05/11/24 05:57 [place] % (Auto) 8.8 % 05/11/24 05:57 Eos % (Auto) 0.0 % 05/11/24 05:57 Baso % (Auto) 0.1 % 05/11/24 05:57 Neut # (Auto) 10.61 10^3/uL (1.8-7.7) H 05/11/24 05:57 Lymph # (Auto) 1.5 10^3/uL (0.8-4.8) 05/11/24 05:57 [place] # (Auto) 1.2 10^3/uL (0.2-0.9) H 05/11/24 05:57 Eos # (Auto) 0.0 10^3/uL (0.0-0.8) 05/11/24 05:57 Baso # (Auto) 0.0 10^3/uL (0.0-0.1) 05/11/24 05:57 Nucleated RBC % (auto) 0 % 05/11/24 05:57 Nucleated RBCs # 0.0 /100WBC 05/11/24 05:57 Sodium 136 mmol/L (136-145) 05/11/24 05:57 Potassium 4.8 mmol/L (3.5-5.1) 05/11/24 05:57 Chloride 101 mmol/L (98-107) 05/11/24 05:57 Carbon Dioxide 26 mmol/L (22-29) 05/11/24 05:57 Anion Gap 13.8 (5-19) 05/11/24 05:57 BUN 35 mg/dL (8-23) H 05/11/24 05:57 Creatinine 1.0 mg/dL (0.5-0.9) H 05/11/24 05:57 GFR Calculation Not Reportable 05/11/24 05:57 Glucose 148 mg/dL (65-115) H 05/11/24 05:57 Calculated Osmolality 293 mOsm/kg (285-295) 05/11/24 05:57 Calcium 9.1 mg/dL (8.5-10.5) 05/11/24 05:57 Total Bilirubin 0.2 mg/dL (0.15-1.2) 05/11/24 05:57 AST 11 U/L (0-32) 05/11/24 05:57 ALT 16 U/L (0-33) 05/11/24 05:57 Alkaline Phosphatase 128 U/L (35-105) H 05/11/24 05:57 Total Protein 6.6 g/dL (6.6-8.7) 05/11/24 05:57 Albumin 3.4 g/dL (3.5-5.2) L 05/11/24 05:57 Globulin 3.2 g/dL (1.3-4.6) 05/11/24 05:57 Urine Color Yellow (Yellow) 05/08/24 17:24 Urine Appearance Clear (CLEAR) 05/08/24 17:24 Urine pH 6.5 (5-7) 05/08/24 17:24 Ur Specific [place] 1.008 (1.005-1.030) 05/08/24 17:24 Urine Protein Negative (Negative) 05/08/24 17:24 Urine Glucose (UA) Negative (Normal) 05/08/24 17:24 Urine Ketones Negative (Negative) 05/08/24 17:24 Urine Blood Negative (Negative) 05/08/24 17:24 Urine Nitrate Negative (Negative) 05/08/24 17:24 Urine Bilirubin Negative (Negative) 05/08/24 17:24 Urine Urobilinogen 1.0 mg/dL (Negative) 05/08/24 17:24 Ur Leukocyte Esterase Negative (Negative) 05/08/24 17:24 Urine RBC 0-2 /hpf (0-2) 05/08/24 17:24 Urine WBC 0-5 /hpf (0-5) 05/08/24 17:24 Ur Squamous Epith Cells 0-5 /hpf (0-5) 05/08/24 17:24 Amorphous Sediment Not Reportable 05/08/24 17:24 Urine Bacteria None seen /hpf (NONE) 05/08/24 17:24 Hyaline Casts 0.40 /lpf 05/08/24 17:24 Vitals Last Vital Signs Temp 97.7 F 05/11/24 07:27 Pulse 86 05/11/24 08:42 Resp 18 05/11/24 08:42 BP 170/91 05/11/24 07:27 Pulse Ox 97 05/11/24 08:42 O2 Del Method Nasal Cannula 05/11/24 08:42 O2 Flow Rate 1 05/11/24 08:42 Discharge Plan Discharge Patient Disposition: Home Condition: Stable Prescriptions: Continued nifedipine 90 mg tablet extended release 24hr 90 mg PO DAILY furosemide 20 mg tablet 20 mg PO DAILY omeprazole 40 mg capsule,delayed release(DR/EC) 40 mg PO DAILY trazodone 100 mg tablet 100 mg PO .qhs baclofen 5 mg tablet 5 mg PO TID PRN (Reason: Muscle Spasm) acetaminophen [Tylenol Extra Strength] 500 mg tablet 500 mg PO Q6H PRN (Reason: Pain) alendronate [Fosamax] 70 mg tablet 70 mg PO Q7D Rx Instructions: ON MONDAYS aspirin 81 mg Tablet,Delayed Release (Dr/Ec) 81 mg PO DAILY Hold Instructions: Resume on 05/08/24. nitroglycerin [Nitrostat] 0.4 mg Tablet, Sublingual 0.4 mg SUBLINGUAL Q5M PRN (Reason: Chest Pain) Rx Instructions: do not exceed 3 doses per episode levothyroxine 150 mcg Tablet 150 mcg PO QAM Qty: 90 3RF lisinopril 40 mg tablet 40 mg PO BID oxycodone-acetaminophen 7.5-325 mg Tablet 1 tab PO Q4H PRN (Reason: pain`) pramipexole 0.75 mg Tablet 0.75 mg PO DAILY Discontinued oxycodone-acetaminophen 10-325 mg tablet 1 tab PO Q4H PRN (Reason: pain) 7 Days Qty: 42 0RF Discharge Orders: Discharge Order (Routine); Ordered 05/11/24 Ordered By: Chloé Landa Referrals: Jassi Malone DO [Physician] - 05/25/24 2:45 pm Arnoldo Wiley [Primary Care Provider] - 05/17/24 8:20 am Discharge Diet: Advance as tolerated Discharge Activity: Limit activity as instructed Patient Instructions: Acute Wound Care (DC), Pain Management After Surgery (GEN), Opioid Safety, Post Anesthesia Care Activity Restrictions/Additional Instructions: [facility] The following is a list of instructions, from your provider, to follow upon your discharge to ensure you have the optimal recovery from your recent injury orsurgery. Follow-up care is a mtz part of your treatment and safety. Be sure to make and go to all appointments, and call your doctor if you are having problems. If you do not already have a follow-up appointment made, call Dr. Malone office in the next 1-3 days to make follow up appointment for 2 weeks at [phone]. It is also a good idea to know your test results and keep a list of the medicines you take. Medications will be prescribed for you at your provider's discretion. These medications are to be used as instructed; if they are taken more often that prescribed they will not be refilled early and in most cases will not be refilled at all. > When a refill is needed,you should contact pal bhat 2-3 business days before your prescription runs out. Medications will NOT be refilled by field supervisor seed production providers after hours! > Many pain medications contain Tylenol (Acetaminophen). Do not consume more than 4,000 mg of Tylenol per day in total with any combination ofmedications. > Pain medications can cause constipation. Please use an over the counter stool softener as directed, while taking pain medications. Consulty our local pharmacist with questions or recommendations on stool softeners. If constipation persists, contact our office or your primary care provider. > While under our care,you are not to receive pain medications or other controlled substances from any other provider unless our office is notified and approves. Any attempts to do so will result in refusal to prescribe any further pain medications and possible dismissal from our practice. ? Your wound and/or dressing should remain clean and dry for 2 days after surgery. On postoperative day 2 (48 hours after your surgery) the dressing (if present) should be removed and it is okay to shower and get the incision wet. Pad dry afterwards. No further dressing should be required from that point on. Do not put any creams or ointments on theincision > It is normal for there to be a small amount of discharge (bloody or blood tinged) present from a surgical wound for the first 1-3days. > The wound should be examined twice a day for signs of infection. Mild redness or bruising is to be expected but indications that an infection maybe starting would include; An increase in redness, swelling, or discharge, a foul odor present around the incision, and/or a fever greater than 101 ?F ? Showering is permitted, however we ask that you do not take a bath, sit in a whirlpool / Jacuzzi, or go swimming for 1 month. For only the first 2 days after surgery, lt wilt be necessary for you to cover your wound/dressing with plastic and tape to keep it dry. ? Walking is essential for the healing process after surgery. We would like you to slowly advance your walking. This should be done on relatively flat clear ground (inside or out) or can be done on a treadmill. Remember this goal does not have to happen all at once, slowly increase your distance and duration. This can be broken into more more than one walk per day as tolerated. Patients who walk as directed after surgery rarely require Physical Therapy. In the unlikely event this issue arises your provider will direct hospital staff to make the appropriate arrangements. ? No lifting over 5 pounds {a gallon of milk) or bending/twisting until further notice. Each of these activities places an unnecessary amount of stress onto the body and can impede the delicate healing process. > Instead of bending at the waist, keep your back straight and bend at the knees. > Instead of twisting your torso, keep your back straight and turn your entire body with your feet. ? You may sleep in any position which makes you comfortable. Many patients find comfort sleeping in a reclining chair. It is not abnormal to have difficulty sleeping for the first several weeks following your surgery. We recommend trying Benadry! or Tylenol PM as directed to help with your sleeping difficulties. Both medications are over the counter and available withoutprescription. ? NO SMOKING!!! Smoking dramatically increases the probability of developing postoperative wound infections. ? Common complaints after lumbar and/or thoracic spine surgery include, but are not limited to: numbness and/or tingling in the legs, pain around the incision and surrounding tissues, muscle spasms, or stiffness of the middle to low back. Contact our office if these symptoms persist or if an acute change occurs. ? No driving for the first 3-5days, and not while taking narcotics until seen at your follow-up appointment and cleared. There are no restrictions for riding on short trips, however if you take a longer trip, arrangements should be made to make regular stops to get out of the vehicle and stretch . ? Swelling is an unfortunate event that will take place with any surgery and is the primary source of your postoperative discomfort. While walking and regular approved activities helps control inflammation, there are additional steps you can take to minimizeswelling. > Place ice over the surgical site and surrounding tissue for twenty minutes, followed by applying a low/medium heat (heating pad) for an additional twenty minutes every 1-2 hours as needed for painrelief. > You may use of over the counter anti-inflammatory medications (Ibuprofen, Motrin, Aleve, Advil, etc) as directed on the package label. These types of medicines wm significantly reduce the amount of discomfort you experience after surgery from swelling. It should be noted that if you have and allergy to any of these medications, or a history of ulcers or kidney disease you should consult you primary care provider prior to starting these medications. Discharge Attestations Time Spent in Discharge Care*: less than 30 min Quality Metrics Clinical Quality Measures [ No reported AMI, CVA or VTE this stay] Coding Level of Care Code Acute Code for Chg Fwd Diagnoses History of lumbar laminectomy for spinal cord decompression Z98.890
[2024-05-11] MEDS: pramipexole 0.25 mg Tablet 0.75 MG PO (10:48)
[2024-05-11] MEDS: polyethylene glycol 3350 Pkt 17 gm PO (10:48)
--- NOTE | 2024-05-12 11:00 | PM.OP ---
Operative Report Date of procedure: May 10, 2024 Pre-op diagnosis: Hematoma postoperatively at L4-5 Post-op diagnosis: same Procedure done: Irrigation debridement and evacuation of hematoma of lumbar spine Surgeon: Jassi Malone DO Estimated blood loss (mL): 5 Procedure: Irrigation debridement and evacuation of hematoma of lumbar spine Patient brought the operative suite after going anesthesia was placed in the prone position. All areas appear well-padded patient's prepped draped in sterile fashion. Skin incision made over the previous skin incision. Sutures were removed. The other tubes were then passed. There is a hematoma present this was irrigated out microscope was brought in and the L5 nerve was explored and found to be completely free. Drill was used to take a little bit more of the facet medially. In order to facilitate coagulating epidural bleeders. All the epidural bleeders were coagulated bipolar. L4 nerve was traced out the L4-5 foramen felt to be adequately free and decompressed. There was no evidence of any bleeding at this time tubular retractors were removed. Wound was irrigated and closed with Vicryl and Monocryl suture. Sterile dressings were applied patient was transferred to the PACU in stable condition.
== END 2024-05-11 17:54 | disposition home or self-care (01) | DRG 516 ==
LOC: ER 22:00 → MEDSURG 23:29
PROVIDERS: Orthopaedic Surgery; Admitting Provider Internal Medicine; Emergency Provider Emergency Medicine; PCP Family Medicine; Visit Provider Internal Medicine
PROC: 0S900ZZ Drainage of Lumbar Vertebral Joint, Open Approach (ICD-10-PCS; CPT 63001; principal; 2024-05-10 10:50)
DX: M96.1 Postlaminectomy syndrome, not elsewhere classified (principal); M96.840 Postprocedural hematoma of a musculoskeletal structure following a musculoskeletal system procedure; G89.18 Other acute postprocedural pain; Z79.82 Long term (current) use of aspirin; Z98.1 Arthrodesis status; E03.9 Hypothyroidism, unspecified; K21.9 Gastro-esophageal reflux disease without esophagitis; G25.81 Restless legs syndrome; M79.7 Fibromyalgia; Z86.73 Personal history of transient ischemic attack (TIA), and cerebral infarction without residual deficits; I12.9 Hypertensive chronic kidney disease with stage 1 through stage 4 chronic kidney disease, or unspecified chronic kidney disease; E11.22 Type 2 diabetes mellitus with diabetic chronic kidney disease; N18.30 Chronic kidney disease, stage 3 unspecified; E78.5 Hyperlipidemia, unspecified; F32.9 Major depressive disorder, single episode, unspecified
CPT/HCPCS: 36415; 51702; 72100; 72148; 76000; 80053; 81001; 85025; 96372; 96374; 96376; 97116; 97161; 97530; 99285; G0378; J0360; J1100; J1170; J1650; J2405; J2704; J3010; J3370; J3490; J7030

== ENCOUNTER 2024-05-28 19:49 | Emergency (ER) | payer OTHER, MEDICARE, SELFPAY ==
--- NOTE | 2024-05-28 20:07 | CTR_ITS ---
PROCEDURE INFORMATION: Exam: CT Head Without Contrast Exam date and time: 05/28/2024 8:13 PM Age: 78 years old Clinical indication: Headache; Patient HX: C/O RT ocular pain with SERRANO. History of TIA. TECHNIQUE: Imaging protocol: Computed tomography of the head without contrast. Radiation optimization: All CT scans at this facility use at least one of these dose optimization techniques: automated exposure control; mA and/or kV adjustment per patient size (includes targeted exams where dose is matched to clinical indication); or iterative reconstruction. COMPARISON: MR head wo con* [id number] 05/29/2018 10:31 AM RADIATION DOSE METRICS: Total DLP (mGy-cm): 1109.28 FINDINGS: Brain: Mild cortical volume loss. Mild hypodensities in supratentorial periventricular and subcortical white matter, consistent with microangiopathy. No intracranial hemorrhage. Cerebral ventricles: No ventriculomegaly. Pituitary gland and sella: Stable empty sella. Paranasal sinuses: Postsurgical changes in the left sinuses. Mucosal thickening in the bilateral ethmoid air cells and sphenoid sinuses. No fluid level. Mastoid air cells: Visualized mastoid air cells are well aerated. Orbital cavities: Prior cataract surgery. Nasal cavity: Postsurgical changes in the left nasal cavity. Bones: Unremarkable. No acute fracture. Soft tissues: Unremarkable. Vasculature: No hyperdense artery. CT/CT head wo con* [id number] IMPRESSION: 1. No acute intracranial abnormality.
[2024-05-28 20:13] VITALS: BP 163/78; PULSE 80; RESP 20; TEMP 36.9; O2SAT 96; BMI 23.8
[2024-05-28 20:46] VITALS: BP 163/78; PULSE 77; RESP 16; O2SAT 96
[2024-05-28 20:49] VITALS: RESP 16; O2SAT 96
[2024-05-28] MEDS: morphine 4 mg/mL SDV 1 mL 6 MG IM (20:49)
[2024-05-28] MEDS: ondansetron 4 MG Tablet PO (20:50)
--- NOTE | 2024-05-28 21:38 | W.ED.EYEPROB ---
HPI - Eye Problem General: Chief complaint: Eye Problems Stated complaint: Right eye problems Time Seen by Provider: 05/28/24 19:54 History of Present Illness: This patient is a 78-year-old white female who presents to the emergency department with right eye pain and bleeding from the eye . Patient states she had sudden onset of headache behind the right eye about an hour and a half prior to arrival. She states her vision is somewhat blurry in the right eye as well. She has not had any nausea or vomiting. Associated symptoms: Reports headache(s) Related Data Home Medications Medication Instructions Recorded Confirmed acetaminophen 500 mg tablet 500 mg PO Q6H PRN Pain 02/27/21 05/10/24 (Tylenol Extra Strength) alendronate 70 mg tablet (Fosamax) 70 mg PO Q7D 02/27/21 05/10/24 nitroglycerin 0.4 mg sublingual 0.4 mg sublingual Q5M PRN Chest 02/10/22 05/10/24 tablet (Nitrostat) Pain aspirin 81 mg tablet,delayed 81 mg PO DAILY 08/27/22 05/10/24 release baclofen 5 mg tablet 5 mg PO TID PRN Muscle Spasm 05/04/24 05/10/24 furosemide 20 mg tablet 20 mg PO DAILY 05/04/24 05/10/24 nifedipine 90 mg tablet,extended 90 mg PO DAILY 05/04/24 05/10/24 release 24 hr omeprazole 40 mg capsule,delayed 40 mg PO DAILY 05/04/24 05/10/24 release trazodone 100 mg tablet 100 mg PO .qhs 05/04/24 05/10/24 lisinopril 40 mg tablet 40 mg PO BID 05/10/24 05/10/24 oxycodone-acetaminophen 7.5 mg-325 1 tab PO Q4H PRN pain` 05/10/24 05/10/24 mg tablet pramipexole 0.75 mg tablet 0.75 mg PO DAILY 05/10/24 05/10/24 Previous Rx's Medication Instructions Recorded levothyroxine 150 mcg tablet 150 mcg PO QAM #90 tabs 02/12/22 Allergies Allergy/AdvReac Type Severity Reaction Status Date / Time aspartame Allergy Unknown Unknown Verified 05/04/24 11:44 capsaicin Allergy Unknown Unresponsiv Verified 05/04/24 11:44 e lorazepam Allergy Unknown Unknown Verified 05/04/24 11:44 penicillin G Allergy Unknown Unknown Verified 05/04/24 11:44 pentazocine Allergy Unknown Unknown Verified 05/04/24 11:44 ranitidine Allergy Unknown Unknown Verified 05/04/24 11:44 topiramate Allergy Unknown Unknown Verified 05/04/24 11:44 tuberculin, purified protein Allergy Unknown Unknown Verified 05/04/24 11:44 deriva amlodipine AdvReac ADR-Nausea Verified 05/04/24 11:44 metformin AdvReac ADR-Nausea Verified 05/04/24 11:44 sulfamethoxazole AdvReac ADR-Nausea Verified 05/04/24 11:44 [From Sulfamethoxazole-Trimethoprim] trimethoprim AdvReac ADR-Nausea Verified 05/04/24 11:44 [From Sulfamethoxazole-Trimethoprim] pentazocine-naloxone Allergy Unknown Unknown Uncoded 05/04/24 11:37 Review of Systems General: Reports: 10 or more systems reviewed and unremarkable except in HPI and below Eyes: Reports: blurry vision and eye discomfort Musc: Reports: back pain Neuro: Reports: headache(s) PFSH ED PFSH: Medical History Chest pain Angina pectoris without myocardial infarction Bradycardia Acquired hypothyroidism GERD (gastroesophageal reflux disease) Lumbar spondylolysis DDD (degenerative disc disease), lumbar Facet syndrome Restless leg syndrome Atherosclerosis ED positive Peripheral edema Fibromyalgia Situational depression Murmur TIA (transient ischemic attack) Essential (primary) hypertension Dyslipidemia 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 chronic kidney disease Osteoarthritis Major depressive disorder Surgical History History of cardiac cath Family History Other CAD (coronary artery disease) Social History Smoking and tobacco/nicotine status: never used tobacco/nicotine Physical Exam Const: COMMON NORMALS: patient oriented x3 and no limitations GENERAL APPEARANCE: cooperative and in distress (mild) HENMT: COMMON NORMALS: normocephalic, atraumatic, Normal nasal mucous membranes and turbinates present, moist oral mucous membranes and oropharynx normal HEAD & SCALP: normal to inspection, normocephalic and atraumatic FACE & SINUS: normal facial exam NOSE: Normal nasal mucous membranes and turbinates present Eye: COMMON NORMALS: Equal, round and reactive pupils present and EOMs intact bilaterally VISUAL ACUITY: Yes acuity normal (20/25 right eye, 20/20 left eye) CONJUNCTIVA: Yes conjunctival abnormal (Right subconjunctival hemorrhage) PUPIL: Yes Equal, round and reactive pupils present Neck/C-Spine: COMMON NORMALS: supple and no JVD Chest: COMMONS NORMALS: normal inspection of the chest Resp: COMMON NORMALS: normal respiratory effort and clear to auscultation bilaterally AUSCULTATION: clear to auscultation bilaterally Cardio: COMMON NORMALS: no JVD, regular rate, regular rhythm, No gallops present (Cardio), No murmurs present (Cardio) and No rub (Cardio) RATE: regular rate RHYTHM: regular rhythm GI: COMMON NORMALS: Normal to inspection, nondistended, normoactive bowel sounds present, Soft to palpation and non-tender AUSCULTATION: Yes normoactive bowel sounds PALPATION: Yes Soft to palpation : COMMON NORMALS: Yes no CVA tenderness BLADDER/KIDNEY EXAM: Yes no CVA tenderness Back/Pelvis: COMMON NORMALS: no CVA tenderness and thoracic and lumbar spine normal to inspection Extremity: COMMON NORMALS: normal to inspection Neuro: COMMON NORMALS: patient oriented x3 and CN's II-XII intact bilaterally Psych: COMMON NORMALS: mental status grossly normal, Normal thought process present and cooperative THOUGHT PROCESS: Normal thought process present Skin: COMMON NORMALS: no rashes or lesions noted, turgor normal and no jaundice GENERAL SKIN EXAM: no rashes or lesions noted and turgor normal Course Vital Signs: Vital signs: Vital Signs Temperature 98.4 F 05/28/24 20:13 Pulse Rate 77 05/28/24 20:46 Respiratory Rate 16 05/28/24 20:49 Blood Pressure 163/78 05/28/24 20:46 Pulse Oximetry 96 05/28/24 20:49 Oxygen Delivery Me thod Room Air 05/28/24 20:46 MDM - Eye Problem Medical Decision Making Head CT was read by the radiologist as normal. Patient was given 6 mg of morphine IM for her back pain and her headache along with 4 mg of Zofran p.o. Symptoms have resolved. Discussed the diagnosis with the patient. 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 She was discharged in stable condition. Lab Data Radiology Impressions Head CT 05/28/24 20:07 IMPRESSION: 1. No acute intracranial abnormality. All radiology interpretation(s) finalized by discharge Discharge Plan Discharge Patient Disposition: Home Clinical Impression: Subconjunctival hemorrhage Qualifiers: Laterality: right Qualified Code(s): H11.31 - Conjunctival hemorrhage, right eye Headache Qualifiers: Headache type: unspecified Headache chronicity pattern: acute headache Intractability: not intractable Qualified Code(s): R51.9 - Headache, unspecified Condition: Stable Prescriptions: No Action nifedipine 90 mg tablet extended release 24hr 90 mg PO DAILY furosemide 20 mg tablet 20 mg PO DAILY omeprazole 40 mg capsule,delayed release(DR/EC) 40 mg PO DAILY trazodone 100 mg tablet 100 mg PO .qhs baclofen 5 mg tablet 5 mg PO TID PRN (Reason: Muscle Spasm) acetaminophen [Tylenol Extra Strength] 500 mg tablet 500 mg PO Q6H PRN (Reason: Pain) alendronate [Fosamax] 70 mg tablet 70 mg PO Q7D Rx Instructions: ON MONDAYS aspirin 81 mg Tablet,Delayed Release (Dr/Ec) 81 mg PO DAILY Hold Instructions: Resume on 05/08/24. nitroglycerin [Nitrostat] 0.4 mg Tablet, Sublingual 0.4 mg SUBLINGUAL Q5M PRN (Reason: Chest Pain) Rx Instructions: do not exceed 3 doses per episode levothyroxine 150 mcg Tablet 150 mcg PO QAM Qty: 90 3RF lisinopril 40 mg tablet 40 mg PO BID oxycodone-acetaminophen 7.5-325 mg Tablet 1 tab PO Q4H PRN (Reason: pain`) pramipexole 0.75 mg Tablet 0.75 mg PO DAILY Discharge Orders: Discharge ED (Routine); Ordered 05/28/24 Ordered By: Addi Leung Referrals: Arnoldo Wiley [Primary Care Provider] - Patient Instructions: Subconjunctival Hemorrhage Activity Restrictions/Additional Instructions: Follow-up with your primary care provider and/or 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
[2024-05-28 21:47] VITALS: BP 152/82; PULSE 71; RESP 16; O2SAT 90
== END 2024-05-28 21:49 | disposition home or self-care (01) ==
PROVIDERS: Emergency Provider Emergency Medicine; PCP Family Medicine
DX: H11.31 Conjunctival hemorrhage, right eye (principal); R51.9 Headache, unspecified; Z79.82 Long term (current) use of aspirin; E11.22 Type 2 diabetes mellitus with diabetic chronic kidney disease; I12.9 Hypertensive chronic kidney disease with stage 1 through stage 4 chronic kidney disease, or unspecified chronic kidney disease; N18.30 Chronic kidney disease, stage 3 unspecified; Z86.73 Personal history of transient ischemic attack (TIA), and cerebral infarction without residual deficits
CPT/HCPCS: 70450; 96372; 99284; J2270; Q0162

== ENCOUNTER → 2024-06-03 14:54 | Outpatient (BNVA) | payer OTHER, MEDICARE, SELFPAY | PROVIDERS: PCP Family Medicine; Visit Provider Orthopaedic Surgery | DX: Z98.890 Other specified postprocedural states (principal) | CPT/HCPCS: 99024 ==

== ENCOUNTER → 2025-02-15 15:06 | Outpatient (BNVA) | payer MEDICARE, OTHER, SELFPAY | PROVIDERS: PCP Family Medicine; Visit Provider Physician Assistant | DX: S69.91XA Unspecified injury of right wrist, hand and finger(s), initial encounter (principal); W54.0XXA Bitten by dog, initial encounter; M19.041 Primary osteoarthritis, right hand | CPT/HCPCS: 73130 ==

== ENCOUNTER 2025-02-15 15:45 | Outpatient (CLI) | payer MEDICARE, OTHER, SELFPAY | END 2025-02-15 15:46 | disposition home or self-care (01) | LOC: SOT 15:48 | PROVIDERS: PCP Family Medicine; Visit Provider Physician Assistant | DX: Z46.89 Encounter for fitting and adjustment of other specified devices (principal); S69.91XA Unspecified injury of right wrist, hand and finger(s), initial encounter; W54.0XXA Bitten by dog, initial encounter | CPT/HCPCS: 97760; 99203; L3935 ==

== ENCOUNTER → 2025-04-21 15:43 | Outpatient (BNVA) | payer MEDICARE, OTHER, SELFPAY | PROVIDERS: PCP Family Medicine; Visit Provider Orthopaedic Surgery | DX: M43.16 Spondylolisthesis, lumbar region (principal); Z98.890 Other specified postprocedural states | CPT/HCPCS: 72100; 99213 ==

== ENCOUNTER 2025-05-24 12:37 | Outpatient (CLI) | payer MEDICARE, OTHER, SELFPAY ==
--- NOTE | 2025-05-24 13:00 | MR_ITS ---
WS: [id number] MRI LUMBAR SPINE NONCONTRAST TECHNIQUE: Sagittal T1, T2 and STIR imaging. Axial T1 and T2 imaging. CLINICAL INFORMATION: back pain COMPARISON: MRI 2023 FINDINGS: Prior RIGHT laminectomy L4-5. L1-L2: Progressed disc narrowing. Mild disc bulging with progressed moderate central canal stenosis. Impingement on the subarticular recess. Moderate facet arthropathy. Moderate RIGHT foraminal narrowing. L2-L3: Mild disc bulging with moderate to severe central canal stenosis progressed compared to previous. Impingement of the subarticular recess. Moderate facet arthropathy ligamentum flavum hypertrophy. Moderate RIGHT and mild LEFT foraminal narrowing. L3-L4: Mild disc bulging with moderate central canal stenosis appears progressed. Moderate facet arthropathy. Narrowing of the subarticular recess. Mild bilateral foraminal narrowing. L4-L5: Grade 1 anterolisthesis. Central canal stenosis at this level is improved. Mild residual narrowing of the thecal sac. Moderate RIGHT and mild LEFT foraminal narrowing. Moderate facet arthropathy. L5-S1: Mild disc bulging with impingement of the LEFT subarticular recess. Moderate facet arthropathy. Mild LEFT and no significant RIGHT foraminal narrowing. Visualized pelvic bony structures: Normal. Paravertebral soft tissues: Normal. MR/MR lumbar spine wo con* [id number] IMPRESSION: 1. Prior hemilaminectomy L4-5 with improved central canal stenosis compared to previous. Mild residual narrowing of the thecal sac. 2. Progressed moderate central canal stenosis L1-2 and moderate to severe at L 2-3 with impingement of the subarticular recess. 3. Progressed moderate central canal stenosis L3-4. 4. Disc bulging L5-S1 impinges the traversing LEFT greater than RIGHT S1 nerve roots 5. Moderate RIGHT L1-2, RIGHT L2-3, and RIGHT L4-5 foraminal narrowing
== END 2025-05-24 12:38 | disposition home or self-care (01) ==
PROVIDERS: PCP Family Medicine; Visit Provider Orthopaedic Surgery
DX: Z98.890 Other specified postprocedural states (principal); M43.16 Spondylolisthesis, lumbar region; M48.061 Spinal stenosis, lumbar region without neurogenic claudication; R93.7 Abnormal findings on diagnostic imaging of other parts of musculoskeletal system; M51.379 Other intervertebral disc degeneration, lumbosacral region without mention of lumbar back pain or lower extremity pain; M51.369 Other intervertebral disc degeneration, lumbar region without mention of lumbar back pain or lower extremity pain; M47.896 Other spondylosis, lumbar region; M24.28 Disorder of ligament, vertebrae; M47.897 Other spondylosis, lumbosacral region; M48.07 Spinal stenosis, lumbosacral region
CPT/HCPCS: 72148

== ENCOUNTER → 2025-06-07 14:37 | Outpatient (BNVA) | payer MEDICARE, OTHER, SELFPAY | PROVIDERS: PCP Family Medicine; Visit Provider Orthopaedic Surgery | DX: Z01.818 Encounter for other preprocedural examination (principal); M48.062 Spinal stenosis, lumbar region with neurogenic claudication | CPT/HCPCS: 36415; 80053; 81001; 83036; 85025; 99214 ==